=== PATIENT | male | born 1950 | race African-American/Black ===

== ENCOUNTER 2021-09-06 09:58 | Emergency (ER) | payer MEDICARE, SELFPAY ==
--- NOTE | ~2021-09-06 | XR_ITS ---
XR lumbar spine 2-3V 09/06/2021 10:36 Indication: Low back pain Procedure: 3 views lumbar spine Comparison: No prior studies for comparison. Findings: There is disc narrowing at L4-5 and L5-S1. There is mild lower lumbar facet hypertrophy. Th ere is a hemangioma of L4. No acute fracture, subluxation or dislocation. No evidence for spondylolis thesis. Impression: 1: Mild lumbar spondylosis. Reviewed, dictated and finalized at location A. KEN HANGER Impression: 1: Mild lumbar spondylosis.
[2021-09-06 10:03] VITALS: BP 160/64; PULSE 109; RESP 14; TEMP 36.8; O2SAT 97
--- NOTE | 2021-09-06 10:21 | ED.BACK ---
HPI - Back Pain/Injury General Chief Complaint: Back Pain/Injury Stated Complaint: back pain Time Seen by Provider: 09/06/21 10:11 History of Present Illness HPI Narrative: 70-year-old male history of chronic back pain presents to the emergency room with acute low back pain. Denies trauma or injury. States pain is worse when attempting to bend forward to pick out hand objects. Denies pain when rotating or bending back laterally. Patient denies saddle anesthesia. Patient denies difficulty urinating or with bowel habits. Denies radicular pain. Related Data Allergies Allergy/AdvReac Type Severity Reaction Status Date / Time No Known Allergies Allergy Uncoded 04/16/19 19:32 Review of Systems Review of Systems: CONSTITUTIONAL: Denies fever, chills, or sweats. EYES: Denies visual changes, redness, or discharge. ENT: Denies rhinorrhea, congestion, sore throat, or otalgia. CARDIOVASCULAR: Denies chest pain, palpitations, or edema. RESPIRATORY: Denies cough or dyspnea. GASTROINTESTINAL: Denies abdominal pain, nausea, vomiting, or diarrhea. GENITOURINARY: Denies dysuria or hematuria. SKIN: Denies rash or itching. MUSCULOSKELETAL: Reports low back pain NEUROLOGIC: Denies headache, numbness, dizziness, or weakness. PSYCHIATRIC: Denies anxiety or depression. [facility] Past Medical History Medical History (Updated 09/06/21 @ 11:45 by Sea Armas, TAP PULLER) Diabetes type 2, controlled Hyperlipidemia Hypertension Course Vital Signs Vital signs: Vital Signs Temperature 36.8 C 09/06/21 10:03 Pulse Rate 109 H 09/06/21 10:03 Respiratory Rate 14 09/06/21 10:03 Blood Pressure 160/64 H 09/06/21 10:03 Pulse Oximetry 97 09/06/21 10:03 Temperature 36.8 C 09/06/21 10:03 Pulse Rate 109 H 09/06/21 10:03 Respiratory Rate 14 09/06/21 10:03 Blood Pressure 160/64 H 09/06/21 10:03 Pulse Oximetry 97 09/06/21 10:03 MDM - Back Pain/Injury MDM Narrative Medical decision making narrative: Lumbar spine shows mild spondylosis, no acute abnormalities. UA was unremarkable. Send patient home with an anti-inflammatory and mild muscle relaxer for symptoms, have him follow-up with orthopedics or PCP as needed. Lab Data Labs: Lab Results 09/06/21 Range/Units 11:14 Urine Color Straw (Yellow) Urine Appearance Clear (Clear) Urine pH 7.0 (5.0-9.0) Ur Specific [place] 1.014 (1.001-1.035) Urine Protein Negative (Negative) mg/dL Urine Glucose (UA) Negative (Negative) mg/dL Urine Ketones Negative (Negative) mg/dL Ur Blood (Man) Negative (Negative) Urine Nitrate Negative (Negative) Urine Bilirubin Negative (Negative) Urine Urobilinogen Negative (<2.0) mg/dL Leukocyte Esterase Rfl Negative (Negative) ELVIS/UL Discharge Plan Discharge Clinical Impression: Strain of lumbar region Qualifiers: Encounter type: initial encounter Qualified Code(s): S39.012A - Strain of muscle, fascia and tendon of lower back, initial encounter Patient Disposition: Home, Self-Care Condition: Stable Instructions: Antibiotic Form, Acute Low Back Pain (ED) Prescriptions: New naproxen 500 mg tablet 500 mg PO BID Qty: 14 RF: 0 methocarbamol 750 mg tablet 750 mg PO TID Qty: 21 RF: 0 Follow-up/Referrals: DOROTEO,MD TRISTON [Primary Care Provider] - Time of Disposition: 11:44
[2021-09-06] MEDS: KETOROLAC (*BKC) 60 MG/2 ML VIAL IM (11:09)
[2021-09-06 11:25] LABS: Add Urine Microscopic? NO; Appearance Urine Clear (Clear); Bilirubin Urine Negative (Negative); Blood Urine Negative (Negative); Color Urine Straw (Yellow); Glucose Urine UA Negative (Negative); Ketones Urine Negative (Negative); Leukocyte Esterase Ur Negative LEU/UL (Negative); Nitrate Urine Negative (Negative); Protein Urine Negative (Negative); Specific Grav Ur 1.014 (1.001-1.035); Urobilinogen Urine Negative mg/dL (<2.0)
--- NOTE | 2021-09-06 11:41 | PC.NURSE ---
attempted to ambulate patient with walker and staff assist x2. patient only able to take steps. reports pain in right knee and muscle . Provider aware. patient back in bed and resting.
[2021-09-06 12:03] VITALS: BP 141/61; PULSE 94; RESP 20; O2SAT 92
== END 2021-09-06 12:09 | disposition home or self-care (01) ==
PROVIDERS: Emergency Provider Nurse Practitioner Family; PCP Family Medicine
DX: S39.012A Strain of muscle, fascia and tendon of lower back, initial encounter (principal); E11.9 Type 2 diabetes mellitus without complications; E78.5 Hyperlipidemia, unspecified; I10 Essential (primary) hypertension; X50.9XXA Other and unspecified overexertion or strenuous movements or postures, initial encounter
CPT/HCPCS: 72100; 81003; 96372; 99283; J1885

== ENCOUNTER 2022-02-07 14:01 | Emergency (ER) | payer MEDICARE, SELFPAY ==
--- NOTE | ~2022-02-07 | CT_ITS ---
EXAMINATION: CT abdomen pelvis wo con DATE: 02/07/2022 20:17 INDICATION: RUQ abdominal pain, eval for cholecystitis vs ston TECHNIQUE: Computed tomography (CT) of the abdomen and pelvis was performed without intravenous contr ast. Automated exposure control and iterative reconstruction technique were employed. The dose-length product was 1361.55 mGy-cm. COMPARISON: None. FINDINGS: Lower thorax: Bibasilar linear opacities with left dependent focal consolidation may reflect bilatera l atelectasis/scar. Liver: Normal. Biliary/Gallbladder: Gallbladder is normal. No bile duct dilation. Pancreas: No mass or duct dilation. Spleen: Normal. Adrenals:No mass. Kidneys: No stone or hydronephrosis. Multiple bilateral cysts. Right upper pole hemorrhagic cyst. Add itional possible hypodensities that are too small to characterize GI tract: No small or large bowel dilation. Normal appendix. Diverticulosis without diverticulitis. Mesentery/Peritoneum: No ascites, mass, or free air. Retroperitoneum: No mass. Mild atherosclerotic abdominal aortic and/or arterial calcifications. Pelvis: Mild bladder wall thickening, likely secondary to outlet obstruction from prostatomegaly. Soft Tissues: Soft tissues and body wall unremarkable. Bones: No acute osseous finding. Multiple Schmorl's nodes and vertebral body hemangiomas. Additional lytic lesions scattered in the visualized spine for example in S1, and left acetabular wall/superior pubic ramus. IMPRESSION: No CT evidence of cholecystitis or urolithiasis. No acute abdominopelvic process detected. Multiple l ytic bone lesions, correlate with history of malignancy and consider nonemergent, outpatient bone sca n for further evaluation Reviewed, dictated and finalized at location K. IMPRESSION: No CT evidence of cholecystitis or urolithiasis. No acute abdominopelvic proces s detected. Multiple lytic bone lesions, correlate with history of malignancy a nd consider nonemergent, outpatient bone scan for further evaluation
[2022-02-07 14:24] VITALS: BP 102/63; PULSE 89; RESP 20; TEMP 36.5; O2SAT 96
[2022-02-07 14:37] LABS: Basophils Absolute Auto 0.1 K/mm3 (0.0-0.1); Basophils Percent Auto 0.6 % (0.2-1.2); Eosinophils Absolute Auto 0.4 K/mm3 (0-0.3); Eosinophils Percent Auto 4.6 % (0-4.4); Hematocrit 27.1 % (42.0-52.0); Hemoglobin 8.4 g/dL (14.0-18.0); Immature Granulocyte Absolute 0.03 K/mm3 (0.00-0.031); Immature Granulocyte Percent A 0.4 % (0-0.5); Immature Platelet Fraction Pct 3.7 % (0.9-11.2); Lymphocytes Absolute Auto 3.01 K/mm3 (0.9-3.2); Lymphocytes Percent Auto 38.8 % (18.3-44.2); Mean Corpuscular Hemoglobin 23.1 pg (26-34); Mean Corpuscular Volume 74.5 fl (80-100); Mean Platelet Volume 10.1 fl (7.4-10.4); Monocytes Absolute Auto 0.8 K/mm3 (0.1-0.6); Monocytes Percent Auto 9.9 % (2.6-8.5); Neutrophils Absolute Auto 3.5 K/mm3 (1.3-6.7); Neutrophils Percent Auto 45.7 % (45.5-73.1); Platelet Count Result 233 k/mm3 (150-375); Red Blood Count 3.64 M/mm3 (4.6-6.20); Red Cell Distribution Width 23.2 % (11.5-14.5); White Blood Count 7.8 K/mm3 (4.5-10.0)
[2022-02-07 14:44] LABS: Alanine Aminotransferase 25 U/L (6-50); Albumin Level 4.7 g/dL (3.5-5.1); Alkaline Phosphatase 60 U/L (38-126); Anion Gap 14 mmol/L (8-16); Aspartate Amino Transferase 18 U/L (17-59); Blood Urea Nitrogen 38 mg/dL (9-20); Calcium 11.6 mg/dL (8.4-10.2); Carbon Dioxide 21 mmol/L (22-30); Chloride 103 mmol/L (98-107); Estimated CRCL calculation 30 ml/min; Estimated Glomerular Filt Rate 28; Glucose 203 mg/dL (65-110); Lipase 179 U/L (23-300); Potassium 5.6 mmol/L (3.4-5.0); Sodium 138 mmol/L (137-145)
[2022-02-07 14:51] LABS: Platelet Estimate Adequate (Adequate)
[2022-02-07 14:52] LABS: Anisocytosis 1+ (NORMAL); Ovalocytes 1+ (NORMAL); Tear Drop Cells 1+ (NORMAL)
[2022-02-07 17:18] VITALS: BP 113/58; PULSE 71; RESP 16; TEMP 36.5; O2SAT 100
[2022-02-07 18:20] LABS: Add Urine Microscopic? NO; Appearance Urine Clear (Clear); Bilirubin Urine Negative (Negative); Blood Urine Negative (Negative); Color Urine Yellow (Yellow); Glucose Urine UA Negative (Negative); Ketones Urine Negative (Negative); Leukocyte Esterase Ur Negative LEU/UL (Negative); Nitrate Urine Negative (Negative); Protein Urine Negative (Negative); Specific Grav Ur 1.015 (1.001-1.035); Urobilinogen Urine 0.2 mg/dL (<2.0)
[2022-02-07 19:37] VITALS: BP 115/51; PULSE 80; RESP 17; O2SAT 100
--- NOTE | 2022-02-07 19:54 | ED.ABDPAIN ---
HPI - Abdominal Pain General Chief Complaint: Abdominal Pain Stated Complaint: Right rib pain, x 2 weeks Time Seen by Provider: 02/07/22 19:35 History of Present Illness HPI narrative: This is a 71-year-old male with past medical history of chronic kidney disease, who presents to the emergency department with right upper quadrant pain over the past day. He describes the pain as sharp, severe when aggravated by deep breaths or direct pressure. He denies aggravation with food or fluids. He states this has been intermittently occurring for the past year but has been worse in the past day. Is not associated with fevers, chills, vomiting, diarrhea, or blood in stool. He denies dysuria or rash. He denies chest pain or shortness of breath. Related Data Allergies Allergy/AdvReac Type Severity Reaction Status Date / Time No Known Allergies Allergy Unknown Uncoded 02/07/22 19:51 Review of Systems Review of Systems: CONSTITUTIONAL: Denies fever, chills, or sweats. EYES: Denies visual changes, redness, or discharge. ENT: Denies rhinorrhea, congestion, sore throat, or otalgia. CARDIOVASCULAR: Denies chest pain, palpitations, or edema. RESPIRATORY: Denies cough or dyspnea. GASTROINTESTINAL: +Right upper quadrant abdominal pain, denies nausea, vomiting, or diarrhea. GENITOURINARY: Denies dysuria or hematuria. SKIN: Denies rash or itching. MUSCULOSKELETAL: Denies back pain, joint pain, or myalgia. NEUROLOGIC: Denies headache, numbness, dizziness, or weakness. PSYCHIATRIC: Denies anxiety or depression. [facility] Past Medical History Medical History (Updated 02/07/22 @ 23:54 by Sergio Galvin MD) Diabetes type 2, controlled Hyperlipidemia Hypertension Exam Narrative: GENERAL: Well-appearing, well-nourished, and in no acute distress. HEAD: Normocephalic, atraumatic. EYES: PERRLA and EOMI. ENT: Nares clear, no rhinorrhea or epistaxis. Mucous membranes moist. Oropharynx without tonsillar hypertrophy exudate or other lesions. NECK: Supple. No adenopathy or masses. No carotid bruits or JVD CHEST: Clear to auscultation. No respiratory distress. No wheezes rales or rhonchi HEART: Regular rate and rhythm. No murmur heard. Normal peripheral pulses. ABDOMEN: Soft, tender to deep palpation in the right upper quadrant and epigastrium nondistended, normal active bowel sounds. EXTREMITIES: Normal range of motion. No edema. SKIN: Warm, dry, no rash. NEURO: No focal deficits. Alert and oriented x3. PSYCH: Normal mood and affect. Course Course Emergency Course: 19:45 - Discussed risk of CT scan with contrast exposure and theoretical risk of injury to the kidneys. This has been disproven by both nephrology and radiology. The patient voices understanding and is comfortable with proceeding with a CT scan. 20:55 -CT nonspecific for right upper quadrant pain. Patient's initial troponin elevated at 0.052. I suspect this is related to his chronic kidney disease, however we will repeat the troponin at 3 hours and reassess. Patient just received Pepcid, will reassess. If patient's pain is improved and troponin is not significantly elevated, will discharge with primary care follow-up. Discussed current findings with the patient who voices understanding and is comfortable with the plan. 23:53 - Repeat troponin negative. Patient states his pain is somewhat improved. Will discharge with primary care follow-up. The patient voiced understanding and is comfortable with the plan. Vital Signs Vital signs: Vital Signs Temperature 97.7 F 02/07/22 14:24 Pulse Rate 89 02/07/22 14:24 Respiratory Rate 20 02/07/22 14:24 Blood Pressure 102/63 02/07/22 14:24 Pulse Oximetry 96 02/07/22 14:24 Oxygen Delivery Room Air 02/07/22 14:24 Temperature 97.7 F 02/07/22 17:18 Pulse Rate 72 02/07/22 22:32 Respiratory Rate 19 02/07/22 22:32 Blood Pressure 103/48 L 02/07/22 22:43 Pulse Oximetry 99 02/07/22 22:32 Oxygen Delivery Room Air
--- NOTE | 2022-02-07 19:58 | ECG_ITS ---
Measurements Intervals [place] Rate: 75 P: 32 NE: 189 QRS: 17 QRSD: 95 T: 2 QT: 367 QTc: 412 Interpretive Statements SINUS RHYTHM NO PREVIOUS ECG AVAILABLE FOR COMPARISON Electronically Signed On 02-08-2022 11:37:37 CDT by Elder Landeros M.D.
[2022-02-07 20:37] LABS: Troponin I 0.051 ng/mL (0.000-0.034)
[2022-02-07] MEDS: FAMOTIDINE 20 MG/2 ML VIAL IV PUSH (20:51)
[2022-02-07 21:16] VITALS: BP 136/41; PULSE 74; RESP 12; O2SAT 100
[2022-02-07 21:26] LABS: Glucose Point of Care 152 mg/dl (65-105)
[2022-02-07 22:32] VITALS: PULSE 72; RESP 19; O2SAT 99
[2022-02-07 22:43] VITALS: BP 103/48
[2022-02-07 23:44] LABS: Troponin I < 0.012 ng/mL (0.000-0.034)
[2022-02-08 00:11] VITALS: BP 143/58; PULSE 81; RESP 20; O2SAT 97
== END 2022-02-08 00:11 | disposition home or self-care (01) ==
PROVIDERS: Emergency Medicine; Emergency Provider Preventive Medicine Aerospace Medicine
DX: R10.11 Right upper quadrant pain (principal); I12.9 Hypertensive chronic kidney disease with stage 1 through stage 4 chronic kidney disease, or unspecified chronic kidney disease; E11.22 Type 2 diabetes mellitus with diabetic chronic kidney disease; N18.9 Chronic kidney disease, unspecified; E78.5 Hyperlipidemia, unspecified
CPT/HCPCS: 36415; 74176; 80053; 81003; 82948; 83690; 84484; 85025; 85055; 93005; 96374; 99284

== ENCOUNTER 2022-02-22 18:00 | Emergency (ER) | payer MEDICARE, SELFPAY ==
--- NOTE | ~2022-02-22 | CT_ITS ---
EXAMINATION: CT shoulder RT wo con DATE: 02/22/2022 20:26 INDICATION: Right shoulder injury. TECHNIQUE: Computed tomography (CT) of the right shoulder was performed without intravenous contrast. Automated exposure control and iterative reconstruction technique were employed. The dose-length pro duct was 808.76 mGy-cm. COMPARISON: Right shoulder radiographs 02/22/22 FINDINGS: Bone alignment is normal. There are widespread lytic lesions of bone. There is a pathologic fracture of right acromion with 3 mm posterolateral displacement of the distal fracture fragment. Th ere is mild osteoarthritis of glenohumeral joint and acromioclavicular joint. There are healing fract ures of multiple right-sided ribs. IMPRESSION: 1. Widespread lytic lesions of bone, consistent with multiple myeloma or less likely metastatic disea se. 2. Pathologic fracture of right acromion. Reviewed, dictated and finalized at location A. IMPRESSION: 1. Widespread lytic lesions of bone, consistent with multiple myeloma or less l ikely metastatic disease. 2. Pathologic fracture of right acromion.
--- NOTE | ~2022-02-22 | XR_ITS ---
EXAMINATION: XR shoulder RT min 2V DATE: 02/22/2022 18:33 INDICATION: Right shoulder pain. TECHNIQUE: 4 views of right shoulder were obtained. COMPARISON: None. FINDINGS: Bone alignment is normal. No fracture. There are widespread lytic lesions of bone including the scapula, clavicle, humerus, and ribs. Joint spaces are normal. IMPRESSION: 1. Widespread lytic lesions of bone, consistent with multiple myeloma versus metastatic disease. Reviewed, dictated and finalized at location A. IMPRESSION: 1. Widespread lytic lesions of bone, consistent with multiple myeloma versus me tastatic disease.
[2022-02-22 18:06] VITALS: BP 142/78; PULSE 94; RESP 20; TEMP 36.7; O2SAT 97
[2022-02-22] MEDS: HYDROcodone/acetaminophen (*CRX) 5-325 MG TABLET 1 TAB PO (20:11)
--- NOTE | 2022-02-22 20:49 | ED.GENADULT ---
HPI - General Adult General Chief complaint: Extremity Injury, Upper Stated complaint: r shoulder pain after glf Time Seen by Provider: 02/22/22 19:46 History of Present Illness HPI narrative: Patient is a 71-year-old male who presents ER with right shoulder pain. He was walking when he tripped and fell forwards. His hand struck trying to brace himself. He had sudden onset pain in his right shoulder. Has discomfort with trying to abduct and perform forward flexion. No numbness or tingling. Did not strike his head or lose consciousness. He was recently seen in the ER and told he had some lytic lesions in the bones of his low back and legs. He has no known active cancer. He has not been diagnosed with multiple myeloma. He followed up with his PCP but they had not seen any of the images and could not make any recommendations on where he should go next. Patient denies any fevers or chills or sweats. He is having no chest pain or chest pressure. No additional concerns at this time. Related Data Allergies Allergy/AdvReac Type Severity Reaction Status Date / Time No Known Allergies Allergy Unknown Uncoded 02/22/22 19:53 Review of Systems Review of Systems: All systems reviewed & are unremarkable except as noted in HPI and below Constitutional: Constitutional: Denies chills and Denies fever(s) Cardiovascular: Cardiovascular: Denies chest pain and Denies radiating jaw, neck or arm pain Musculoskeletal: Musculoskeletal: Denies myalgias, Reports arthralgias and Denies joint swelling PMFSH Past Medical History Medical History (Updated 02/22/22 @ 21:17 by Feng Black MD) Diabetes type 2, controlled Hyperlipidemia Hypertension Renal insufficiency Exam Narrative: GENERAL: Well-appearing, well-nourished, and in no acute distress. HEAD: Normocephalic, atraumatic. CHEST: Clear to auscultation. No respiratory distress. HEART: Regular rate and rhythm. Normal peripheral pulses. EXTREMITIES: Limited range of motion of the right shoulder with active movement due to pain. Patient is able to perform internal and external rotation with passive range of motion and his arm can be ranged above 90 degrees with abduction forward flexion passively. Patient is tender over the AC process. SKIN: Warm, dry, no rash. NEURO: Alert and oriented x3. PSYCH: Normal mood and affect. Course Course Emergency Course: Patient informed of diagnosis. Placed in sling for comfort. Discussed with Dr. Santos who is happy to see the patient in follow-up but this is not an operative treatment. Dr. Soni with hematology/oncology would like patient follow-up in the next week. She believes due to the constellation of low hemoglobin, elevated calcium, and renal insufficiency the patient most likely has multiple myeloma. Patient will need a bone marrow biopsy. Discussed the diagnosis and need for follow-up with the patient and his who verbalized understanding. Vital Signs Vital signs: Vital Signs Temperature 98.0 F 02/22/22 18:06 Pulse Rate 94 02/22/22 18:06 Respiratory Rate 20 02/22/22 18:06 Blood Pressure 142/78 H 02/22/22 18:06 Pulse Oximetry 97 02/22/22 18:06 Oxygen Delivery Room Air 02/22/22 18:06 Temperature 98.0 F 02/22/22 18:06 Pulse Rate 94 02/22/22 18:06 Respiratory Rate 20 02/22/22 18:06 Blood Pressure 142/78 H 02/22/22 18:06 Pulse Oximetry 97 02/22/22 18:06 Oxygen Delivery Room Air 02/22/22 18:06 Medical Decision Making Vital Signs Vital Signs: Vital Signs Temperature 98.0 F 02/22/22 18:06 Pulse Rate 94 02/22/22 18:06 Respiratory Rate 20 02/22/22 18:06 Blood Pressure 142/78 H 02/22/22 18:06 Pulse Oximetry 97 02/22/22 18:06 Oxygen Delivery Room Air 02/22/22 18:06 Temperature 98.0 F 02/22/22 18:06 Pulse Rate 94 02/22/22 18:06 Respiratory Rate 20 02/22/22 18:06 Blood Pressure 142/78 H 02/22/22 18:06 Pulse Oximetry 97 02/22/22 18:06 Oxygen Deli
[2022-02-22 21:47] VITALS: BP 125/44; PULSE 83; RESP 20; O2SAT 96
== END 2022-02-22 21:49 | disposition home or self-care (01) ==
PROVIDERS: Emergency Provider Emergency Medicine
DX: S42.121A Displaced fracture of acromial process, right shoulder, initial encounter for closed fracture (principal); E11.9 Type 2 diabetes mellitus without complications; E78.5 Hyperlipidemia, unspecified; I10 Essential (primary) hypertension; N28.9 Disorder of kidney and ureter, unspecified; M89.9 Disorder of bone, unspecified; Z79.4 Long term (current) use of insulin; W01.0XXA Fall on same level from slipping, tripping and stumbling without subsequent striking against object, initial encounter
CPT/HCPCS: 73030; 73200; 99284; A4565; A9270

== ENCOUNTER 2022-02-24 11:27 | Inpatient (IN) | payer MEDICARE, SELFPAY ==
[2022-02-24] VITALS (19 sets, daily range): BP systolic 124–173; BP diastolic 52–85; PULSE 73–121; RESP 10–22; TEMP 36.3–37.1; O2SAT 95–100; BMI 38.5
--- NOTE | ~2022-02-24 | US_ITS ---
US retroperitoneal limited 02/25/2022 08:44 Procedure: Realtime transabdominal ultrasound of the kidneys and bladder. Study limited by bowel gas. Indication: Renal failure Comparison: No prior studies for comparison. Findings: Renal echotexture is normal bilaterally without hydronephrosis, contour deforming mass or r enal calculus. There are bilateral renal cysts, largest on the right measuring 1.1 cm in largest on t he left measures 2.4 cm. The right kidney measures 11.1 cm cm and left kidney measures 11.6 cm cm. B ladder within normal limits. Impression: 1: Bilateral renal cysts. Reviewed, dictated and finalized at location B. Impression: 1: Bilateral renal cysts.
--- NOTE | ~2022-02-24 | BM_ITS ---
EXAMINATION: CCL bone marrow asp w bx diag ORDER COMPLETED DATE: 02/25/2022 10:54 INDICATION: Renal failure and lytic bone lesions. TECHNIQUE: A time-out was performed to verify the patient's name, date of , and procedure to b e performed. The procedure including the risks and benefits was discussed with the patient. Risks dis cussed included bleeding, infection, nerve injury and allergic reaction. The patient understood the r isks and agreed to proceed. The skin overlying the right posterior iliac spine was prepped and draped in usual sterile fashion. Anesthetic was administered with 1% lidocaine subcutaneously. Moderate co nscious sedation was achieved with 50 mcg fentanyl IV. An 11 gauge needle was inserted into the ilium with fluoroscopic guidance. Attempted bone marrow aspirations yielded a dry tap, therefore a core bi opsy was obtained for marrow smears. An 8 gauge needle was then inserted into the ilium with fluorosc opic guidance. A core bone marrow biopsy was obtained. The needle was removed and the entry site was cleaned and dressed. There were no immediate complications. A total of 16 fluoroscopic images were r ecorded. Fluoroscopy exposure time was 0.3 minutes. FINDINGS: Real-time fluoroscopy demonstrates the biopsy needle tip overlying the right posterior lizette c spine. IMPRESSION: 1. Successful fluoroscopic guided bone marrow aspiration. 2. Successful fluoroscopic guided bone marrow biopsy. Reviewed, dictated and finalized at location A.
--- NOTE | ~2022-02-24 | XR_ITS ---
XR chest 2V 02/25/2022 07:54 Indication: Renal failure Procedure: 2 view chest Comparison: No prior studies for comparison. Findings: Heart size normal. No focal pneumonia, edema, pleural effusion or pneumothorax. There is bi basilar atelectasis. Impression: 1: Bibasilar atelectasis. Reviewed, dictated and finalized at location B. Impression: 1: Bibasilar atelectasis.
[2022-02-24 12:33] LABS: Hematocrit 26.9 % (42.0-52.0); Hemoglobin 8.5 g/dL (14.0-18.0); Immature Platelet Fraction Pct 2.6 % (0.9-11.2); Mean Corpuscular HGB Conc 31.6 g/dl (32-36); Mean Corpuscular Hemoglobin 23.4 pg (26-34); Mean Corpuscular Volume 74.1 fl (80-100); Mean Platelet Volume 9.2 fl (7.4-10.4); Platelet Count Result 226 k/mm3 (150-375); Red Blood Count 3.63 M/mm3 (4.6-6.20); Red Cell Distribution Width 23.1 % (11.5-14.5); White Blood Count 8.1 K/mm3 (4.5-10.0)
[2022-02-24 12:42] LABS: Alanine Aminotransferase 21 U/L (6-50); Albumin Level 4.7 g/dL (3.5-5.1); Alkaline Phosphatase 80 U/L (38-126); Anion Gap 12 mmol/L (8-16); Aspartate Amino Transferase 21 U/L (17-59); Bilirubin,Total 0.7 mg/dL (0.2-1.3); Blood Urea Nitrogen 49 mg/dL (9-20); Calcium 11.8 mg/dL (8.4-10.2); Carbon Dioxide 21 mmol/L (22-30); Chloride 105 mmol/L (98-107); Estimated CRCL calculation 23 ml/min; Estimated Glomerular Filt Rate 20; Glucose 140 mg/dL (65-110); Potassium 5.7 mmol/L (3.4-5.0); Sodium 138 mmol/L (137-145)
[2022-02-24 13:16] LABS: Band Neutrophils Percent 1 % (0-6); Eosinophils Absolute Manual 0.32 K/mm3 (0.02-0.5); Eosinophils Percent Manual 4 % (0-4); Lymphocytes Absolute Manual 3.64 K/mm3 (1.1-4.5); Metamyelocytes Percent 2 %; Monocytes Absolute Manual 0.56 K/mm3 (0.1-0.90); Monocytes Percent Manual 7 % (3-9); Neutrophils Percent Manual 41 % (46-73); Platelet Estimate Adequate (Adequate); Total Cells Counted 100
[2022-02-24 13:34] LABS: Anisocytosis 3+ (NORMAL); Microcytosis 2+ (NORMAL); Ovalocytes 3+ (NORMAL); Poikilocytosis 2+ (NORMAL)
[2022-02-24 13:35] LABS: Tear Drop Cells 2+ (NORMAL)
[2022-02-24 13:37] LABS: Acanthocytes 1+ (NORMAL); Hypochromasia 2+ (NORMAL); Target Cells 1+ (NORMAL)
--- NOTE | 2022-02-24 13:47 | ECG_ITS ---
Measurements Intervals [place] Rate: 120 P: 13 CA: 165 QRS: 41 QRSD: 99 T: -3 QT: 314 QTc: 444 Interpretive Statements SINUS TACHYCARDIA POSSIBLE INFERIOR MYOCARDIAL INFARCTION , OF INDETERMINATE AGE WITH POSTERIOR EXTENSION [40+ ms Q WAVE AND/OR ST/T ABNORMALITY IN II/aV ABNORMAL ECG COMPARED TO ECG 02/07/2022 20:25:11 SINUS TACHYCARDIA NOW PRESENT MYOCARDIAL INFARCT FINDING NOW PRESENT Electronically Signed On 02-24-2022 14:46:31 CDT by Sea Giraldo M.D.
--- NOTE | 2022-02-24 13:59 | ED.RECABL ---
HPI - Recheck/Abnormal Lab/Rx General Chief Complaint: Recheck/Abnormal Lab/Rx <Shaina Li PA-C - Last Filed: 02/24/22 15:20> Stated Complaint: abnormal labs <Shaina Li PA-C - Last Filed: 02/24/22 15:20> Time Seen by Provider: 02/24/22 13:44 <DES Ghotra Last Filed: 02/24/22 15:20> Source: patient <Shaina Li PA-C - Last Filed: 02/24/22 15:20> Mode of arrival: ambulatory <DES Ghotra Last Filed: 02/24/22 15:20> Limitations: no limitations <Shaina Li PA-C - Last Filed: 02/24/22 15:20> History of Present Illness HPI narrative: This is a 71 year old male that present to the ER for abnormal labs. Reports he was called by his PCP and told his creatinine was elevated and he should go to the ER. He does have known history of chronic kidney disease. Patient does report he takes potassium supplementation daily. Recently was found to have some lytic lesions on imaging. He has follow-up with an oncologist tomorrow. Reports some feelings of palpitations. Otherwise does not currently have any complaints. Denies chest pain or shortness of breath. <Shaina Li PA-C - Last Filed: 02/24/22 15:20> Related Data Allergies/Adverse Reactions: Allergies Allergy/AdvReac Type Severity Reaction Status Date / Time No Known Allergies Allergy Unknown Uncoded 02/22/22 19:53 <DES Ghotra Last Filed: 02/24/22 15:20> Review of Systems Review of Systems: CONSTITUTIONAL: Denies fever CARDIOVASCULAR: Denies chest pain RESPIRATORY: Denies dyspnea. GASTROINTESTINAL: Denies abdominal pain, nausea, vomiting <DES Ghotra Last Filed: 02/24/22 15:20> All systems reviewed & are unremarkable except as noted in HPI and below <DES Ghotra Last Filed: 02/24/22 15:20> [facility] Past Medical History Medical History: Medical History Diabetes type 2, controlled Hyperlipidemia Hypertension Renal insufficiency <Shaina Li PA-C - Last Filed: 02/24/22 15:20> Family History Family History: Family History (Updated 02/24/22 @ 17:29 by Apurva Dooley RN) Mother Heart failure Sibling Myocardial infarction <Shaina Li PA-C - Last Filed: 02/24/22 15:20> Social History Social History: Social History Smoking status: Never smoker <Shaina Li PA-C - Last Filed: 02/24/22 15:20> Exam Narrative: GENERAL: Well-appearing, well-nourished, and in no acute distress. HEAD: Normocephalic, atraumatic. EYES: EOMI. CHEST: Clear to auscultation. No respiratory distress. No wheezes rales or rhonchi HEART: Regular rate and rhythm. No murmur heard. Normal peripheral pulses. ABDOMEN: Soft, nontender, nondistended, normal active bowel sounds. EXTREMITIES: Normal range of motion. No edema. SKIN: Warm, dry, no rash. NEURO: No focal deficits. Alert and oriented x3. PSYCH: Normal mood and affect <Shaina Li PA-C - Last Filed: 02/24/22 15:20> Course PHYSICIAN PRESIDENT/PA Physician Supervision For this patient encounter, I reviewed the PHYSICIAN PRESIDENT or PA documentation, treatment plan, and medical decision making <Alex Hunt MD - Last Filed: 02/24/22 17:29> Consultations Consultation #1: Also spoke with oncology about work-up. I added on several labs, and have ordered for a bone marrow biopsy <Shaina Li PA-C - Last Filed: 02/24/22 15:20> Date: 02/24/22 <Shaina Li PA-C - Last Filed: 02/24/22 15:20> Time: 15:16 <Shaina Li PA-C - Last Filed: 02/24/22 15:20> Consultation #2: Spoke with hazardous waste remover about patient and work-up who will consult <Shaina Li PA-C - Last Filed: 02/24/22 15:20> Date: 02/24/22 <Shaina Li PA-C - Last Filed: 02/24/22 15:20> Time: 15:16 <Shaina Li PA-C - Last Filed: 02/24/22 15:20> Consultation #3:
[2022-02-24] MEDS: SODIUM CHLORIDE 0.9% IV 500 ML 999 ML IV CONT (14:19)
[2022-02-24] MEDS: SODIUM BICARBONATE 8.4% 50 MEQ/50 ML SYRINGE IV PUSH (14:19)
[2022-02-24] MEDS: CALCIUM GLUCONATE 1,000 MG/10 ML VIAL 1000 MG IV PUSH (14:19)
[2022-02-24] MEDS: DEXTROSE 50% 25 GM/50 ML SYRINGE IV PUSH (14:19)
[2022-02-24] MEDS: INSULIN HUMAN REGULAR (*BKC) 100 UNITS/ML 10 UNITS IV PUSH (14:20)
[2022-02-24 15:23] LABS: INR 1.2; Lactate Dehydrogenase 145 U/L (120-246); Prothrombin Time 14.4 Seconds (11.1-14.7)
[2022-02-24 15:24] LABS: Partial Thromboplastin Time 28.6 SECONDS (22.3-36.8)
--- NOTE | 2022-02-24 15:36 | PC.NURSE ---
patient is scheduled for bone marrow biopsy in [facility] for 10am
--- NOTE | 2022-02-24 16:30 | PM.IMHP ---
H&P: HPI History of Present Illness Date/Time: 02/24/22 16:30 Chief Complaint: Abnormal lab work. Narrative: This is a very pleasant 71-year-old male with hypertension, dyslipidemia, type 2 diabetes mellitus, and chronic kidney disease who presented to the emergency department at the direction of his primary care provider for further evaluation after he was found to have abnormal labs. Over the last 6 months or so he has had generalized aches and pains and more recently he started having discomfort in the right flank region. He was seen emergency department on 02/07/2022 for evaluation of that in addition to right upper quadrant discomfort. CT of the abdomen and pelvis showed no acute abdominopelvic process but did note multiple lytic bone lesions for which he saw his doctor and follow-up this week. At that time it was noted that his creatinine was a bit more elevated than his baseline and he was instructed to only take a Tylenol and to avoid Aleve for aches and pains. It should also be noted that he was seen in the emergency department on 02/22/2022 for evaluation of right shoulder pain after a ground level fall at which time he was found to have a pathologic fracture of the right acromion, with imaging also showing once again widespread lytic lesions of the bone consistent with/suspicious for multiple myeloma. Labs drawn today as an outpatient demonstrated worsening creatinine when compared to those done just a couple of weeks ago in addition to hypercalcemia and microcytic anemia. At this time he is being admitted for further workup including bone marrow biopsy and consultation with Nephrology and Oncology. At the time my evaluation he is resting comfortably. He does endorse a decrease in appetite recently but no nausea or vomiting. He has not had any significant weight loss. No confusion, fever, chills, sweats, lymphadenopathy, chest pain, shortness of breath, abdominal pain. Review of Systems Review of Systems: Twelve systems were reviewed and are negative except for as per HPI. [facility] Past Medical History Medical History (Updated 02/24/22 @ 21:37 by Jes López PA-C) Chronic kidney disease Glaucoma Hyperlipidemia Hypertension Insulin dependent type 2 diabetes mellitus Family History Family History Mother Heart failure Sibling Myocardial infarction Social History Social History (Updated 02/24/22 @ 21:35 by Jes López PA-C) Social History: Surrogate medical decision maker: Dora Mendoza, spouse. Code status: Full code. Smoking packs per day: 1 Smoking cigarettes per day: 20.0 Years smoked: 10 Smoking pack-years: 10.00 Smoking status: Former smoker Tobacco type: cigarettes Alcohol intake: never Substance use: never Substance use type: does not use Additional living arrangements comments: The patient lives with his , daughter, and grandson in [place]. Additional occupation/education comments: Retired from [employer]. Spiritual care concerns: No Meds Home Medications and Allergies Home Medications Medication Instructions Recorded Confirmed Type acetaminophen 500 mg tablet 1,000 mg PO .Every 8 hours PRN 02/07/22 02/24/22 Rx (Tylenol Extra Strength) pain #60 tabs hydrocodone 5 mg-acetaminophen 325 1 tablet PO Q6H PRN pain #20 tabs 02/22/22 02/24/22 Rx mg tablet amlodipine 10 mg tablet 10 mg PO DAILY 02/24/22 02/24/22 History atorvastatin 80 mg tablet 80 mg PO HS 02/24/22 02/24/22 History insulin glargine U-300 conc 300 120 unit subcut HS 02/24/22 02/24/22 History unit/mL (3 mL) subcutaneous pen (Toujeo Max U-300 SoloStar) insulin lispro 200 unit/mL (3 mL) 45 unit subcut TID 02/24/22 02/24/22 History subcutaneous pen (Humalog KwikPen U-200 Insulin) latanoprost 0.005 % eye drops 1 drp EACH EYE 02/24/22 02/24/22 History lisinopril 40 mg tablet 40 mg PO DAILY 02/24/22 02/24/22 History metopro
--- NOTE | 2022-02-24 16:53 | PDONCCONNOTE ---
Impression multiple lytic bone lesion on the CT shoulder and CT abdomen and pelvis he has pathological fracture of the acromion after he had a fall last week. suspcious for multiple myeloma with anemia , renal failure and hypercalcemia and lytic bone lesion. pls order the Serum protein electrophoresis , urine protein electrophoresis , LDH , beta 2 microglobulin level, uric acid reccommend the one dose of rasbirucase for possible tumor lysis syndrome with high uric acid . however rasbirucase is not avaialbe here will start the allopurinol 100mg bid for high uric acid IV hydration. will have bone marrow biopsy and FISH study for plasma cell neoplasm. will keep Hb above 7 and transfuse PRBC if Hb is less than 7. patient will follow up with Dr Thomas as outpatient once the bone marrow biopsy result is out. [facility] - Date/Time Seen 02/24/22 16:53 - History of Present Illness This is a 71 year old male that present to the ER for abnormal labs. Reports he was called by his PCP and told his creatinine was elevated and he should go to the ER. He does have known history of chronic kidney disease. Recently was found to have some lytic lesions on imaging. oncology consult is for suspicious for multiple myeloma. Patient has had diabetes since 2002. The patient was in the emergency room on February 07 with low back pain. At that time his creatinine was 2.7. he is also found to have chronic anemia he had a fall and hurt his right shoulder. X-rays were done which showed lytic lesions. he is planned to be seen by oncologist at outpatient but he is sent back to ER due to worsening of renal function social histlry : He does not smoke or drink. PMH: diabetes, hypertension, elevated creatinine, arthritis, GERD. Family history : there is no significant family history of malignancy. 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 - Family History Family History (Last Reviewed 02/24/22 @ 21:34 by Jes López PA-C) Mother Heart failure Sibling Myocardial infarction - Social History Social History (Last Updated 02/24/22 @ 21:35 by Jes López PA-C) Alcohol Use: Alcohol intake: never Substance Use: Substance use: never Substance use type: does not use Others: Spiritual care concerns: No Smoking Status: Smoking status: Former smoker Tobacco type: cigarettes Approximate Smoking End Date: 1979 Smoking Pack-years: Smoking packs per day: 1 Smoking cigarettes per day: 20.0 Years smoked: 10 Smoking pack-years: 10.00 - Allergies Allergies Allergy/AdvReac Type Severity Reaction Status Date / Time No Known Allergies Allergy Unknown Uncoded 02/22/22 19:53 Review of Systems - Review of Systems All systems reviewed & are unremarkable except as noted in HPI and bel Exam - Vital Signs Vital Signs - 24 hr 02/24/22 12:01 02/24/22 14:19 02/24/22 14:30 Temperature 37.1 C Pulse Rate 115 H 118 H 118 H Respiratory Rate 18 14 17 Blood Pressure 140/58 L Pulse Oximetry 98 97 100 Oxygen Delivery Room Air 02/24/22 14:31 02/24/22 14:45 02/24/22 14:46 Temperature Pulse Rate 115 H 113 H 110 H Respiratory Rate 14 12 14 Blood Pressure 158/52 H 150/55 H Pulse Oximetry 100 100 99 Oxygen Delivery 02/24/22 14:47 02/24/22 15:00 02/24/22 15:01 Temperature Pulse Rate 107 H 121 H 117 H Respiratory Rate 18 15 10 L Blood Pressure 173/59 H Pulse Oximetry 99 99 97 Oxygen Delivery 02/24/22 15:15 02/24/22 15:17 02/24/22 15:30 Temperature Pulse Rate 106 H 106 H 105 H Respiratory Rate 22 H 21 H 17 Blood Pressure 140/57 L Pulse Oximetry 99 98 99 Oxygen Delivery 02/24/22 15:31 02/24/22 16:28 02/24
[2022-02-24 17:10] LABS: Glucose Point of Care 134 mg/dl (65-105)
--- NOTE | 2022-02-24 17:20 | PM.CNNEP ---
Assessment and Plan Assessment and plan (1) Acute on chronic kidney failure: Qualifiers: Acute renal failure type: unspecified Chronic kidney disease stage: stage 4 (severe) Qualified Code(s): N17.9 - Acute kidney failure, unspecified; N18.4 - Chronic kidney disease, stage 4 (severe) Code(s): N17.9 - Acute kidney failure, unspecified; N18.9 - Chronic kidney disease, unspecified Status: Acute (2) Lytic bone lesion of hip: Code(s): M89.8X5 - Other specified disorders of bone, thigh Status: Acute (3) Diabetes type 2, controlled: Code(s): E11.9 - Type 2 diabetes mellitus without complications Status: Acute (4) Hypertension: Code(s): I10 - Essential (primary) hypertension Status: Acute (5) Hyperlipidemia: Code(s): E78.5 - Hyperlipidemia, unspecified Status: Acute (6) Acute hyperkalemia: Code(s): E87.5 - Hyperkalemia Status: Acute Plan 1. The patient seems to have chronic kidney disease. We will check records from his primary care physician. The chronic kidney disease could be from hypertension or diabetes. This depends on his proteinuria. The patient also has lytic lesion and so could possibly have myeloma. This could certainly cause some chronicity but also could explain the recent rise in his creatinine over the last few months. The patient has hypercalcemia. This inhibits ROM K and so this can cause dehydration. So pre renal azotemia could be causing his rise in creatinine as well. Because of the way hypercalcemia works, urine sodium may not be accurate so will get a urine urea nitrogen as well. Obstruction can always cause high creatinine. Rhabdomyolysis can cause high creatinine as well along with high potassium will check a CPK. I think it is unlikely but other disorders are possible such as allergic interstitial nephritis, and glomerulonephritis. At this point will check urine electrolytes, urine urea nitrogen, CPK I talked with the oncologist is going to give him pamidronate and possibly rasburicase. She is considering tumor lysis syndrome. Will give IV fluids to the patient. He is most likely dehydrated. If this is tumor lysis syndrome also he would need hydration with Lasix chasers if he develops any swelling. Will watch his urine output. 2. The patient has hypertension. Blood pressure is a little on the high side. Will give amlodipine. 3. Patient has diabetes. He will be on Accu-Cheks and sliding scale insulin per hospitalist. 4. The patient has lytic lesions. Consider multiple myeloma or some other cancer. Hematology is on the case 5. Hyperkalemia the patient received measures already. Will repeat this level now and the nurse will call me with the result. History of Present Illness Reason for Consult Consult date: 02/24/22 Chief Complaint Chief complaint: Hyperkalemia,Acute on Chronic Kidney Dysfunction History of Present Illness Narrative: Willam is a very pleasant 71-year-old gentleman who has multiple medical problems including diabetes, hypertension, elevated creatinine, arthritis, GERD. Patient has had diabetes since 2002. Sugars have been fairly well controlled. No diabetic retinopathy. He follows with an in home tutor. The patient has hypertension. This is been going on since the . It is also bit pretty well controlled. He has never had a stroke or heart attack. The patient has been following with his in home tutor and that doctor has been telling him that his creatinine has been going up and down, always mildly elevated. However in the last few months his creatinine has gradually risen steadily. The patient was in the emergency room on February 07 with low back pain. At that time his creatinine was 2.7. He was on naproxen at the time. He was told to stop the naproxen and follow-up with his primary care physician. He did so and he checked more blood work and found that his creatinine was wors
[2022-02-24 18:13] LABS: Potassium 5.7 mmol/L (3.4-5.0)
[2022-02-24 18:18] LABS: Anion Gap 11 mmol/L (8-16); Blood Urea Nitrogen 44 mg/dL (9-20); Calcium 12.1 mg/dL (8.4-10.2); Carbon Dioxide 24 mmol/L (22-30); Chloride 105 mmol/L (98-107); Estimated CRCL calculation 26 ml/min; Estimated Glomerular Filt Rate 22; Glucose 148 mg/dL (65-110); Magnesium 2.1 mg/dL (1.6-2.3); Potassium 5.8 mmol/L (3.4-5.0); Sodium 140 mmol/L (137-145)
[2022-02-24 18:18] LABS: Alkaline Phosphatase 84 U/L (38-126)
[2022-02-24 18:29] LABS: Parathyroid Intact 9.8 pg/mL (7.5-53.5)
[2022-02-24] MEDS: SODIUM CHLORIDE 0.9% IV 1,000 ML 125 ML IV CONT (18:39)
[2022-02-24] MEDS: amLODIPine BESYLATE 2.5 MG TABLET PO (18:40)
[2022-02-24] MEDS: allopurinoL 100 MG TABLET PO (18:40)
[2022-02-24 19:22] LABS: Lactate Dehydrogenase 149 U/L (120-246)
[2022-02-24 19:23] LABS: Creatine Kinase 193 U/L (55-170)
[2022-02-24] MEDS: PAMIDRONATE DISODIUM 30 MG in DEXTROSE 5% IN WATER 500 ML 127.5 MG IVPB (20:20)
[2022-02-24] MEDS: SODIUM ZIRCONIUM CYCLOSILICATE 10 GM POWD.PACK 20 GM PO (20:23)
[2022-02-24 20:24] LABS: Appearance Urine Clear (Clear); Bilirubin Urine Negative (Negative); Blood Urine Negative (Negative); Color Urine Yellow (Yellow); Glucose Urine UA Negative (Negative); Ketones Urine Negative (Negative); Leukocyte Esterase Ur Negative LEU/UL (Negative); Nitrate Urine Negative (Negative); Protein Urine Negative (Negative); Urobilinogen Urine 0.2 mg/dL (<2.0)
[2022-02-24 20:25] LABS: Add Urine Microscopic? NO
[2022-02-24 20:33] LABS: Creatinine Urine 76.6 mg/dL; Total Protein Urine Random 21 mg/dL; Ur Ttl Prot Creatinine Ratio 0.27 mg/mg (0-0.20)
[2022-02-24 20:34] LABS: Sodium Urine Random 85 meq/L; Urea Random Urine 470 MG/DL
[2022-02-24 21:16] LABS: Glucose Point of Care 146 mg/dl (65-105)
[2022-02-24 22:28] LABS: Iron 58 ug/dL (49-181)
[2022-02-24] MEDS: METOPROLOL TARTRATE 50 MG TAB PO (22:32)
[2022-02-24] MEDS: LATANOPROST 0.005% OP SOLN 2.5 ML BTL 1 DROP EACH EYE (22:32)
[2022-02-24] MEDS: INSULIN GLARGINE (*BKC) 100 UNITS/ML 60 UNITS SUB-Q (22:37)
[2022-02-24 23:00] LABS: Percent Iron Saturation 21 % (20-50)
[2022-02-25] VITALS (11 sets, daily range): BP systolic 108–126; BP diastolic 55–90; PULSE 69–94; RESP 12–20; TEMP 36.4–37; O2SAT 95–100
[2022-02-25 05:48] LABS: Alanine Aminotransferase 18 U/L (6-50); Albumin Level 4.1 g/dL (3.5-5.1); Alkaline Phosphatase 64 U/L (38-126); Anion Gap 12 mmol/L (8-16); Aspartate Amino Transferase 14 U/L (17-59); Bilirubin,Total 0.8 mg/dL (0.2-1.3); Blood Urea Nitrogen 39 mg/dL (9-20); Calcium 11.7 mg/dL (8.4-10.2); Carbon Dioxide 23 mmol/L (22-30); Chloride 102 mmol/L (98-107); Estimated CRCL calculation 27 ml/min; Estimated Glomerular Filt Rate 24; Glucose 109 mg/dL (65-110); Potassium 4.7 mmol/L (3.4-5.0); Sodium 137 mmol/L (137-145)
[2022-02-25 05:57] LABS: Hematocrit 24.3 % (42.0-52.0); Hemoglobin 7.6 g/dL (14.0-18.0); Immature Platelet Fraction Pct 3.4 % (0.9-11.2); Mean Corpuscular HGB Conc 31.3 g/dl (32-36); Mean Corpuscular Volume 73.6 fl (80-100); Mean Platelet Volume 10.8 fl (7.4-10.4); Platelet Count Result 194 k/mm3 (150-375); Red Cell Distribution Width 22.4 % (11.5-14.5); White Blood Count 5.8 K/mm3 (4.5-10.0)
[2022-02-25 06:42] LABS: Thyroid Stimulating Hormone Reflex 0.951 uIU/mL (0.465-4.68)
[2022-02-25 06:45] LABS: Hemoglobin A1C 6.8 % (<5.7)
[2022-02-25] MEDS: SODIUM CHLORIDE 0.9% IV 1,000 ML 125 ML IV CONT ×2 (07:10→17:21)
--- NOTE | 2022-02-25 08:05 | PM.PNNEP ---
Progress Note: A&P Assessment and Plan (1) Acute on chronic kidney failure: Qualifiers: Acute renal failure type: unspecified Chronic kidney disease stage: stage 4 (severe) Qualified Code(s): N17.9 - Acute kidney failure, unspecified; N18.4 - Chronic kidney disease, stage 4 (severe) Code(s): N17.9 - Acute kidney failure, unspecified; N18.9 - Chronic kidney disease, unspecified Status: Acute Assessment and Plan: The patient seems to have chronic kidney disease. Renal ultrasound is ordered. UA is bland. His urine protein is around 270. Serology and immuno fix are pending We will check for records from his primary care physician. The chronic kidney disease could be from hypertension or diabetes. This depends on his proteinuria. The patient also has a component of acute kidney injury. Urine electrolytes are non pre renal. Fractional excretion of urea is above 35. Renal ultrasound is pending UA is bland CK is only 193 The patient could have a component of pre renal azotemia. The hypercalcemia acts like furosemide. The patient has lytic lesion and there is suspicion for multiple myeloma. Bone marrow biopsy is being done today. This can of course involved the kidneys as well. Will check a renal ultrasound to rule out obstruction. Glomerulonephritis is unlikely with the bland urine sediment. I talked with the oncologist is going to give him pamidronate and possibly rasburicase. She is considering tumor lysis syndrome. The patient is getting IV fluids. Intake/output has not been recorded overnight but his 24hour urine shows 1700cc of urine since 9:00 p.m. last night. So he is making plenty of urine. He is getting IV fluids at 125 His creatinine has come down to 3.1. (2) Lytic bone lesion of hip: Code(s): M89.8X5 - Other specified disorders of bone, thigh Status: Acute Assessment and Plan: Oncology is on the case. Suspicion for multiple myeloma. (3) Diabetes type 2, controlled: Code(s): E11.9 - Type 2 diabetes mellitus without complications Status: Acute Assessment and Plan: On Accu-Cheks and sliding-scale insulin (4) Hypertension: Code(s): I10 - Essential (primary) hypertension Status: Acute Assessment and Plan: Blood pressure is up and down with systolics ranging from 120-173. (5) Acute hyperkalemia: Code(s): E87.5 - Hyperkalemia Status: Acute Assessment and Plan: Potassium is down to normal today. (6) Tumor lysis syndrome: Code(s): E88.3 - Tumor lysis syndrome Status: Acute Assessment and Plan: The patient is making lots of urine so hopefully will watch some of this out. The patient has high phosphorus levels. He is NPO right now. Will keep an eye on the phosphorus levels. He has a high uric acid level. He was placed on allopurinol by Dr. Alcantara. She suggests rasburicase. I agree with this to prevent uric acid crystallization in the kidneys. I talked with Anton the pharmacist. They do not have this in stock and will try to get it but it is a Monday. He will look in to see how long it takes to get this if he can get it at all. In the meantime continue the allopurinol. He had a high potassium yesterday. This was treated and his potassium is normal today. He has a high calcium. PTH is low. This is probably due to the alleged multiple myeloma. He received pamidronate yesterday but calcium level is still high. Will give calcitonin to bring the calcium down a little more quickly. Will continue IV fluids. Awaiting phosphorus level. (7) Anemia: Code(s): D64.9 - Anemia, unspecified Status: Acute Assessment and Plan: Hemoglobin is low. The patient has renal insufficiency but also alleged multiple myeloma which are both contributing to the anemia. Will start Epogen. TSAT is 21 and ferritin is 392. No need for iron at this point. Plan .. Subjective
[2022-02-25 08:48] LABS: Glucose Point of Care 107 mg/dl (65-105)
[2022-02-25 08:55] LABS: Phosphorus 4.8 mg/dL (2.5-4.5); Uric Acid 9.1 mg/dL (3.5-8.5)
[2022-02-25] MEDS: METOPROLOL TARTRATE 50 MG TAB PO ×2 (09:08→21:14)
[2022-02-25] MEDS: EPOETIN ALFA-EPBX 10,000 UNITS/ML VIAL 10000 UNITS SUB-Q (09:11)
[2022-02-25] MEDS: amLODIPine BESYLATE 2.5 MG TABLET PO (09:14)
[2022-02-25] MEDS: CALCITONIN SALMON INJ 400 UNITS/2 ML VIAL 520 UNITS SUB-Q ×2 (09:14→21:17)
[2022-02-25] MEDS: allopurinoL 100 MG TABLET PO ×2 (09:14→17:21)
--- NOTE | 2022-02-25 09:45 | PC.NURSE ---
To manager labor relations via bed for bone marrow biopsy.
--- NOTE | 2022-02-25 10:04 | WPDMODSED ---
Moderate Sedation Note-Pt Data Patient Data Diagnosis: pathologic fracture with lytic bone disease of unknown etiology Present Complaint: right shoulder pain, decreasing renal function Procedure to be performed/Plan: bone marrow biopsy Allergies Allergy/AdvReac Type Severity Reaction Status Date / Time No Known Allergies Allergy Unknown Uncoded 02/22/22 19:53 Home Medications Medication Instructions Recorded Confirmed Type acetaminophen 500 mg tablet 1,000 mg PO .Every 8 hours PRN 02/07/22 02/24/22 Rx (Tylenol Extra Strength) pain #60 tabs hydrocodone 5 mg-acetaminophen 325 1 tablet PO Q6H PRN pain #20 tabs 02/22/22 02/24/22 Rx mg tablet amlodipine 10 mg tablet 10 mg PO DAILY 02/24/22 02/24/22 History atorvastatin 80 mg tablet 80 mg PO HS 02/24/22 02/24/22 History insulin glargine U-300 conc 300 120 unit subcut HS 02/24/22 02/24/22 History unit/mL (3 mL) subcutaneous pen (Toujeo Max U-300 SoloStar) insulin lispro 200 unit/mL (3 mL) 45 unit subcut TID 02/24/22 02/24/22 History subcutaneous pen (Humalog KwikPen U-200 Insulin) latanoprost 0.005 % eye drops 1 drp EACH EYE HS 02/24/22 02/24/22 History lisinopril 40 mg tablet 40 mg PO DAILY 02/24/22 02/24/22 History metoprolol tartrate 50 mg tablet 50 mg PO BID 02/24/22 02/24/22 History potassium chloride 20 mEq 40 meq PO BID 02/24/22 02/24/22 History tablet,extended release(part/cryst) triamterene 75 75 tablet PO DAILY 02/24/22 02/24/22 History mg-hydrochlorothiazide 50 mg tablet Current Medications: Active Medications Hydrocodone Bitart/Acetaminophen (Hydrocodone/Acetaminophen (*Crx) 5-325 Mg Tablet) 1 tab PO Q6H PRN PRN Reason: Pain Rated 4-6 Allopurinol (Allopurinol 100 Mg Tablet) 100 mg PO BID [facility] Last Admin: 02/25/22 09:14 Dose: 100 mg Amlodipine Besylate (Amlodipine Besylate 2.5 Mg Tablet) 2.5 mg PO QAM [facility] Last Admin: 02/25/22 09:14 Dose: 2.5 mg Amlodipine Besylate (Amlodipine Besylate 5 Mg Tablet) 10 mg PO DAILY [facility] Calcitonin [place] (Calcitonin [place] Inj 400 Units/2 Ml Vial) 520 units SUB-Q Q12HR DINO Stop: 02/26/22 21:01 Last Admin: 02/25/22 09:14 Dose: 520 units Dextrose (Dextrose 50% 25 Gm/50 Ml Syringe) 12.5 gm IV PUSH PRN PRN; Protocol PRN Reason: Hypoglycemia Epoetin Jaime-epbx (Epoetin Jaime-Epbx 10,000 Units/Ml Vial) 10,000 units SUB-Q [id number] [facility] Last Admin: 02/25/22 09:11 Dose: 10,000 units Glucagon (Glucagon For Inj 1 Mg Vial) 1 mg IM PRN PRN; Protocol PRN Reason: Hypoglycemia Glucose (Glucose Oral Gel 15 Gm Of Glucse In 37.5 Gm Tube) 15 gm PO PRN PRN; Protocol PRN Reason: Hypoglycemia Sodium Chloride (Normal Saline Iv) 1,000 mls @ 125 mls/hr IV CONT .Q8H [facility] Last Infusion: 02/25/22 09:45 Dose: 0 mls/hr Dextrose (Dextrose 5% 1,000 Ml) 1,000 mls @ 100 mls/hr IVPB PRN PRN; Protocol PRN Reason: Hypoglycemia Insulin Aspart (Insulin Aspart (*Bkc) 100 Units/Ml) 3 - 6 units SUB-Q TIDWM DINO; Protocol Last Admin: 02/25/22 09:07 Dose: Not Given Insulin Glargine (Insulin Glargine (*Bkc) 100 Units/Ml) 120 units SUB-Q HS [facility] Stop: 03/27/22 20:59 Latanoprost (Latanoprost 0.005% Op Soln 2.5 Ml Btl) 1 drop EACH EYE [facility] Last Admin: 02/24/22 22:32 Dose: 1 drop Metoprolol Tartrate (Metoprolol Tartrate 50 Mg Tab) 50 mg PO Q12HR [facility] Last Admin: 02/25/22 09:08 Dose: 50 mg Sedation/Anesthesia: No previous sedation/anesthesia problems (including family history). 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
--- NOTE | 2022-02-25 10:50 | PC.NURSE ---
Returned from track laborer via bed. Family at bedside.
--- NOTE | 2022-02-25 13:04 | PM.IMPN ---
Progress Note: A&P Assessment and Plan (1) Acute on chronic kidney failure: Qualifiers: Acute renal failure type: unspecified Chronic kidney disease stage: stage 4 (severe) Qualified Code(s): N17.9 - Acute kidney failure, unspecified; N18.4 - Chronic kidney disease, stage 4 (severe) Code(s): N17.9 - Acute kidney failure, unspecified; N18.9 - Chronic kidney disease, unspecified Status: Acute Assessment and Plan: Appetite has not been great lately thus poor oral intake may be causing dehydration. Patient also has anemia, hypercalcemia, and lytic bone lesions concerning for multiple myeloma. Serum and urine protein electrophoresis ordered. Continue judicious IV fluid rehydration overnight. Nephrology and Oncology have been consulted and appreciated recommendations. (2) Hypercalcemia: Code(s): E83.52 - Hypercalcemia Status: Acute Assessment and Plan: May be some component of dehydration though concerns for myeloma as above. Continue re-hydrated He received pamidronate per oncology. Monitor chemistry daily. (3) Normocytic anemia: Code(s): D64.9 - Anemia, unspecified Status: Acute Assessment and Plan: Hematology/oncology following. Likely multifactorial from CKD and presumed cancer. Hgb 7.6. Repeat in am. Transfuse if <7 mg/dL. (4) Lytic bone lesions on xray: Code(s): M89.9 - Disorder of bone, unspecified Status: Acute Assessment and Plan: Plan is as detailed above. Bone marrow biopsy done today. Oncology following. Uric acid 9.1 and patient started on allopurinol by oncology. 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 Initiate sliding scale insulin, Accu-Cheks, and hypoglycemic protocol. A1c 6.8%. (6) Hypertension: Code(s): I10 - Essential (primary) hypertension Status: Acute Assessment and Plan: Continue amlodipine and metoprolol. Lisinopril and diuretic on hold due to worsening renal function. Plan CODE STATUS: FULL CODE Disposition: home Time Spent With Patient Time with patient: 15 - 25 minutes Subjective Date/time seen: 02/25/22 13:04 Interval history: patient is a 71-year-old male with hypertension, dyslipidemia, type 2 diabetes mellitus, and chronic kidney disease who presented to the emergency department at the direction of his primary care provider for further evaluation after he was found to have abnormal labs. His renal function was acutely worsened with hyperkalemia. Patient is sitting up in the chair eating lunch. He denies new complaints. He states it was uncomfortable lying on his stomach for his bone marrow biopsy. 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 He feels like he is emptying his bladder. Review of Systems Review of Systems: All systems reviewed & are unremarkable except as noted in HPI and below Exam Narrative: General: Well-developed male sitting up in the chair in no distress. HEENT: Normocephalic. Wearing glasses. PERRL, EOMI. Conjunctivae anicteric. Hearing grossly normal Oral mucosa moist. Neck: Supple. No JVD. Respiratory: Lungs are clear to auscultation bilaterally. RR regular and unlabored. Cardiovascular: normal S1-S2 regular rate and rhythm. No murmurs, gallops or rubs. Gastrointestinal: Abdomen is soft, nontender, and nondistended with positive bowel sounds. Skin: Warm and dry. Normal color for ethnicity. Poor turgor. No open wounds. Extremities: No cyanosis, clubbing, or edema. No palpable knots or cords. Radial and pedal pulses intact. Neurological: Alert. Oriented x4. Cranial nerves 2-12 are grossly intact. No gross focal deficits to casual conversation. Psychiatric: Pleasant and cooperative. Flat affect. Judgment and insight intact.
[2022-02-25 17:20] LABS: Glucose Point of Care 156 mg/dl (65-105)
[2022-02-25 19:20] LABS: Albumin Level 4.2 g/dL (3.5-5.1); Anion Gap 12 mmol/L (8-16); Blood Urea Nitrogen 40 mg/dL (9-20); Calcium 10.5 mg/dL (8.4-10.2); Carbon Dioxide 21 mmol/L (22-30); Chloride 103 mmol/L (98-107); Estimated CRCL calculation 32 ml/min; Estimated Glomerular Filt Rate 29; Glucose 180 mg/dL (65-110); Phosphorus 3.9 mg/dL (2.5-4.5); Potassium 4.7 mmol/L (3.4-5.0); Sodium 136 mmol/L (137-145)
[2022-02-25] MEDS: HYDROcodone/acetaminophen (*CRX) 5-325 MG TABLET 1 TAB PO (19:20)
[2022-02-25 19:31] LABS: Immunoglobulin G 793 mg/dL (700-1600)
[2022-02-25 19:44] LABS: Immunoglobulin A < 40 mg/dL (70-400); Immunoglobulin M < 25 mg/dL (40-230)
[2022-02-25] MEDS: INSULIN GLARGINE (*BKC) 100 UNITS/ML 120 UNITS SUB-Q (21:11)
[2022-02-25] MEDS: LATANOPROST 0.005% OP SOLN 2.5 ML BTL 1 DROP EACH EYE (21:11)
[2022-02-25 21:31] LABS: Glucose Point of Care 176 mg/dl (65-105)
[2022-02-26] VITALS (11 sets, daily range): BP systolic 114–132; BP diastolic 50–87; PULSE 77–100; RESP 12–20; TEMP 36.6–37; O2SAT 97–99
[2022-02-26] MEDS: HYDROcodone/acetaminophen (*CRX) 5-325 MG TABLET 1 TAB PO ×4 (05:09→22:26)
[2022-02-26 05:31] LABS: Hematocrit 26.5 % (42.0-52.0); Hemoglobin 8.4 g/dL (14.0-18.0); Immature Platelet Fraction Pct 2.6 % (0.9-11.2); Mean Corpuscular HGB Conc 31.7 g/dl (32-36); Mean Corpuscular Hemoglobin 23.5 pg (26-34); Mean Corpuscular Volume 74.2 fl (80-100); Mean Platelet Volume 10.4 fl (7.4-10.4); Platelet Count Result 212 k/mm3 (150-375); Red Blood Count 3.57 M/mm3 (4.6-6.20); Red Cell Distribution Width 22.6 % (11.5-14.5); White Blood Count 5.8 K/mm3 (4.5-10.0)
[2022-02-26 05:37] LABS: Albumin Level 4.6 g/dL (3.5-5.1); Anion Gap 10 mmol/L (8-16); Blood Urea Nitrogen 33 mg/dL (9-20); Calcium 9.9 mg/dL (8.4-10.2); Carbon Dioxide 26 mmol/L (22-30); Chloride 104 mmol/L (98-107); Estimated CRCL calculation 35 ml/min; Estimated Glomerular Filt Rate 32; Glucose 95 mg/dL (65-110); Magnesium 1.8 mg/dL (1.6-2.3); Phosphorus 3.4 mg/dL (2.5-4.5); Potassium 4.5 mmol/L (3.4-5.0); Sodium 140 mmol/L (137-145); Uric Acid 8.3 mg/dL (3.5-8.5)
--- NOTE | 2022-02-26 08:29 | PM.PNNEP ---
Progress Note: A&P Assessment and Plan (1) Acute on chronic kidney failure: Qualifiers: Acute renal failure type: unspecified Chronic kidney disease stage: stage 4 (severe) Qualified Code(s): N17.9 - Acute kidney failure, unspecified; N18.4 - Chronic kidney disease, stage 4 (severe) Code(s): N17.9 - Acute kidney failure, unspecified; N18.9 - Chronic kidney disease, unspecified Status: Acute Assessment and Plan: The patient may or may not have chronic kidney disease. Renal ultrasound shows normal size kidneys with fairly well preserved corticomedullary differentiation. UA is bland. His urine protein is around 270. Serology and immuno fix are pending We will check for records from his primary care physician. The chronic kidney disease, if present, could be from hypertension or diabetes. He does not have an overwhelming amount of proteinuria so it is more likely from the hypertension and the diabetes. The patient also has a component of acute kidney injury. Urine electrolytes are non pre renal. Fractional excretion of urea is above 35. Renal ultrasound is as above UA is bland CK is only 193 The patient could have a component of pre renal azotemia. The hypercalcemia acts like furosemide. Bone marrow biopsy is pending The patient is getting IV fluids. Intake/output shows 3400 in and 3800 out. Will increase IV fluids to get I's and O's positive. He is getting IV fluids at 125. Increased to 175 His creatinine has come down to 2.4 (2) Lytic bone lesion of hip: Code(s): M89.8X5 - Other specified disorders of bone, thigh Status: Acute Assessment and Plan: Oncology is on the case. Suspicion for multiple myeloma. Bone marrow biopsy done yesterday (3) Diabetes type 2, controlled: Code(s): E11.9 - Type 2 diabetes mellitus without complications Status: Acute Assessment and Plan: On Accu-Cheks and sliding-scale insulin (4) Hypertension: Code(s): I10 - Essential (primary) hypertension Status: Acute Assessment and Plan: Blood pressure is up and down with systolics ranging from 120-173. (5) Acute hyperkalemia: Code(s): E87.5 - Hyperkalemia Status: Acute Assessment and Plan: Potassium is down to normal (6) Tumor lysis syndrome: Code(s): E88.3 - Tumor lysis syndrome Status: Acute Assessment and Plan: The patient is making lots of urine so hopefully will wash some of this out. Phosphorus levels have come down to normal. He has a high uric acid level. He was placed on allopurinol by Dr. Alcantara. His uric acid level has come down to 8.3. Pharmacy is unable to get hold of rasburicase Potassium is normal Calcium is normal Will continue IV fluids. Awaiting phosphorus level. (7) Anemia: Code(s): D64.9 - Anemia, unspecified Status: Acute Assessment and Plan: Hemoglobin is low. The patient has renal insufficiency but also alleged multiple myeloma which are both contributing to the anemia. On Epogen. Plan .. Subjective Date/time seen: 02/26/22 08:29 Interval history: Willam is feeling a little bit better. He ate some dinner last night and is hungry for breakfast this morning. He had his bone marrow biopsy yesterday Exam Narrative: WDWN in NAD skin no rash or subcu nodule head ncat lungs clear cor reg no rub or gallop abd BS+ nontender and soft ext no edema. Objective Data Vital Signs Vital Signs: Vital Signs - 24 hr 02/25/22 09:08 02/25/22 09:00 02/25/22 12:03 Temperature Pulse Rate 91 86 Respiratory Rate Blood Pressure Pulse Oximetry Oxygen Delivery Room Air 02/25/22 14:22 02/25/22 16:00 02/25/22 20:03 Temperature 36.4 C L 36.5 C Pulse Rate 91 91 93 Respiratory Rate 16 20 Blood Pressure 108/55 L 119/90 Pulse Oximetry 95 98 Oxygen Delivery 02/25/22 21:14 02/25/22 20:00 02/26/22 00:00 [place]
[2022-02-26 08:41] LABS: Glucose Point of Care 81 mg/dl (65-105)
[2022-02-26] MEDS: SODIUM CHLORIDE 0.9% IV 1,000 ML 125 ML IV CONT ×3 (09:07→13:59)
[2022-02-26] MEDS: allopurinoL 100 MG TABLET PO ×2 (09:09→16:38)
[2022-02-26] MEDS: METOPROLOL TARTRATE 50 MG TAB PO ×2 (09:09→20:02)
[2022-02-26] MEDS: CALCITONIN SALMON INJ 400 UNITS/2 ML VIAL 520 UNITS SUB-Q ×2 (09:09→20:01)
[2022-02-26] MEDS: amLODIPine BESYLATE 2.5 MG TABLET PO (09:09)
[2022-02-26 12:12] LABS: Glucose Point of Care 102 mg/dl (65-105)
--- NOTE | 2022-02-26 12:12 | PM.IMPN ---
Progress Note: A&P Assessment and Plan (1) Acute on chronic kidney failure: Qualifiers: Acute renal failure type: unspecified Chronic kidney disease stage: stage 4 (severe) Qualified Code(s): N17.9 - Acute kidney failure, unspecified; N18.4 - Chronic kidney disease, stage 4 (severe) Code(s): N17.9 - Acute kidney failure, unspecified; N18.9 - Chronic kidney disease, unspecified Status: Acute Assessment and Plan: Appetite has not been great lately thus poor oral intake may be causing dehydration. Patient also has anemia, hypercalcemia, and lytic bone lesions concerning for multiple myeloma. Serum and urine protein electrophoresis ordered. Continue judicious IV fluid rehydration overnight. Nephrology and Oncology have been consulted and appreciated recommendations. 02/26/2022 interval history: Patient is 71 y/o AA male with presented with hyperkalemia, hypercalcemia, with lytic bone lesion and pathological fracture of acromion and Alfonso with hx of CKD concerning for multiple myeloma, seen by outsole rounder and work up is in progress and pending, seen by vice squad police officer had b/l renal US showed b/l cysts, suspect CKD due to htn and/ or diabetes, will review primray care record, patient c/o pain in right shoulder which is control with pain medication, his hyperkalemia, hypercalcimia and Scr have improved with hydration and clinically he is stable, will continue to monitor and CPM, his is present in the room and answered all questions, (2) Hypercalcemia: Code(s): E83.52 - Hypercalcemia Status: Acute Assessment and Plan: May be some component of dehydration though concerns for myeloma as above. Continue re-hydrated He received pamidronate per oncology. Monitor chemistry daily. (3) Normocytic anemia: Code(s): D64.9 - Anemia, unspecified Status: Acute Assessment and Plan: Hematology/oncology following. Likely multifactorial from CKD and presumed cancer. Hgb 7.6. Repeat in am. Transfuse if <7 mg/dL. (4) Lytic bone lesions on xray: Code(s): M89.9 - Disorder of bone, unspecified Status: Acute Assessment and Plan: Plan is as detailed above. Bone marrow biopsy done today. Oncology following. Uric acid 9.1 and patient started on allopurinol by oncology. (5) Insulin dependent type 2 diabetes mellitus: Code(s): E11.9 - Type 2 diabetes mellitus without complications; Z79.4 - shelter (current) use of insulin Status: Acute Assessment and Plan: Continue basal insulin. Initiate sliding scale insulin, Accu-Cheks, and hypoglycemic protocol. A1c 6.8%. (6) Hypertension: Code(s): I10 - Essential (primary) hypertension Status: Acute Assessment and Plan: Continue amlodipine and metoprolol. Lisinopril and diuretic on hold due to worsening renal function. Plan CODE STATUS: FULL CODE Disposition: home Subjective Date/time seen: 02/26/22 12:12 02/26/2022 interval history: Patient is 71 y/o AA male with presented with hyperkalemia, hypercalcemia, with lytic bone lesion and pathological fracture of acromion and Alfonso with hx of CKD concerning for multiple myeloma, seen by outsole rounder and work up is in progress and pending, seen by vice squad police officer had b/l renal US showed b/l cysts, suspect CKD due to htn and/ or diabetes, will review primray care record, patient c/o pain in right shoulder which is control with pain medication, his hyperkalemia, hypercalcimia and Scr have improved with hydration and clinically he is stable, will continue to monitor and CPM, his is present in the room and answered all questions, Review of Systems Review of Systems: All systems reviewed & are unremarkable except as noted in HPI and below Exam Narrative: morbidly obese Patient is comfortable, NAD HEENT: eyes are clear and none icteric LUNGS: normal respiratory effort ABD: distended Lower extremities: no edema
[2022-02-26 17:11] LABS: Glucose Point of Care 81 mg/dl (65-105)
[2022-02-26] MEDS: SODIUM CHLORIDE 0.9% IV 1,000 ML 175 ML IV CONT (20:00)
[2022-02-26] MEDS: LATANOPROST 0.005% OP SOLN 2.5 ML BTL 1 DROP EACH EYE (20:01)
[2022-02-26] MEDS: INSULIN GLARGINE (*BKC) 100 UNITS/ML 120 UNITS SUB-Q (20:15)
[2022-02-26 21:06] LABS: Glucose Point of Care 98 mg/dl (65-105)
[2022-02-27] VITALS (10 sets, daily range): BP systolic 121–139; BP diastolic 44–60; PULSE 70–88; RESP 12–18; TEMP 36.4–36.9; O2SAT 97–99
--- NOTE | 2022-02-27 00:19 | PCRCNOTE ---
Pt refusing hospital unit use on 02/26 PM. Pt stated they are too uncomfortable in his room to sleep therefore does not want to wear CPAP. RT advised pt to call if he changed his mind. Unit on standby at bedside.
[2022-02-27] MEDS: SODIUM CHLORIDE 0.9% IV 1,000 ML 175 ML IV CONT ×2 (01:19→05:46)
[2022-02-27] MEDS: HYDROcodone/acetaminophen (*CRX) 5-325 MG TABLET 1 TAB PO ×2 (04:40→17:47)
[2022-02-27 05:13] LABS: Hematocrit 23.9 % (42.0-52.0); Hemoglobin 7.5 g/dL (14.0-18.0); Immature Platelet Fraction Pct 2.7 % (0.9-11.2); Mean Corpuscular HGB Conc 31.4 g/dl (32-36); Mean Corpuscular Hemoglobin 23.1 pg (26-34); Mean Corpuscular Volume 73.8 fl (80-100); Mean Platelet Volume 9.7 fl (7.4-10.4); Platelet Count Result 198 k/mm3 (150-375); Red Blood Count 3.24 M/mm3 (4.6-6.20); Red Cell Distribution Width 22.5 % (11.5-14.5); White Blood Count 6.7 K/mm3 (4.5-10.0)
[2022-02-27 05:53] LABS: Anion Gap 10 mmol/L (8-16); Blood Urea Nitrogen 22 mg/dL (9-20); Calcium 8.7 mg/dL (8.4-10.2); Carbon Dioxide 24 mmol/L (22-30); Chloride 106 mmol/L (98-107); Estimated CRCL calculation 42 ml/min; Estimated Glomerular Filt Rate 40; Glucose 59 mg/dL (65-110); Phosphorus 2.9 mg/dL (2.5-4.5); Potassium 3.8 mmol/L (3.4-5.0); Sodium 140 mmol/L (137-145); Uric Acid 7.2 mg/dL (3.5-8.5)
[2022-02-27 06:20] LABS: Glucose Point of Care 84 mg/dl (65-105)
[2022-02-27 08:41] LABS: Glucose Point of Care 154 mg/dl (65-105)
[2022-02-27] MEDS: SODIUM CHLORIDE 0.9% IV 1,000 ML 150 ML IV CONT ×3 (08:45→20:12)
[2022-02-27] MEDS: allopurinoL 100 MG TABLET PO ×2 (08:45→17:45)
[2022-02-27] MEDS: amLODIPine BESYLATE 2.5 MG TABLET PO (08:45)
[2022-02-27] MEDS: METOPROLOL TARTRATE 50 MG TAB PO ×2 (08:45→20:36)
--- NOTE | 2022-02-27 09:43 | P.PNIM_ITS ---
Progress Note: A&P Assessment and Plan (1) Acute on chronic kidney failure: Qualifiers: Acute renal failure type: unspecified Chronic kidney disease stage: stage 4 (severe) Qualified Code(s): N17.9 - Acute kidney failure, unspecified; N18.4 - Chronic kidney disease, stage 4 (severe) Code(s): N17.9 - Acute kidney failure, unspecified; N18.9 - Chronic kidney disease, unspecified Status: Acute Assessment and Plan: Appetite poor prior to admission and may have contributed to dehydration. Patient also has anemia, hypercalcemia, and lytic bone lesions concerning for multiple myeloma. Diabetes and hypertension may be contributing factors for CKD. * Serum and urine protein electrophoresis ordered. * Continue IV fluid rehydration- NS@150 mL/hour. * Nephrology and Oncology have been consulted and appreciated recommendations. * Monitor strict I/O and renal function panel daily * hyperkalemia, hypercalcimia and Scr have improved with hydration * Uric acid >9 on admission, allopurinol started by Oncology. Rasbirucase not available and not administered. (2) Hypercalcemia: Code(s): E83.52 - Hypercalcemia Status: Acute Assessment and Plan: May be some component of dehydration though concerns for myeloma as above. * Continue re-hydrated * He received pamidronate per oncology. * 4 doses calcitonin salmon SQ 02/25-02/26 * Calcium improving and within normal limits. (3) Normocytic anemia: Code(s): D64.9 - Anemia, unspecified Status: Acute Assessment and Plan: Hematology/oncology following. Likely multifactorial from CKD and presumed cancer. * Hgb 8.5 to 7.6 to 8.4 to 7.5. * No s/s bleeding. * Patient started on epogen * Transfuse if <7 mg/dL. (4) Lytic bone lesions on xray: Code(s): M89.9 - Disorder of bone, unspecified Status: Acute Assessment and Plan: * Plan is as detailed above. Bone marrow biopsy done 02/25 and pathology pending. * Oncology consulted and patient to follow up outpatient. * right acromion pathologic fracture 02/22/22. Continue RUE sling. (5) Insulin dependent type 2 diabetes mellitus: Code(s): E11.9 - Type 2 diabetes mellitus without complications; Z79.4 - long term care administrator (current) use of insulin Status: Acute Assessment and Plan: Insulin dependent diabetes mellitus. A1c 6.8%. * Continue sliding scale insulin, Accu-Cheks, and hypoglycemic protocol. * Glucose 40 overnight. Patient did not eat dinner or snack. * Decrease basal insulin to 110 units at HS. * Encouraged HS snack. (6) Hypertension: Code(s): I10 - Essential (primary) hypertension Status: Acute Assessment and Plan: Continue amlodipine and metoprolol. Lisinopril and diuretic on hold due acute worsening renal function. Plan CODE STATUS: FULL CODE Disposition: home DVT prophylaxis: High risk. 2-day post bone marrow biopsy, initiate pharmacologic prophylaxis. Time Spent With Patient Time with patient: 15 - 25 minutes Subjective Date/time seen: 02/27/22 09:43 Interval history: He denies new complaints or overnight events. He slept well last night. He does have some pain in his right shoulder that is mild and aching. No paresthesia, weakness or paralysis. Review of Systems Review of Systems: All systems reviewed & are unremarkable except as noted in HPI and below Exam Narrative: General:?No acute distress HEENT:?PERRL, EOMI. C
--- NOTE | 2022-02-27 09:43 | PM.IMPN ---
Progress Note: A&P Assessment and Plan (1) Acute on chronic kidney failure: Qualifiers: Acute renal failure type: unspecified Chronic kidney disease stage: stage 4 (severe) Qualified Code(s): N17.9 - Acute kidney failure, unspecified; N18.4 - Chronic kidney disease, stage 4 (severe) Code(s): N17.9 - Acute kidney failure, unspecified; N18.9 - Chronic kidney disease, unspecified Status: Acute Assessment and Plan: Appetite poor prior to admission and may have contributed to dehydration. Patient also has anemia, hypercalcemia, and lytic bone lesions concerning for multiple myeloma. Diabetes and hypertension may be contributing factors for CKD. Serum and urine protein electrophoresis ordered. Continue IV fluid rehydration- NS@150 mL/hour. Nephrology and Oncology have been consulted and appreciated recommendations. Monitor strict I/O and renal function panel daily hyperkalemia, hypercalcimia and Scr have improved with hydration Uric acid >9 on admission, allopurinol started by Oncology. Rasbirucase not available and not administered. (2) Hypercalcemia: Code(s): E83.52 - Hypercalcemia Status: Acute Assessment and Plan: May be some component of dehydration though concerns for myeloma as above. Continue re-hydrated He received pamidronate per oncology. 4 doses calcitonin salmon SQ 02/25-02/26 Calcium improving and within normal limits. (3) Normocytic anemia: Code(s): D64.9 - Anemia, unspecified Status: Acute Assessment and Plan: Hematology/oncology following. Likely multifactorial from CKD and presumed cancer. Hgb 8.5 to 7.6 to 8.4 to 7.5. No s/s bleeding. Patient started on epogen Transfuse if <7 mg/dL. (4) Lytic bone lesions on xray: Code(s): M89.9 - Disorder of bone, unspecified Status: Acute Assessment and Plan: Plan is as detailed above. Bone marrow biopsy done 02/25 and pathology pending. Oncology consulted and patient to follow up outpatient. right acromion pathologic fracture 02/22/22. Continue RUE sling. (5) Insulin dependent type 2 diabetes mellitus: Code(s): E11.9 - Type 2 diabetes mellitus without complications; Z79.4 - [facility] (current) use of insulin Status: Acute Assessment and Plan: Insulin dependent diabetes mellitus. A1c 6.8%. Continue sliding scale insulin, Accu-Cheks, and hypoglycemic protocol. Glucose 40 overnight. Patient did not eat dinner or snack. Decrease basal insulin to 110 units at HS. Encouraged HS snack. (6) Hypertension: Code(s): I10 - Essential (primary) hypertension Status: Acute Assessment and Plan: Continue amlodipine and metoprolol. Lisinopril and diuretic on hold due acute worsening renal function. Plan CODE STATUS: FULL CODE Disposition: home DVT prophylaxis: High risk. 2-day post bone marrow biopsy, initiate pharmacologic prophylaxis. Time Spent With Patient Time with patient: 15 - 25 minutes Subjective Date/time seen: 02/27/22 09:43 Interval history: He denies new complaints or overnight events. He slept well last night. He does have some pain in his right shoulder that is mild and aching. No paresthesia, weakness or paralysis. Review of Systems Review of Systems: All systems reviewed & are unremarkable except as noted in HPI and below Exam Narrative: General:?No acute distress HEENT:?PERRL, EOMI. Conjunctivae anicteric. Hearing grossly normal. mucous membranes moist. Neck:??No JVD. Respiratory:?Lungs are clear to auscultation bilaterally. RR regular and unlabored. Cardiovascular:?normal S1-S2 regular rate and rhythm. No murmurs, gallops or rubs. Gastrointestinal:??Abdomen is soft,obese, nontender with positive bowel sounds. Skin:??Warm and dry.? Normal color for ethnicity. Fair turgor. No open wounds. Extremities:??No cyanosis, clubbing, or edema. Moves all 4 extremities equally. Radi
--- NOTE | 2022-02-27 10:20 | PC.NURSE ---
spoke with Germaine Horne in [facility], she stated I can take this patient off of telemetry at this time .
--- NOTE | 2022-02-27 10:37 | PM.PNNEP ---
Progress Note: A&P Assessment and Plan (1) Acute on chronic kidney failure: Qualifiers: Acute renal failure type: unspecified Chronic kidney disease stage: stage 4 (severe) Qualified Code(s): N17.9 - Acute kidney failure, unspecified; N18.4 - Chronic kidney disease, stage 4 (severe) Code(s): N17.9 - Acute kidney failure, unspecified; N18.9 - Chronic kidney disease, unspecified Status: Acute Assessment and Plan: The patient may or may not have chronic kidney disease. Renal ultrasound shows normal size kidneys with fairly well preserved corticomedullary differentiation. UA is bland. His urine protein is around 270. Serology and immuno fix are pending We will check for records from his primary care physician. The chronic kidney disease, if present, could be from hypertension or diabetes. He does not have an overwhelming amount of proteinuria so it is more likely from the hypertension and the diabetes. The patient also has a component of acute kidney injury. Urine electrolytes are non pre renal. Fractional excretion of urea is above 35. Renal ultrasound is as above UA is bland CK is only 193 Acute kidney injury could be from dehydration, hypercalcemia, uric acid deposits, or myeloma. The patient is getting IV fluids. Intake/output shows net positive intake. He is getting IV fluids at 175. Will reduce to 150. His creatinine has come down to 2.0 continue IV fluids. (2) Lytic bone lesion of hip: Code(s): M89.8X5 - Other specified disorders of bone, thigh Status: Acute Assessment and Plan: Oncology is on the case. Suspicion for multiple myeloma. Bone marrow biopsy done yesterday (3) Diabetes type 2, controlled: Code(s): E11.9 - Type 2 diabetes mellitus without complications Status: Acute Assessment and Plan: On Accu-Cheks and sliding-scale insulin (4) Hypertension: Code(s): I10 - Essential (primary) hypertension Status: Acute Assessment and Plan: Blood pressure is up and down with systolics ranging from 120-173. (5) Acute hyperkalemia: Code(s): E87.5 - Hyperkalemia Status: Acute Assessment and Plan: Potassium is down to normal (6) Tumor lysis syndrome: Code(s): E88.3 - Tumor lysis syndrome Status: Acute Assessment and Plan: The patient is making lots of urine so hopefully will wash some of this out. Phosphorus levels have come down to normal. Uric acid is improving every day. Now down to 7.2. I will leave the question of rasburicase to the oncologist. His uric acid is improving with renal function so I think it less urgent. The hospitals having trouble getting the rasburicase anyway. Potassium is normal Calcium is normal Will continue IV fluids. (7) Anemia: Code(s): D64.9 - Anemia, unspecified Status: Acute Assessment and Plan: Hemoglobin is low. It is bouncing around between 7 and 9. Iron studies are okay Patient has renal insufficiency but also alleged multiple myeloma which are both contributing to the anemia. On Epogen. Plan .. Subjective Date/time seen: 02/27/22 10:37 Interval history: Willam is lying in bed watching TV. No chest pain or shortness of breath Exam Narrative: WDWN in NAD skin no rash or subcu nodule head ncat lungs clear bilaterally cor reg no rub or gallop abd BS+ nontender and soft ext no edema or subcu not Objective Data Vital Signs Vital Signs: Vital Signs - 24 hr 02/26/22 14:00 02/26/22 12:00 02/26/22 16:00 Temperature 37.0 C Pulse Rate 77 98 83 Respiratory Rate 15 Blood Pressure 114/50 L Pulse Oximetry 97 Oxygen Delivery 02/26/22 19:34 02/26/22 20:02 02/26/22 20:00 Temperature 37.0 C Pulse Rate 77 79 86 Respiratory Rate 20 Blood Pressure 132/51 L Pulse Oximetry 99 Oxygen Delivery 02/27/22 00:00 02/27/22 04:00 02/27/22 05:05 Temper
[2022-02-27 12:14] LABS: Glucose Point of Care 162 mg/dl (65-105)
[2022-02-27 17:26] LABS: Glucose Point of Care 126 mg/dl (65-105)
[2022-02-27 20:51] LABS: Glucose Point of Care 169 mg/dl (65-105)
[2022-02-27] MEDS: LATANOPROST 0.005% OP SOLN 2.5 ML BTL 1 DROP EACH EYE (20:56)
[2022-02-27] MEDS: HEPARIN SODIUM 5,000 UNITS/ML VIAL 5000 UNITS SUB-Q (20:56)
[2022-02-27] MEDS: INSULIN GLARGINE (*BKC) 100 UNITS/ML 60 UNITS SUB-Q (21:29)
[2022-02-28] MEDS: SODIUM CHLORIDE 0.9% IV 1,000 ML 150 ML IV CONT ×2 (03:10→10:53)
[2022-02-28 05:09] VITALS: BP 135/52; PULSE 80; RESP 16; TEMP 36.6; O2SAT 98
[2022-02-28] MEDS: HYDROcodone/acetaminophen (*CRX) 5-325 MG TABLET 1 TAB PO ×3 (05:25→21:36)
[2022-02-28] MEDS: HEPARIN SODIUM 5,000 UNITS/ML VIAL 5000 UNITS SUB-Q ×3 (05:26→21:36)
[2022-02-28 05:57] LABS: Hematocrit 25.8 % (42.0-52.0); Hemoglobin 8.2 g/dL (14.0-18.0); Immature Platelet Fraction Pct 3.2 % (0.9-11.2); Mean Corpuscular HGB Conc 31.8 g/dl (32-36); Mean Corpuscular Hemoglobin 23.3 pg (26-34); Mean Corpuscular Volume 73.3 fl (80-100); Platelet Count Result 215 k/mm3 (150-375); Red Blood Count 3.52 M/mm3 (4.6-6.20); Red Cell Distribution Width 22.4 % (11.5-14.5); White Blood Count 7.2 K/mm3 (4.5-10.0)
[2022-02-28 06:08] LABS: Albumin Level 4.2 g/dL (3.5-5.1); Anion Gap 11 mmol/L (8-16); Blood Urea Nitrogen 17 mg/dL (9-20); Calcium 8.8 mg/dL (8.4-10.2); Carbon Dioxide 24 mmol/L (22-30); Chloride 105 mmol/L (98-107); Estimated CRCL calculation 44 ml/min; Estimated Glomerular Filt Rate 42; Glucose 124 mg/dL (65-110); Phosphorus 2.3 mg/dL (2.5-4.5); Potassium 3.8 mmol/L (3.4-5.0); Sodium 140 mmol/L (137-145)
[2022-02-28 08:26] LABS: Glucose Point of Care 87 mg/dl (65-105)
[2022-02-28 08:27] VITALS: PULSE 88
[2022-02-28] MEDS: METOPROLOL TARTRATE 50 MG TAB PO ×2 (08:27→20:34)
[2022-02-28] MEDS: amLODIPine BESYLATE 2.5 MG TABLET PO ×2 (08:27→13:53)
[2022-02-28] MEDS: allopurinoL 100 MG TABLET PO ×2 (08:27→17:12)
[2022-02-28] MEDS: EPOETIN ALFA-EPBX 10,000 UNITS/ML VIAL 10000 UNITS SUB-Q (08:28)
--- NOTE | 2022-02-28 09:20 | P.PNIM_ITS ---
Progress Note: A&P Assessment and Plan (1) Acute on chronic kidney failure: Qualifiers: Acute renal failure type: unspecified Chronic kidney disease stage: stage 4 (severe) Qualified Code(s): N17.9 - Acute kidney failure, unspecified; N18.4 - Chronic kidney disease, stage 4 (severe) Code(s): N17.9 - Acute kidney failure, unspecified; N18.9 - Chronic kidney disease, unspecified Status: Acute Assessment and Plan: Appetite poor prior to admission and may have contributed to dehydration. Patient also has anemia, hypercalcemia, and lytic bone lesions concerning for multiple myeloma. Diabetes and hypertension may be contributing factors for CKD. * Serum and urine protein electrophoresis pending * Continue IV fluid rehydration- NS@150 mL/hour. Nephrology adjusting. * Nephrology and Oncology have been consulted and appreciated recommendations. * Monitor strict I/O and renal function panel daily * hyperkalemia, hypercalcimia and Scr have improved with hydration * Uric acid >9 on admission, allopurinol started by Oncology. Rasbirucase not available and not administered. Uric acid 6.3 today. (2) Hypercalcemia: Code(s): E83.52 - Hypercalcemia Status: Acute Assessment and Plan: May be some component of dehydration though concerns for myeloma as above. * Continue re-hydration * He received pamidronate per oncology. * 4 doses calcitonin salmon SQ 02/25-02/26 * Calcium within normal limits. Improved (3) Normocytic anemia: Code(s): D64.9 - Anemia, unspecified Status: Acute Assessment and Plan: Hematology/oncology following. Likely multifactorial from CKD and presumed cancer. * Hgb 8.5 to 7.6 to 8.4 to 7.5 to 8.2. * No s/s bleeding. * Patient started on epogen * Transfuse if <7 mg/dL. * Stable. (4) Lytic bone lesions on xray: Code(s): M89.9 - Disorder of bone, unspecified Status: Acute Assessment and Plan: * Plan is as detailed above. Bone marrow biopsy done 02/25 and pathology pending. * Oncology consulted and patient to follow up outpatient. * right acromion pathologic fracture 02/22/22. Continue RUE sling. * Stable (5) Insulin dependent type 2 diabetes mellitus: Code(s): E11.9 - Type 2 diabetes mellitus without complications; Z79.4 - paralegal (current) use of insulin Status: Acute Assessment and Plan: Insulin dependent diabetes mellitus. A1c 6.8%. * Continue sliding scale insulin, Accu-Cheks, and hypoglycemic protocol. * Glucose 89 to 162 mg/dL. He reports eating most of his meals. Will continue to decrease lantus - 30 units am and 60 units hs. * Encouraged HS snack. * Continue to monitor and adjusting basal-bolus insulin. (6) Hypertension: Code(s): I10 - Essential (primary) hypertension Status: Acute Assessment and Plan: BP 123/55 to 139/60. * Increase amlodipine 5 mg daily. * Continue metoprolol at home dose. * Holding Lisinopril and diuretics due to ROEL. * Continue to monitor. Plan CODE STATUS: FULL CODE Disposition: home Time Spent With Patient Time with patient: 15 - 25 minutes Subjective Date/time seen: 02/28/22 09:20 He has some pain in his chest that is intermittent, has been present for months and non-radiating. He reports the pain is worse with palpation and laying on his chest. He was told it was costochondritis by his PCP. He denies abd pain, SOB, N/V, diaphoresis, palpitations. His last BM was 2 days ago and he report concern for hemorrhoi
--- NOTE | 2022-02-28 09:20 | PM.IMPN ---
Progress Note: A&P Assessment and Plan (1) Acute on chronic kidney failure: Qualifiers: Acute renal failure type: unspecified Chronic kidney disease stage: stage 4 (severe) Qualified Code(s): N17.9 - Acute kidney failure, unspecified; N18.4 - Chronic kidney disease, stage 4 (severe) Code(s): N17.9 - Acute kidney failure, unspecified; N18.9 - Chronic kidney disease, unspecified Status: Acute Assessment and Plan: Appetite poor prior to admission and may have contributed to dehydration. Patient also has anemia, hypercalcemia, and lytic bone lesions concerning for multiple myeloma. Diabetes and hypertension may be contributing factors for CKD. Serum and urine protein electrophoresis pending Continue IV fluid rehydration- NS@150 mL/hour. Nephrology adjusting. Nephrology and Oncology have been consulted and appreciated recommendations. Monitor strict I/O and renal function panel daily hyperkalemia, hypercalcimia and Scr have improved with hydration Uric acid >9 on admission, allopurinol started by Oncology. Rasbirucase not available and not administered. Uric acid 6.3 today. (2) Hypercalcemia: Code(s): E83.52 - Hypercalcemia Status: Acute Assessment and Plan: May be some component of dehydration though concerns for myeloma as above. Continue re-hydration He received pamidronate per oncology. 4 doses calcitonin salmon SQ 02/25-02/26 Calcium within normal limits. Improved (3) Normocytic anemia: Code(s): D64.9 - Anemia, unspecified Status: Acute Assessment and Plan: Hematology/oncology following. Likely multifactorial from CKD and presumed cancer. Hgb 8.5 to 7.6 to 8.4 to 7.5 to 8.2. No s/s bleeding. Patient started on epogen Transfuse if <7 mg/dL. Stable. (4) Lytic bone lesions on xray: Code(s): M89.9 - Disorder of bone, unspecified Status: Acute Assessment and Plan: Plan is as detailed above. Bone marrow biopsy done 02/25 and pathology pending. Oncology consulted and patient to follow up outpatient. right acromion pathologic fracture 02/22/22. Continue RUE sling. Stable (5) Insulin dependent type 2 diabetes mellitus: Code(s): E11.9 - Type 2 diabetes mellitus without complications; Z79.4 - snf (current) use of insulin Status: Acute Assessment and Plan: Insulin dependent diabetes mellitus. A1c 6.8%. Continue sliding scale insulin, Accu-Cheks, and hypoglycemic protocol. Glucose 89 to 162 mg/dL. He reports eating most of his meals. Will continue to decrease lantus - 30 units am and 60 units hs. Encouraged HS snack. Continue to monitor and adjusting basal-bolus insulin. (6) Hypertension: Code(s): I10 - Essential (primary) hypertension Status: Acute Assessment and Plan: BP 123/55 to 139/60. Increase amlodipine 5 mg daily. Continue metoprolol at home dose. Holding Lisinopril and diuretics due to ROEL. Continue to monitor. Plan CODE STATUS: FULL CODE Disposition: home Time Spent With Patient Time with patient: 15 - 25 minutes Subjective Date/time seen: 02/28/22 09:20 He has some pain in his chest that is intermittent, has been present for months and non-radiating. He reports the pain is worse with palpation and laying on his chest. He was told it was costochondritis by his PCP. He denies abd pain, SOB, N/V, diaphoresis, palpitations. His last BM was 2 days ago and he report concern for hemorrhoid flare if he is constipated. Review of Systems Review of Systems: All systems reviewed & are unremarkable except as noted in HPI and below Exam Narrative: General:?No acute distress. Sitting up in the bed. HEENT:?PERRL, EOMI. Conjunctivae anicteric. Hearing grossly normal. mucous membranes moist. Neck:??No JVD. Respiratory:?Lungs are clear to auscultation bilaterally. RR regular and unlabored. Cardiovascular:?Mild chest wall te
[2022-02-28] MEDS: INSULIN GLARGINE (*BKC) 100 UNITS/ML 30 UNITS SUB-Q (09:23)
[2022-02-28] MEDS: BISACODYL 5 MG TABLET EC PO (09:23)
[2022-02-28 09:25] LABS: Uric Acid 6.3 mg/dL (3.5-8.5)
[2022-02-28 11:50] LABS: Glucose Point of Care 100 mg/dl (65-105)
[2022-02-28 12:40] VITALS: BP 123/55; PULSE 79; RESP 18; TEMP 36.3; O2SAT 99
--- NOTE | 2022-02-28 15:08 | P.PNNP_ITS ---
Progress Note: A&P Assessment and Plan (1) ROEL (acute kidney injury): Code(s): N17.9 - Acute kidney failure, unspecified Status: Acute Assessment and Plan: * acute versus acute on chronic?? 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 Status: Acute Assessment and Plan: * clinically improving with IVFs * calcium/phosphorus have normalized * uric acid trending down as well * potassium now normal * follow trend (3) Anemia: Code(s): D64.9 - Anemia, unspecified Status: Acute Assessment and Plan: * H/H low * iron studies okay * started empirically on Epogen * likely due to ROEL but concern is if mutiple myeloma playing a role as well (4) Lytic bone lesion of hip: Code(s): M89.8X5 - Other specified disorders of bone, thigh Status: Acute Assessment and Plan: * Oncology following * suspicion is for multiple myeloma * s/p bone marrow biopsy -- pathology pending (5) Hypertension: Code(s): I10 - Essential (primary) hypertension Status: Acute Assessment and Plan: * reasonable control at this time * follow trend of hemodynamics (6) Diabetes type 2, controlled: Code(s): E11.9 - Type 2 diabetes mellitus without complications Status: Acute Assessment and Plan: * follow accuchecks * on SSI Will continue to follow. Subjective Date/time seen: 02/28/22 15:08 Chart reviewed - assuming care from Dr. Lozoya; no apparent distress voiced at the time of my visit; eating and drinking reasonably well; renal function continues to improve with IVF hydration; no reported issues/events overnight or earlier this morning. Exam Narrative: General: WD/WN AA male in NAD Heart: normal S1 and S2; no rub Lungs: clear to auscultation Abdomen: soft, nontender, nondistended, positive bowel sounds Extremities: no cyanosis or clubbing; no edema Skin: warm and dry Objective Data Vital Signs Vital Signs: Vital Signs Temp Pulse Resp BP Pulse Ox O2 Del Method 02/28/22 12:40 36.3 C L 79 18 123/55 L 99 02/28/22 08:35 Room Air 02/28/22 08:27 88 02/28/22 05:09 36.6 C 80 16 135/52 L 98 02/27/22 23:45 82 12 97 Autopap 02/27/22 20:36 78 02/27/22 20:01 36.6 C 78 14 125/51 L 99 Intake/Output Intake/Output: Intake & Output 02/25/22 02/26/22 02/27/22 02/28/22 23:59 23:59 23:59 23:59 Intake Total 2830 5420 6680 3620 Output Total 3800 3550 3825 1000 Balance -970 1870 2855 2620 Meds/Results Medications: Active Medications Generic Name Dose Route Start Last Admin Trade Name Freq PRN Reason Stop Dose Admin Hyd
--- NOTE | 2022-02-28 15:08 | PM.PNNEP ---
Progress Note: A&P Assessment and Plan (1) ROEL (acute kidney injury): Code(s): N17.9 - Acute kidney failure, unspecified Status: Acute Assessment and Plan: acute versus acute on chronic?? unclear what his baseline creatinine/kidney function is prior to admission evaluation to date: urine electrolytes are non-prerenal FE-urea is > 35% renal ultrasound as above urinalysis bland CPK okay etiology due to dehydration vs hypercalcemia vs uric acid deposits vs myeloma or a combination of all(?) creatinine improving with IVF hydration attempting to obtain records from PCP regarding previous renal function will slowly wean off IVFs (2) Tumor lysis syndrome: Code(s): E88.3 - Tumor lysis syndrome Status: Acute Assessment and Plan: clinically improving with IVFs calcium/phosphorus have normalized uric acid trending down as well potassium now normal follow trend (3) Anemia: Code(s): D64.9 - Anemia, unspecified Status: Acute Assessment and Plan: H/H low iron studies okay started empirically on Epogen likely due to ROEL but concern is if mutiple myeloma playing a role as well (4) Lytic bone lesion of hip: Code(s): M89.8X5 - Other specified disorders of bone, thigh Status: Acute Assessment and Plan: Oncology following suspicion is for multiple myeloma s/p bone marrow biopsy -- pathology pending (5) Hypertension: Code(s): I10 - Essential (primary) hypertension Status: Acute Assessment and Plan: reasonable control at this time follow trend of hemodynamics (6) Diabetes type 2, controlled: Code(s): E11.9 - Type 2 diabetes mellitus without complications Status: Acute Assessment and Plan: follow accuchecks on SSI Will continue to follow. Subjective Date/time seen: 02/28/22 15:08 Chart reviewed - assuming care from Dr. Lozoya; no apparent distress voiced at the time of my visit; eating and drinking reasonably well; renal function continues to improve with IVF hydration; no reported issues/events overnight or earlier this morning. Exam Narrative: General: WD/WN AA male in NAD Heart: normal S1 and S2; no rub Lungs: clear to auscultation Abdomen: soft, nontender, nondistended, positive bowel sounds Extremities: no cyanosis or clubbing; no edema Skin: warm and dry Objective Data Vital Signs Vital Signs: Vital Signs Temp Pulse Resp BP Pulse Ox O2 Del Method 02/28/22 12:40 36.3 C L 79 18 123/55 L 99 02/28/22 08:35 Room Air 02/28/22 08:27 88 02/28/22 05:09 36.6 C 80 16 135/52 L 98 02/27/22 23:45 82 12 97 Autopap 02/27/22 20:36 78 02/27/22 20:01 36.6 C 78 14 125/51 L 99 Intake/Output Intake/Output: Intake & Output 02/25/22 02/26/22 02/27/22 02/28/22 23:59 23:59 23:59 23:59 Intake Total 2830 5420 6680 3620 Output Total 3800 3550 3825 1000 Balance -970 1870 2855 2620 Meds/Results Medications: Active Medications Generic Name Dose Route Start Last Admin Trade Name Freq PRN Reason Stop Dose Admin Hydrocodone Bitart/Acetaminophen 1 tab 02/24/22 21:46 02/28/22 16:02 Hydrocodone/Acetaminophen (*Crx) 5-325 Mg Tablet PO 1 tab Q6H PRN Administration Pain Rated 4-6 Allopurinol 100 mg 02/24/22 18:00 02/28/22 08:27 Allopurinol 100 Mg Tablet PO 100 mg BID DINO Administration Amlodipine Besylate 5 mg 03/01/22 09:00 Amlodipine Besylate 5 Mg Tablet PO QAM DINO Bisacodyl 5 mg 02/28/22 09:16 02/28/22 09:23 Bisacodyl 5 Mg Tablet Ec PO 5 mg QAM PRN Administration Constipation Dextrose 12.5 gm 02/24/22 21:44 Dextrose 50% 25 Gm/50 Ml Syringe IV PUSH PRN PRN Hypoglycemia Protocol Epoetin Jaime-epbx 10,000 units 02/25/22 09:00 02/28/22 08:28 Epoetin Jaime-Epbx 10,000 Units/Ml Vial SUB-Q 10,000 units MoWeFr@0900 [facility] Administra
[2022-02-28 16:11] LABS: Kappa\\Lambda Light Chains 1.35 (0.26-1.65); Lambda Light Chain 10.6 mg/L (5.7-26.3)
[2022-02-28 16:11] LABS: Kappa\\Lambda Light Chains 1.24 (0.26-1.65); Lambda Light Chain 11.2 mg/L (5.7-26.3)
[2022-02-28 16:58] LABS: Glucose Point of Care 145 mg/dl (65-105)
[2022-02-28] MEDS: SODIUM CHLORIDE 0.9% IV 1,000 ML 100 ML IV CONT (17:14)
[2022-02-28 19:48] VITALS: BP 128/53; PULSE 79; RESP 20; TEMP 36.3; O2SAT 99
[2022-02-28] MEDS: INSULIN GLARGINE (*BKC) 100 UNITS/ML 60 UNITS SUB-Q (20:33)
[2022-02-28 20:34] VITALS: PULSE 79
[2022-02-28] MEDS: LATANOPROST 0.005% OP SOLN 2.5 ML BTL 1 DROP EACH EYE (20:34)
[2022-02-28 21:19] LABS: Glucose Point of Care 188 mg/dl (65-105)
[2022-03-01 03:30] VITALS: BP 145/55; PULSE 81; RESP 20; TEMP 36.1; O2SAT 97
[2022-03-01] MEDS: SODIUM CHLORIDE 0.9% IV 1,000 ML 100 ML IV CONT ×2 (03:42→13:44)
[2022-03-01] MEDS: HEPARIN SODIUM 5,000 UNITS/ML VIAL 5000 UNITS SUB-Q ×3 (05:53→22:28)
[2022-03-01 06:08] LABS: Basophils Percent Auto 0.8 % (0.2-1.2); Eosinophils Absolute Auto 0.4 K/mm3 (0-0.3); Eosinophils Percent Auto 7.7 % (0-4.4); Hematocrit 23.6 % (42.0-52.0); Hemoglobin 7.4 g/dL (14.0-18.0); Immature Granulocyte Absolute 0.02 K/mm3 (0.00-0.031); Immature Granulocyte Percent A 0.4 % (0-0.5); Lymphocytes Absolute Auto 1.87 K/mm3 (0.9-3.2); Lymphocytes Percent Auto 36.1 % (18.3-44.2); Mean Corpuscular HGB Conc 31.4 g/dl (32-36); Mean Corpuscular Hemoglobin 23.3 pg (26-34); Mean Corpuscular Volume 74.2 fl (80-100); Mean Platelet Volume 10.5 fl (7.4-10.4); Monocytes Absolute Auto 0.5 K/mm3 (0.1-0.6); Monocytes Percent Auto 8.7 % (2.6-8.5); Neutrophils Absolute Auto 2.4 K/mm3 (1.3-6.7); Neutrophils Percent Auto 46.3 % (45.5-73.1); Platelet Count Result 228 k/mm3 (150-375); Red Blood Count 3.18 M/mm3 (4.6-6.20); Red Cell Distribution Width 22.5 % (11.5-14.5); White Blood Count 5.2 K/mm3 (4.5-10.0)
[2022-03-01 06:18] LABS: Alanine Aminotransferase 13 U/L (6-50); Albumin Level 3.6 g/dL (3.5-5.1); Alkaline Phosphatase 64 U/L (38-126); Anion Gap 7 mmol/L (8-16); Aspartate Amino Transferase 21 U/L (17-59); Bilirubin,Total 0.7 mg/dL (0.2-1.3); Blood Urea Nitrogen 18 mg/dL (9-20); Calcium 8.6 mg/dL (8.4-10.2); Carbon Dioxide 25 mmol/L (22-30); Chloride 105 mmol/L (98-107); Estimated CRCL calculation 45 ml/min; Estimated Glomerular Filt Rate 45; Glucose 75 mg/dL (65-110); Potassium 3.6 mmol/L (3.4-5.0); Sodium 137 mmol/L (137-145)
[2022-03-01 06:50] LABS: Platelet Estimate Adequate (Adequate)
[2022-03-01 06:51] LABS: Anisocytosis 1+ (NORMAL); Microcytosis 1+ (NORMAL); Poikilocytosis 1+ (NORMAL); Tear Drop Cells 1+ (NORMAL)
[2022-03-01 08:41] LABS: Glucose Point of Care 76 mg/dl (65-105)
[2022-03-01] MEDS: INSULIN GLARGINE (*BKC) 100 UNITS/ML 30 UNITS SUB-Q ×2 (09:31→20:36)
[2022-03-01 09:35] VITALS: PULSE 91
[2022-03-01] MEDS: METOPROLOL TARTRATE 50 MG TAB PO ×2 (09:35→20:36)
[2022-03-01] MEDS: polyethylene glycoL 3350 17 GM POWD.PACK PO (09:36)
[2022-03-01] MEDS: allopurinoL 100 MG TABLET PO ×2 (09:36→17:56)
[2022-03-01] MEDS: amLODIPine BESYLATE 5 MG TABLET PO (10:16)
[2022-03-01 11:09] VITALS: PULSE 84; O2SAT 98
--- NOTE | 2022-03-01 11:22 | P.PNNP_ITS ---
Progress Note: A&P Assessment and Plan (1) ROEL (acute kidney injury): Code(s): N17.9 - Acute kidney failure, unspecified Status: Acute Assessment and Plan: * acute versus acute on chronic?? 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 Status: Acute Assessment and Plan: * clinically improving with IVFs * calcium/phosphorus have normalized * uric acid trending down as well * potassium now normal * follow trend (3) Anemia: Code(s): D64.9 - Anemia, unspecified Status: Acute Assessment and Plan: * H/H low * iron studies okay * started empirically on Epogen * likely due to ROEL but concern is if mutiple myeloma playing a role as well (4) Lytic bone lesion of hip: Code(s): M89.8X5 - Other specified disorders of bone, thigh Status: Acute Assessment and Plan: * Oncology following * suspicion is for multiple myeloma * s/p bone marrow biopsy -- pathology pending (5) Hypertension: Code(s): I10 - Essential (primary) hypertension Status: Acute Assessment and Plan: * reasonable control at this time * follow trend of hemodynamics (6) Diabetes type 2, controlled: Code(s): E11.9 - Type 2 diabetes mellitus without complications Status: Acute Assessment and Plan: * follow accuchecks * on SSI Will continue to follow. Subjective Date/time seen: 03/01/22 11:22 No new issues or problems to report; renal function/creatinine continue to improve with ongoing IVF hydration; no issues/events overnight or earlier this morning; no apparent distress voiced at the time of my visit. Exam Narrative: General: WD/WN AA male in NAD Heart: normal S1 and S2; no rub Lungs: clear to auscultation Abdomen: soft, nontender, nondistended, positive bowel sounds Extremities: no cyanosis or clubbing; no edema Skin: warm and intact Objective Data Vital Signs Vital Signs: Vital Signs Temp Pulse Resp BP Pulse Ox O2 Del Method 03/01/22 11:09 84 98 Room Air 03/01/22 09:35 91 03/01/22 03:30 36.1 C L 81 20 145/55 H 97 02/28/22 20:00 Room Air 02/28/22 20:34 79 02/28/22 19:48 36.3 C L 79 20 128/53 L 99 02/28/22 12:40 36.3 C L 79 18 123/55 L 99 Intake/Output Intake/Output: Intake & Output 02/26/22 02/27/22 02/28/22 03/01/22 23:59 23:59 23:59 23:59 Intake Total 5420 6680 4970 1650 Output Total 3550 3825 2550 1400 Balance 1870 2855 2420 250 Meds/Results Medications: Active Medications Generic Name Dose Route Start Last Admin Trade Name Freq PRN Reason Stop Dose Admin Hydrocodone Bitart/Acetaminophen 1 tab 08
--- NOTE | 2022-03-01 11:22 | PM.PNNEP ---
Progress Note: A&P Assessment and Plan (1) ROEL (acute kidney injury): Code(s): N17.9 - Acute kidney failure, unspecified Status: Acute Assessment and Plan: acute versus acute on chronic?? unclear what his baseline creatinine/kidney function is prior to admission evaluation to date: urine electrolytes are non-prerenal FE-urea is > 35% renal ultrasound as above urinalysis bland CPK okay etiology due to dehydration vs hypercalcemia vs uric acid deposits vs myeloma or a combination of all(?) creatinine improving with IVF hydration attempting to obtain records from PCP regarding previous renal function will slowly wean off IVFs (2) Tumor lysis syndrome: Code(s): E88.3 - Tumor lysis syndrome Status: Acute Assessment and Plan: clinically improving with IVFs calcium/phosphorus have normalized uric acid trending down as well potassium now normal follow trend (3) Anemia: Code(s): D64.9 - Anemia, unspecified Status: Acute Assessment and Plan: H/H low iron studies okay started empirically on Epogen likely due to ROEL but concern is if mutiple myeloma playing a role as well (4) Lytic bone lesion of hip: Code(s): M89.8X5 - Other specified disorders of bone, thigh Status: Acute Assessment and Plan: Oncology following suspicion is for multiple myeloma s/p bone marrow biopsy -- pathology pending (5) Hypertension: Code(s): I10 - Essential (primary) hypertension Status: Acute Assessment and Plan: reasonable control at this time follow trend of hemodynamics (6) Diabetes type 2, controlled: Code(s): E11.9 - Type 2 diabetes mellitus without complications Status: Acute Assessment and Plan: follow accuchecks on SSI Will continue to follow. Subjective Date/time seen: 03/01/22 11:22 No new issues or problems to report; renal function/creatinine continue to improve with ongoing IVF hydration; no issues/events overnight or earlier this morning; no apparent distress voiced at the time of my visit. Exam Narrative: General: WD/WN AA male in NAD Heart: normal S1 and S2; no rub Lungs: clear to auscultation Abdomen: soft, nontender, nondistended, positive bowel sounds Extremities: no cyanosis or clubbing; no edema Skin: warm and intact Objective Data Vital Signs Vital Signs: Vital Signs Temp Pulse Resp BP Pulse Ox O2 Del Method 03/01/22 11:09 84 98 Room Air 03/01/22 09:35 91 03/01/22 03:30 36.1 C L 81 20 145/55 H 97 02/28/22 20:00 Room Air 02/28/22 20:34 79 02/28/22 19:48 36.3 C L 79 20 128/53 L 99 02/28/22 12:40 36.3 C L 79 18 123/55 L 99 Intake/Output Intake/Output: Intake & Output 02/26/22 02/27/22 02/28/22 03/01/22 23:59 23:59 23:59 23:59 Intake Total 5420 6680 4970 1650 Output Total 3550 3825 2550 1400 Balance 1870 2855 2420 250 Meds/Results Medications: Active Medications Generic Name Dose Route Start Last Admin Trade Name Freq PRN Reason Stop Dose Admin Hydrocodone Bitart/Acetaminophen 1 tab 02/24/22 21:46 02/28/22 21:36 Hydrocodone/Acetaminophen (*Crx) 5-325 Mg Tablet PO 1 tab Q6H PRN Administration Pain Rated 4-6 Allopurinol 100 mg 02/24/22 18:00 03/01/22 09:36 Allopurinol 100 Mg Tablet PO 100 mg BID DINO Administration Amlodipine Besylate 5 mg 03/01/22 09:00 03/01/22 10:16 Amlodipine Besylate 5 Mg Tablet PO 5 mg QAM DINO Administration Bisacodyl 5 mg 02/28/22 09:16 02/28/22 09:23 Bisacodyl 5 Mg Tablet Ec PO 5 mg QAM PRN Administration Constipation Dextrose 12.5 gm 02/24/22 21:44 Dextrose 50% 25 Gm/50 Ml Syringe IV PUSH PRN PRN Hypoglycemia Protocol Epoetin Jaime-epbx 10,000 units 02/25/22 09:00 02/28/22 08:28 Epoetin Jaime-Epbx 10,000 Units/Ml Vial SUB-Q 10,000 units MoWeFr@0900 [facility] Administratio
[2022-03-01 12:08] LABS: Glucose Point of Care 117 mg/dl (65-105)
--- NOTE | 2022-03-01 13:07 | P.PNIM_ITS ---
Progress Note: A&P Assessment and Plan (1) Acute on chronic kidney failure: Qualifiers: Acute renal failure type: unspecified Chronic kidney disease stage: stage 4 (severe) Qualified Code(s): N17.9 - Acute kidney failure, unspecified; N18.4 - Chronic kidney disease, stage 4 (severe) Code(s): N17.9 - Acute kidney failure, unspecified; N18.9 - Chronic kidney disease, unspecified Status: Acute Assessment and Plan: Appetite poor prior to admission and may have contributed to dehydration. Patient also has anemia, hypercalcemia, and lytic bone lesions concerning for multiple myeloma. Diabetes and hypertension may be contributing factors for CKD. * Serum and urine protein electrophoresis pending * Continue IV fluid rehydration- per Nephrology. * Nephrology and Oncology have been consulted and appreciated recommendations. * Monitor strict I/O and renal function panel daily * hyperkalemia, hypercalcimia and Scr have improved with hydration * Uric acid >9 on admission, allopurinol started by Oncology. Rasbirucase not available and not administered. Last uric acid level 6.3. (2) Hypercalcemia: Code(s): E83.52 - Hypercalcemia Status: Acute Assessment and Plan: May be some component of dehydration though concerns for myeloma as above. * Continue re-hydration * He received pamidronate per oncology. * 4 doses calcitonin salmon SQ 02/25-02/26 * Calcium within normal limits. * Stable. (3) Normocytic anemia: Code(s): D64.9 - Anemia, unspecified Status: Acute Assessment and Plan: Hematology/oncology following. Likely multifactorial from CKD and presumed canc er. * Hgb 8.5 to 7.6 to 8.4 to 7.5 to 8.2 to 7.4 * No s/s bleeding. * Patient started on epogen * Transfuse if <7 mg/dL. (4) Lytic bone lesions on xray: Code(s): M89.9 - Disorder of bone, unspecified Status: Acute Assessment and Plan: * Plan is as detailed above. Bone marrow biopsy done 02/25 and pathology pending. * Oncology consulted and patient to follow up outpatient. * right acromion pathologic fracture 02/22/22. Continue RUE sling. * Stable (5) Insulin dependent type 2 diabetes mellitus: Code(s): E11.9 - Type 2 diabetes mellitus without complications; Z79.4 - USP (current) use of insulin Status: Acute Assessment and Plan: Insulin dependent diabetes mellitus. A1c 6.8%. * Continue sliding scale insulin, Accu-Cheks, and hypoglycemic protocol. * Glucose 76 to 117 mg/dL. He reports eating most of his meals. * Decrease lantus - 30 units am and hs. Patient was taking 120 units of lantus at HS and has had his dose decreased significantly due to hypoglycemia. * Encouraged HS snack. * Continue to monitor and adjusting basal-bolus insulin. (6) Hypertension: Code(s): I10 - Essential (primary) hypertension Status: Acute Assessment and Plan: BP 123/55 to 145/55. * Continue amlodipine 5 mg daily. * Continue metoprolol at home dose. * Holding Lisinopril and diuretics due to ROEL. * Continue to monitor. (7) Constipation: Code(s): K59.00 - Constipation, unspecified Status: Acute Assessment and Plan: Miralax PO daily. Bisacodyl suppository PRN daily Plan CODE STATUS: FULL CODE Disposition: home Time Spent With Patient Time with patient: 15 - 25 minutes Subjective Date/time seen: 03/01/22 13:07 He has not had a bowel movement in 3 days. He denies naus
--- NOTE | 2022-03-01 13:07 | PM.IMPN ---
Progress Note: A&P Assessment and Plan (1) Acute on chronic kidney failure: Qualifiers: Acute renal failure type: unspecified Chronic kidney disease stage: stage 4 (severe) Qualified Code(s): N17.9 - Acute kidney failure, unspecified; N18.4 - Chronic kidney disease, stage 4 (severe) Code(s): N17.9 - Acute kidney failure, unspecified; N18.9 - Chronic kidney disease, unspecified Status: Acute Assessment and Plan: Appetite poor prior to admission and may have contributed to dehydration. Patient also has anemia, hypercalcemia, and lytic bone lesions concerning for multiple myeloma. Diabetes and hypertension may be contributing factors for CKD. Serum and urine protein electrophoresis pending Continue IV fluid rehydration- per Nephrology. Nephrology and Oncology have been consulted and appreciated recommendations. Monitor strict I/O and renal function panel daily hyperkalemia, hypercalcimia and Scr have improved with hydration Uric acid >9 on admission, allopurinol started by Oncology. Rasbirucase not available and not administered. Last uric acid level 6.3. (2) Hypercalcemia: Code(s): E83.52 - Hypercalcemia Status: Acute Assessment and Plan: May be some component of dehydration though concerns for myeloma as above. Continue re-hydration He received pamidronate per oncology. 4 doses calcitonin salmon SQ 02/25-02/26 Calcium within normal limits. Stable. (3) Normocytic anemia: Code(s): D64.9 - Anemia, unspecified Status: Acute Assessment and Plan: Hematology/oncology following. Likely multifactorial from CKD and presumed cancer. Hgb 8.5 to 7.6 to 8.4 to 7.5 to 8.2 to 7.4 No s/s bleeding. Patient started on epogen Transfuse if <7 mg/dL. (4) Lytic bone lesions on xray: Code(s): M89.9 - Disorder of bone, unspecified Status: Acute Assessment and Plan: Plan is as detailed above. Bone marrow biopsy done 02/25 and pathology pending. Oncology consulted and patient to follow up outpatient. right acromion pathologic fracture 02/22/22. Continue RUE sling. Stable (5) Insulin dependent type 2 diabetes mellitus: Code(s): E11.9 - Type 2 diabetes mellitus without complications; Z79.4 - intermediate (current) use of insulin Status: Acute Assessment and Plan: Insulin dependent diabetes mellitus. A1c 6.8%. Continue sliding scale insulin, Accu-Cheks, and hypoglycemic protocol. Glucose 76 to 117 mg/dL. He reports eating most of his meals. Decrease lantus - 30 units am and hs. Patient was taking 120 units of lantus at HS and has had his dose decreased significantly due to hypoglycemia. Encouraged HS snack. Continue to monitor and adjusting basal-bolus insulin. (6) Hypertension: Code(s): I10 - Essential (primary) hypertension Status: Acute Assessment and Plan: BP 123/55 to 145/55. Continue amlodipine 5 mg daily. Continue metoprolol at home dose. Holding Lisinopril and diuretics due to ROEL. Continue to monitor. (7) Constipation: Code(s): K59.00 - Constipation, unspecified Status: Acute Assessment and Plan: Miralax PO daily. Bisacodyl suppository PRN daily Plan CODE STATUS: FULL CODE Disposition: home Time Spent With Patient Time with patient: 15 - 25 minutes Subjective Date/time seen: 03/01/22 13:07 He has not had a bowel movement in 3 days. He denies nausea, vomiting or abdominal pain. He has been urinating without difficulty. No shortness of breath, chest pain, palpitations, headache or dizziness. His serum glucose was 75 this morning. He has been eating 50% of meals. Review of Systems Review of Systems: All systems reviewed & are unremarkable except as noted in HPI and below Exam Narrative: General:?No acute distress. Sitting up in the bed. HEENT:?PERRL, EOMI. Conjunctivae anicteric. mucous membranes moist.
[2022-03-01] MEDS: BISACODYL 10 MG SUPPOSITORY RECTAL (13:42)
[2022-03-01 14:08] VITALS: BP 115/59; PULSE 78; RESP 18; TEMP 36.5; O2SAT 98
[2022-03-01 17:13] LABS: Glucose Point of Care 127 mg/dl (65-105)
[2022-03-01 19:57] VITALS: BP 118/45; PULSE 79; RESP 18; TEMP 36.5; O2SAT 98
[2022-03-01 20:36] VITALS: PULSE 79
[2022-03-01] MEDS: LATANOPROST 0.005% OP SOLN 2.5 ML BTL 1 DROP EACH EYE (20:37)
[2022-03-01 22:25] LABS: Glucose Point of Care 169 mg/dl (65-105)
[2022-03-02] MEDS: SODIUM CHLORIDE 0.9% IV 1,000 ML 100 ML IV CONT ×2 (00:18→10:49)
[2022-03-02 04:24] VITALS: BP 131/53; PULSE 81; RESP 20; TEMP 36.4; O2SAT 98
[2022-03-02] MEDS: HEPARIN SODIUM 5,000 UNITS/ML VIAL 5000 UNITS SUB-Q ×3 (05:36→21:18)
[2022-03-02 05:59] LABS: Basophils Absolute Auto 0.1 K/mm3 (0.0-0.1); Eosinophils Absolute Auto 0.4 K/mm3 (0-0.3); Eosinophils Percent Auto 8.2 % (0-4.4); Hematocrit 23.1 % (42.0-52.0); Hemoglobin 7.3 g/dL (14.0-18.0); Immature Granulocyte Absolute 0.03 K/mm3 (0.00-0.031); Immature Granulocyte Percent A 0.6 % (0-0.5); Immature Platelet Fraction Pct 2.6 % (0.9-11.2); Lymphocytes Absolute Auto 1.85 K/mm3 (0.9-3.2); Lymphocytes Percent Auto 36.1 % (18.3-44.2); Mean Corpuscular HGB Conc 31.6 g/dl (32-36); Mean Corpuscular Hemoglobin 23.2 pg (26-34); Mean Corpuscular Volume 73.3 fl (80-100); Mean Platelet Volume 9.8 fl (7.4-10.4); Monocytes Absolute Auto 0.5 K/mm3 (0.1-0.6); Monocytes Percent Auto 9.7 % (2.6-8.5); Neutrophils Absolute Auto 2.3 K/mm3 (1.3-6.7); Neutrophils Percent Auto 44.4 % (45.5-73.1); Nucleated Red Blood Cells Perc 0.6 % (0.0-0.2); Platelet Count Result 232 k/mm3 (150-375); Red Blood Count 3.15 M/mm3 (4.6-6.20); Red Cell Distribution Width 22.5 % (11.5-14.5); White Blood Count 5.1 K/mm3 (4.5-10.0)
[2022-03-02 06:11] LABS: Alanine Aminotransferase 14 U/L (6-50); Albumin Level 3.6 g/dL (3.5-5.1); Alkaline Phosphatase 68 U/L (38-126); Anion Gap 6 mmol/L (8-16); Aspartate Amino Transferase 16 U/L (17-59); Bilirubin,Total 0.8 mg/dL (0.2-1.3); Blood Urea Nitrogen 15 mg/dL (9-20); Calcium 7.9 mg/dL (8.4-10.2); Carbon Dioxide 25 mmol/L (22-30); Chloride 108 mmol/L (98-107); Estimated CRCL calculation 45 ml/min; Estimated Glomerular Filt Rate 45; Glucose 109 mg/dL (65-110); Potassium 3.8 mmol/L (3.4-5.0); Sodium 139 mmol/L (137-145)
[2022-03-02 07:01] LABS: Anisocytosis 1+ (NORMAL); Macrocytosis 1+ (NORMAL); Ovalocytes 1+ (NORMAL); Platelet Estimate Adequate (Adequate)
[2022-03-02 07:02] LABS: Acanthocytes 1+ (NORMAL)
[2022-03-02 07:03] LABS: Microcytosis 1+ (NORMAL)
--- NOTE | 2022-03-02 07:39 | P.PNIM_ITS ---
Progress Note: A&P Assessment and Plan (1) Acute on chronic kidney failure: Qualifiers: Acute renal failure type: unspecified Chronic kidney disease stage: stage 4 (severe) Qualified Code(s): N17.9 - Acute kidney failure, unspecified; N18.4 - Chronic kidney disease, stage 4 (severe) Code(s): N17.9 - Acute kidney failure, unspecified; N18.9 - Chronic kidney disease, unspecified Status: Acute Assessment and Plan: Appetite poor prior to admission and may have contributed to dehydration. Patient also has anemia, hypercalcemia, and lytic bone lesions concerning for multiple myeloma. Diabetes and hypertension may be contributing factors for CKD. * Serum and urine protein electrophoresis pending * Continue IV fluid rehydration- per Nephrology. * Nephrology and Oncology have been consulted and appreciated recommendations. * Monitor strict I/O and renal function panel daily * hyperkalemia, hypercalcimia and Scr have improved with hydration * Uric acid >9 on admission, allopurinol started by Oncology. Rasbirucase not available and not administered. Last uric acid level 6.3. * 03/02/2022-significant improvement renal function improved creatinine 1.8, calcium 7.9 (2) Hypercalcemia: Code(s): E83.52 - Hypercalcemia Status: Acute Assessment and Plan: May be some component of dehydration though concerns for myeloma as above. * Continue re-hydration * He received pamidronate per oncology. * 4 doses calcitonin salmon SQ 02/25-02/26 * Calcium within normal limits. * Stable. (3) Normocytic anemia: Code(s): D64.9 - Anemia, unspecified Status: Acute Assessment and Plan: Hematology/oncology following. Likely multifactorial from CKD and presumed cancer. * Hgb 8.5 to 7.6 to 8.4 to 7.5 to 8.2 to 7.4 * No s/s bleeding. * Patient started on epogen * Transfuse if <7 mg/dL. * Patient will follow-up with oncology in the outpatient basis within bone marrow biopsy results return. Last oncology note 02/24/2022 (4) Lytic bone lesions on xray: Code(s): M89.9 - Disorder of bone, unspecified Status: Acute Assessment and Plan: * Plan is as detailed above. Bone marrow biopsy done 02/25 and pathology pending. * Oncology consulted and patient to follow up outpatient. * right acromion pathologic fracture 02/22/22. Continue RUE sling. * Stable (5) Insulin dependent type 2 diabetes mellitus: Code(s): E11.9 - Type 2 diabetes mellitus without complications; Z79.4 - group home (current) use of insulin Status: Acute Assessment and Plan: Insulin dependent diabetes mellitus. A1c 6.8%. * Continue sliding scale insulin, Accu-Cheks, and hypoglycemic protocol. * Glucose 76 to 117 mg/dL. He reports eating most of his meals. * Decrease lantus - 30 units am and hs. Patient was taking 120 units of lantus at HS and has had his dose decreased significantly due to hypoglycemia. * Encouraged HS snack. * Continue to monitor and adjusting basal-bolus insulin. (6) Hypertension: Code(s): I10 - Essential (primary) hypertension Status: Acute Assessment and Plan: BP 123/55 to 145/55. * Continue amlodipine 5 mg daily. * Continue metoprolol at home dose. * Holding Lisinopril and diuretics due to ROEL. * Continue to monitor. (7) Constipation: Code(s): K59.00 - Constipation, unspecified Status: Acute Assessment and Plan: Miralax PO daily. Bisacodyl suppository PRN daily Plan CODE STATUS: Juliette
--- NOTE | 2022-03-02 07:39 | PM.IMPN ---
Progress Note: A&P Assessment and Plan (1) Acute on chronic kidney failure: Qualifiers: Acute renal failure type: unspecified Chronic kidney disease stage: stage 4 (severe) Qualified Code(s): N17.9 - Acute kidney failure, unspecified; N18.4 - Chronic kidney disease, stage 4 (severe) Code(s): N17.9 - Acute kidney failure, unspecified; N18.9 - Chronic kidney disease, unspecified Status: Acute Assessment and Plan: Appetite poor prior to admission and may have contributed to dehydration. Patient also has anemia, hypercalcemia, and lytic bone lesions concerning for multiple myeloma. Diabetes and hypertension may be contributing factors for CKD. Serum and urine protein electrophoresis pending Continue IV fluid rehydration- per Nephrology. Nephrology and Oncology have been consulted and appreciated recommendations. Monitor strict I/O and renal function panel daily hyperkalemia, hypercalcimia and Scr have improved with hydration Uric acid >9 on admission, allopurinol started by Oncology. Rasbirucase not available and not administered. Last uric acid level 6.3. 03/02/2022-significant improvement renal function improved creatinine 1.8, calcium 7.9 (2) Hypercalcemia: Code(s): E83.52 - Hypercalcemia Status: Acute Assessment and Plan: May be some component of dehydration though concerns for myeloma as above. Continue re-hydration He received pamidronate per oncology. 4 doses calcitonin salmon SQ 02/25-02/26 Calcium within normal limits. Stable. (3) Normocytic anemia: Code(s): D64.9 - Anemia, unspecified Status: Acute Assessment and Plan: Hematology/oncology following. Likely multifactorial from CKD and presumed cancer. Hgb 8.5 to 7.6 to 8.4 to 7.5 to 8.2 to 7.4 No s/s bleeding. Patient started on epogen Transfuse if <7 mg/dL. Patient will follow-up with oncology in the outpatient basis within bone marrow biopsy results return. Last oncology note 02/24/2022 (4) Lytic bone lesions on xray: Code(s): M89.9 - Disorder of bone, unspecified Status: Acute Assessment and Plan: Plan is as detailed above. Bone marrow biopsy done 02/25 and pathology pending. Oncology consulted and patient to follow up outpatient. right acromion pathologic fracture 02/22/22. Continue RUE sling. Stable (5) Insulin dependent type 2 diabetes mellitus: Code(s): E11.9 - Type 2 diabetes mellitus without complications; Z79.4 - [facility] [employer] [facility] (current) use of insulin Status: Acute Assessment and Plan: Insulin dependent diabetes mellitus. A1c 6.8%. Continue sliding scale insulin, Accu-Cheks, and hypoglycemic protocol. Glucose 76 to 117 mg/dL. He reports eating most of his meals. Decrease lantus - 30 units am and hs. Patient was taking 120 units of lantus at HS and has had his dose decreased significantly due to hypoglycemia. Encouraged HS snack. Continue to monitor and adjusting basal-bolus insulin. (6) Hypertension: Code(s): I10 - Essential (primary) hypertension Status: Acute Assessment and Plan: BP 123/55 to 145/55. Continue amlodipine 5 mg daily. Continue metoprolol at home dose. Holding Lisinopril and diuretics due to ROEL. Continue to monitor. (7) Constipation: Code(s): K59.00 - Constipation, unspecified Status: Acute Assessment and Plan: Miralax PO daily. Bisacodyl suppository PRN daily Plan CODE STATUS: FULL CODE Disposition: home Subjective Date/time seen: 03/02/22 07:39 Patient is alert and oriented this morning. His renal function is slightly improved. Nephrology on for management. Oncology evaluated the patient on 02/24/2022 and suggested follow-up on outpatient basis with Dr. Thomas. pending possible discharge later in the week. Review of Systems Review of Systems: All systems reviewed & are unremarkable except as noted in HPI
[2022-03-02 08:29] LABS: Glucose Point of Care 93 mg/dl (65-105)
[2022-03-02 08:34] VITALS: PULSE 90
[2022-03-02] MEDS: METOPROLOL TARTRATE 50 MG TAB PO ×2 (08:34→21:18)
[2022-03-02] MEDS: polyethylene glycoL 3350 17 GM POWD.PACK PO (08:34)
[2022-03-02] MEDS: allopurinoL 100 MG TABLET PO ×2 (08:35→17:26)
[2022-03-02] MEDS: amLODIPine BESYLATE 5 MG TABLET PO (08:35)
[2022-03-02] MEDS: INSULIN GLARGINE (*BKC) 100 UNITS/ML 30 UNITS SUB-Q ×2 (08:36→21:17)
[2022-03-02] MEDS: EPOETIN ALFA-EPBX 10,000 UNITS/ML VIAL 10000 UNITS SUB-Q (08:36)
[2022-03-02 12:45] LABS: Glucose Point of Care 148 mg/dl (65-105)
--- NOTE | 2022-03-02 13:24 | P.PNNP_ITS ---
Progress Note: A&P Assessment and Plan (1) ROEL (acute kidney injury): Code(s): N17.9 - Acute kidney failure, unspecified Status: Acute Assessment and Plan: * acute versus acute on chronic?? 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 Status: Acute Assessment and Plan: * clinically improving with IVFs * calcium/phosphorus have normalized * uric acid trending down as well * potassium now normal * follow trend (3) Anemia: Code(s): D64.9 - Anemia, unspecified Status: Acute Assessment and Plan: * H/H low * iron studies okay * started empirically on Epogen * likely due to ROEL but concern is if mutiple myeloma playing a role as well (4) Lytic bone lesion of hip: Code(s): M89.8X5 - Other specified disorders of bone, thigh Status: Acute Assessment and Plan: * Oncology following * suspicion is for multiple myeloma * s/p bone marrow biopsy -- pathology pending (5) Hypertension: Code(s): I10 - Essential (primary) hypertension Status: Acute Assessment and Plan: * reasonable control at this time * follow trend of hemodynamics (6) Diabetes type 2, controlled: Code(s): E11.9 - Type 2 diabetes mellitus without complications Status: Acute Assessment and Plan: * follow accuchecks * on SSI Would not be opposed to discharge tomorrow if creatinine remains stable if not better by AM labs tomorrow. He can follow-up with Dr. Lozoya in clinic if his renal function does not normalize for further management. Will continue to follow. Subjective Date/time seen: 03/02/22 13:24 No apparent distress voiced at this time; getting anxious for discharge; eating and drinking better; overall, feels better in comparison to admission; no issues/events overnight or earlier this AM; no distress voiced, renal function/creatinine the same as yesterday. Exam Narrative: General: WD/WN AA male in NAD Heart: normal S1 and S2; no rub Lungs: clear to auscultation Abdomen: soft, nontender, nondistended, positive bowel sounds Extremities: no cyanosis or clubbing; no edema Skin: no rash or nodules Objective Data Vital Signs Vital Signs: Vital Signs Temp Pulse Resp BP Pulse Ox O2 Del Method 03/02/22 08:35 Room Air 03/02/22 08:34 90 03/02/22 04:24 36.4 C 81 20 131/53 L 98 03/01/22 20:00 Room Air 03/01/22 20:36 79 03/01/22 19:57 36.5 C 79 18 118/45 L 98 Intake/Output Intake/Output: Intake & Output 02/27/22 02/28/22 03/01/22 03/02/22 23:59 23:59 23:59 23:59 Intake Total 6680 4970 5610 2870 Output Total 3825 2550 3275 1300
--- NOTE | 2022-03-02 13:24 | PM.PNNEP ---
Progress Note: A&P Assessment and Plan (1) ROEL (acute kidney injury): Code(s): N17.9 - Acute kidney failure, unspecified Status: Acute Assessment and Plan: acute versus acute on chronic?? unclear what his baseline creatinine/kidney function is prior to admission evaluation to date: urine electrolytes are non-prerenal FE-urea is > 35% renal ultrasound as above urinalysis bland CPK okay etiology due to dehydration vs hypercalcemia vs uric acid deposits vs myeloma or a combination of all(?) creatinine better with IVFs is creatinine of 1.8mg/dl his new baseline would assume so depending on repeat labs tomorrow attempting to obtain records from PCP regarding previous renal function will slowly wean off IVFs (2) Tumor lysis syndrome: Code(s): E88.3 - Tumor lysis syndrome Status: Acute Assessment and Plan: clinically improving with IVFs calcium/phosphorus have normalized uric acid trending down as well potassium now normal follow trend (3) Anemia: Code(s): D64.9 - Anemia, unspecified Status: Acute Assessment and Plan: H/H low iron studies okay started empirically on Epogen likely due to ROEL but concern is if mutiple myeloma playing a role as well (4) Lytic bone lesion of hip: Code(s): M89.8X5 - Other specified disorders of bone, thigh Status: Acute Assessment and Plan: Oncology following suspicion is for multiple myeloma s/p bone marrow biopsy -- pathology pending (5) Hypertension: Code(s): I10 - Essential (primary) hypertension Status: Acute Assessment and Plan: reasonable control at this time follow trend of hemodynamics (6) Diabetes type 2, controlled: Code(s): E11.9 - Type 2 diabetes mellitus without complications Status: Acute Assessment and Plan: follow accuchecks on SSI Would not be opposed to discharge tomorrow if creatinine remains stable if not better by AM labs tomorrow. He can follow-up with Dr. Lozoya in clinic if his renal function does not normalize for further management. Will continue to follow. Subjective Date/time seen: 03/02/22 13:24 No apparent distress voiced at this time; getting anxious for discharge; eating and drinking better; overall, feels better in comparison to admission; no issues/events overnight or earlier this AM; no distress voiced, renal function/creatinine the same as yesterday. Exam Narrative: General: WD/WN AA male in NAD Heart: normal S1 and S2; no rub Lungs: clear to auscultation Abdomen: soft, nontender, nondistended, positive bowel sounds Extremities: no cyanosis or clubbing; no edema Skin: no rash or nodules Objective Data Vital Signs Vital Signs: Vital Signs Temp Pulse Resp BP Pulse Ox O2 Del Method 03/02/22 08:35 Room Air 03/02/22 08:34 90 03/02/22 04:24 36.4 C 81 20 131/53 L 98 03/01/22 20:00 Room Air 03/01/22 20:36 79 03/01/22 19:57 36.5 C 79 18 118/45 L 98 Intake/Output Intake/Output: Intake & Output 02/27/22 02/28/22 03/01/22 03/02/22 23:59 23:59 23:59 23:59 Intake Total 6680 4970 5610 2870 Output Total 3825 2550 3275 1300 Balance 2855 2420 2335 1570 Meds/Results Medications: Active Medications Generic Name Dose Route Start Last Admin Trade Name Freq PRN Reason Stop Dose Admin Hydrocodone Bitart/Acetaminophen 1 tab 02/24/22 21:46 02/28/22 21:36 Hydrocodone/Acetaminophen (*Crx) 5-325 Mg Tablet PO 1 tab Q6H PRN Administration Pain Rated 4-6 Allopurinol 100 mg 02/24/22 18:00 03/02/22 17:26 Allopurinol 100 Mg Tablet PO 100 mg BID DINO Administration Amlodipine Besylate 5 mg 03/01/22 09:00 03/02/22 08:35 Amlodipine Besylate 5 Mg Tablet PO 5 mg QAM DINO Administration Bisacodyl 10 mg 03/01/22 13:06 03/01/22 13:42 Bisacodyl 10 Mg Suppository RECTAL 10 mg QAM PRN Administrat
[2022-03-02 14:00] VITALS: BP 131/52; PULSE 83; RESP 20; TEMP 36.4; O2SAT 95
[2022-03-02 14:45] LABS: Beta-2-Microglobulin 18.65 mg/L (<=2.51)
[2022-03-02 17:09] LABS: Albumin 4.3 g/dL (3.8-4.8); Alpha 1 Globulin 0.4 g/dL (0.2-0.3); Beta 1 Globulin 0.3 g/dL (0.4-0.6); Gamma Globulin 0.9 g/dL (0.8-1.7); Protein, Total 7.2 g/dL (6.1-8.1)
[2022-03-02 17:20] LABS: Glucose Point of Care 167 mg/dl (65-105)
[2022-03-02 19:54] LABS: Albumin 31 %; Measured Kappa Chains <1.00 mg/dL (<2.00); Measured Lambda Chains <1.00 mg/dL (<2.00); Pro/Creat Ratio 178 mg/g creat (<=114)
[2022-03-02 20:45] VITALS: BP 128/52; PULSE 76; RESP 14; TEMP 36.5; O2SAT 100
[2022-03-02 21:10] LABS: Glucose Point of Care 193 mg/dl (65-105)
[2022-03-02 21:18] VITALS: PULSE 76
[2022-03-02] MEDS: LATANOPROST 0.005% OP SOLN 2.5 ML BTL 1 DROP EACH EYE (21:19)
[2022-03-02 22:33] VITALS: O2SAT 99
[2022-03-02 23:33] LABS: Total Protein/Creatinine Ratio 224 mg/g creat (22-128)
[2022-03-03 05:33] VITALS: BP 131/55; PULSE 81; RESP 16; TEMP 36.4; O2SAT 98
[2022-03-03 05:50] LABS: Basophils Absolute Auto 0.1 K/mm3 (0.0-0.1); Basophils Percent Auto 0.9 % (0.2-1.2); Eosinophils Absolute Auto 0.4 K/mm3 (0-0.3); Eosinophils Percent Auto 6.7 % (0-4.4); Hematocrit 23.9 % (42.0-52.0); Hemoglobin 7.5 g/dL (14.0-18.0); Immature Granulocyte Absolute 0.04 K/mm3 (0.00-0.031); Immature Granulocyte Percent A 0.7 % (0-0.5); Lymphocytes Percent Auto 38.1 % (18.3-44.2); Mean Corpuscular HGB Conc 31.4 g/dl (32-36); Mean Corpuscular Hemoglobin 22.9 pg (26-34); Mean Corpuscular Volume 73.1 fl (80-100); Mean Platelet Volume 9.1 fl (7.4-10.4); Monocytes Absolute Auto 0.5 K/mm3 (0.1-0.6); Monocytes Percent Auto 9.1 % (2.6-8.5); Neutrophils Absolute Auto 2.5 K/mm3 (1.3-6.7); Neutrophils Percent Auto 44.5 % (45.5-73.1); Nucleated Red Blood Cells Perc 0.7 % (0.0-0.2); Platelet Count Result 236 k/mm3 (150-375); Red Blood Count 3.27 M/mm3 (4.6-6.20); Red Cell Distribution Width 22.6 % (11.5-14.5); White Blood Count 5.5 K/mm3 (4.5-10.0)
[2022-03-03 06:07] LABS: Alanine Aminotransferase 27 U/L (6-50); Albumin Level 3.7 g/dL (3.5-5.1); Alkaline Phosphatase 70 U/L (38-126); Anion Gap 8 mmol/L (8-16); Aspartate Amino Transferase 28 U/L (17-59); Bilirubin,Total 0.8 mg/dL (0.2-1.3); Blood Urea Nitrogen 17 mg/dL (9-20); Calcium 8.4 mg/dL (8.4-10.2); Carbon Dioxide 25 mmol/L (22-30); Chloride 105 mmol/L (98-107); Estimated CRCL calculation 45 ml/min; Estimated Glomerular Filt Rate 45; Glucose 105 mg/dL (65-110); Potassium 3.9 mmol/L (3.4-5.0); Sodium 138 mmol/L (137-145)
[2022-03-03 06:36] LABS: Platelet Estimate Adequate (Adequate)
[2022-03-03 06:37] LABS: Anisocytosis 1+ (NORMAL); Microcytosis 1+ (NORMAL); Ovalocytes 1+ (NORMAL)
--- NOTE | 2022-03-03 07:45 | P.DS_ITS ---
DS: Admitting Diagnosis Discharge Date 03/03/2022 Admitting Diagnosis ROEL Tumor lysis syndrome Anemia Lytic bone lesion of the hip Hypertension Diabetes mellitus type 2 DS: Discharge Diagnosis Discharge Diagnosis (1) Acute on chronic kidney failure: Qualifiers: Acute renal failure type: unspecified Chronic kidney disease stage: stage 4 (severe) Qualified Code(s): N17.9 - Acute kidney failure, unspecified; N18.4 - Chronic kidney disease, stage 4 (severe) Code(s): N17.9 - Acute kidney failure, unspecified; N18.9 - Chronic kidney disease, unspecified Status: Acute Assessment and Plan: Appetite poor prior to admission and may have contributed to dehydration. Patient also has anemia, hypercalcemia, and lytic bone lesions concerning for multiple myeloma. Diabetes and hypertension may be contributing factors for CKD. * Serum and urine protein electrophoresis pending * Continue IV fluid rehydration- per Nephrology. * Nephrology and Oncology have been consulted and appreciated recommendations. * Monitor strict I/O and renal function panel daily * hyperkalemia, hypercalcimia and Scr have improved with hydration * Uric acid >9 on admission, allopurinol started by Oncology. Rasbirucase not available and not administered. Last uric acid level 6.3. * 03/02/2022-significant improvement renal function improved creatinine 1.8, calcium 7.9 (2) Hypercalcemia: Code(s): E83.52 - Hypercalcemia Status: Acute Assessment and Plan: May be some component of dehydration though concerns for myeloma as above. * Continue re-hydration * He received pamidronate per oncology. * 4 doses calcitonin salmon SQ 02/25-02/26 * Calcium within normal limits. * Stable. (3) Normocytic anemia: Code(s): D64.9 - Anemia, unspecified Status: Acute Assessment and Plan: Hematology/oncology following. Likely multifactorial from CKD and presumed cancer. * Hgb 8.5 to 7.6 to 8.4 to 7.5 to 8.2 to 7.4 * No s/s bleeding. * Patient started on epogen * Transfuse if <7 mg/dL. * Patient will follow-up with oncology in the outpatient basis within bone marrow biopsy results return. Last oncology note 02/24/2022 (4) Lytic bone lesions on xray: Code(s): M89.9 - Disorder of bone, unspecified Status: Acute Assessment and Plan: * Plan is as detailed above. Bone marrow biopsy done 02/25 and pathology pending. * Oncology consulted and patient to follow up outpatient. * right acromion pathologic fracture 02/22/22. Continue RUE sling. * Stable (5) Insulin dependent type 2 diabetes mellitus: Code(s): E11.9 - Type 2 diabetes mellitus without complications; Z79.4 - [facility] (current) use of insulin Status: Acute Assessment and Plan: Insulin dependent diabetes mellitus. A1c 6.8%. * Continue sliding scale insulin, Accu-Cheks, and hypoglycemic protocol. * Glucose 76 to 117 mg/dL. He reports eating most of his meals. * Decrease lantus - 30 units am and hs. Patient was taking 120 units of lantus at HS and has had his dose decreased significantly due to hypoglycemia. * Encouraged HS snack. * Continue to monitor and adjusting basal-bolus insulin. (6) Hypertension: Code(s): I10 - Essential (primary) hypertension Status: Acute Assessment and Plan: BP 123/55 to 145/55. * Continue amlodipine 5 mg daily. * Continue metoprolol at home dose. * Holding Lisinopril and diuretics due to ROEL. * Continue to monitor. (7) Albert
--- NOTE | 2022-03-03 07:45 | PM.DS ---
DS: Admitting Diagnosis Discharge Date 03/03/2022 Admitting Diagnosis ROEL Tumor lysis syndrome Anemia Lytic bone lesion of the hip Hypertension Diabetes mellitus type 2 DS: Discharge Diagnosis Discharge Diagnosis (1) Acute on chronic kidney failure: Qualifiers: Acute renal failure type: unspecified Chronic kidney disease stage: stage 4 (severe) Qualified Code(s): N17.9 - Acute kidney failure, unspecified; N18.4 - Chronic kidney disease, stage 4 (severe) Code(s): N17.9 - Acute kidney failure, unspecified; N18.9 - Chronic kidney disease, unspecified Status: Acute Assessment and Plan: Appetite poor prior to admission and may have contributed to dehydration. Patient also has anemia, hypercalcemia, and lytic bone lesions concerning for multiple myeloma. Diabetes and hypertension may be contributing factors for CKD. Serum and urine protein electrophoresis pending Continue IV fluid rehydration- per Nephrology. Nephrology and Oncology have been consulted and appreciated recommendations. Monitor strict I/O and renal function panel daily hyperkalemia, hypercalcimia and Scr have improved with hydration Uric acid >9 on admission, allopurinol started by Oncology. Rasbirucase not available and not administered. Last uric acid level 6.3. 03/02/2022-significant improvement renal function improved creatinine 1.8, calcium 7.9 (2) Hypercalcemia: Code(s): E83.52 - Hypercalcemia Status: Acute Assessment and Plan: May be some component of dehydration though concerns for myeloma as above. Continue re-hydration He received pamidronate per oncology. 4 doses calcitonin salmon SQ 02/25-02/26 Calcium within normal limits. Stable. (3) Normocytic anemia: Code(s): D64.9 - Anemia, unspecified Status: Acute Assessment and Plan: Hematology/oncology following. Likely multifactorial from CKD and presumed cancer. Hgb 8.5 to 7.6 to 8.4 to 7.5 to 8.2 to 7.4 No s/s bleeding. Patient started on epogen Transfuse if <7 mg/dL. Patient will follow-up with oncology in the outpatient basis within bone marrow biopsy results return. Last oncology note 02/24/2022 (4) Lytic bone lesions on xray: Code(s): M89.9 - Disorder of bone, unspecified Status: Acute Assessment and Plan: Plan is as detailed above. Bone marrow biopsy done 02/25 and pathology pending. Oncology consulted and patient to follow up outpatient. right acromion pathologic fracture 02/22/22. Continue RUE sling. Stable (5) Insulin dependent type 2 diabetes mellitus: Code(s): E11.9 - Type 2 diabetes mellitus without complications; Z79.4 - shelter (current) use of insulin Status: Acute Assessment and Plan: Insulin dependent diabetes mellitus. A1c 6.8%. Continue sliding scale insulin, Accu-Cheks, and hypoglycemic protocol. Glucose 76 to 117 mg/dL. He reports eating most of his meals. Decrease lantus - 30 units am and hs. Patient was taking 120 units of lantus at HS and has had his dose decreased significantly due to hypoglycemia. Encouraged HS snack. Continue to monitor and adjusting basal-bolus insulin. (6) Hypertension: Code(s): I10 - Essential (primary) hypertension Status: Acute Assessment and Plan: BP 123/55 to 145/55. Continue amlodipine 5 mg daily. Continue metoprolol at home dose. Holding Lisinopril and diuretics due to ROEL. Continue to monitor. (7) Constipation: Code(s): K59.00 - Constipation, unspecified Status: Acute Assessment and Plan: Miralax PO daily. Bisacodyl suppository PRN daily Plan CODE STATUS: FULL CODE Disposition: home DS: Summary Hospital Course Reason for hospitalization: Abnormal lab work Hospital Course: 71-year-old male with hypertension, dyslipidemia, type 2 diabetes mellitus, and chronic kidney disease who presented to the emergency
[2022-03-03 08:41] LABS: Glucose Point of Care 97 mg/dl (65-105)
[2022-03-03] MEDS: allopurinoL 100 MG TABLET PO (09:12)
[2022-03-03] MEDS: METOPROLOL TARTRATE 50 MG TAB PO (09:12)
[2022-03-03] MEDS: amLODIPine BESYLATE 5 MG TABLET PO (09:12)
[2022-03-03] MEDS: INSULIN GLARGINE (*BKC) 100 UNITS/ML 30 UNITS SUB-Q (09:13)
[2022-03-03] MEDS: polyethylene glycoL 3350 17 GM POWD.PACK PO (09:13)
[2022-03-03] MEDS: HEPARIN SODIUM 5,000 UNITS/ML VIAL 5000 UNITS SUB-Q (09:13)
[2022-03-03 13:29] LABS: Glucose Point of Care 110 mg/dl (65-105)
[2022-03-21 13:38] LABS: Protein,total, 24 Hr Ur 510 mg/24h
== END 2022-03-03 11:07 | disposition home or self-care (01) | DRG 840 ==
LOC: ANHED 15:25 → ANH2MED 16:12
PROVIDERS: Family Medicine; Internal Medicine Nephrology; Nurse Practitioner Family; Physician Assistant; Radiology Diagnostic Radiology; Student in an Organized Health Care Education/Training Program; Admitting Provider Student in an Organized Health Care Education/Training Program; Emergency Provider Emergency Medicine; Visit Provider Nurse Practitioner Family
PROC: 079T3ZX Drainage of Bone Marrow, Percutaneous Approach, Diagnostic (ICD-10-PCS; principal; 2022-02-25 10:00)
DX: C90.00 Multiple myeloma not having achieved remission (principal); E88.3 Tumor lysis syndrome; N17.9 Acute kidney failure, unspecified; M84.48XA Pathological fracture, other site, initial encounter for fracture; N18.4 Chronic kidney disease, stage 4 (severe); E87.5 Hyperkalemia; E83.52 Hypercalcemia; I10 Essential (primary) hypertension; E11.22 Type 2 diabetes mellitus with diabetic chronic kidney disease; I12.9 Hypertensive chronic kidney disease with stage 1 through stage 4 chronic kidney disease, or unspecified chronic kidney disease; D63.1 Anemia in chronic kidney disease; D63.0 Anemia in neoplastic disease; K59.00 Constipation, unspecified; M19.90 Unspecified osteoarthritis, unspecified site; K21.9 Gastro-esophageal reflux disease without esophagitis; E86.0 Dehydration; E78.5 Hyperlipidemia, unspecified; H40.9 Unspecified glaucoma; Z79.4 Long term (current) use of insulin; Z87.891 Personal history of nicotine dependence; E66.01 Morbid (severe) obesity due to excess calories; Z68.37 Body mass index [BMI] 37.0-37.9, adult
CPT/HCPCS: 36415; 38222; 71046; 76775; 80048; 80053; 80069; 81003; 82232; 82550; 82570; 82728; 82784; 82948; 83036; 83540; 83550; 83615; 83735; 83883; 83970; 84075; 84100; 84132; 84155; 84156; 84165; 84166; 84300; 84443; 84540; 84550; 85025; 85027; 85055; 85610; 85730; 86334; 86335; 88305; 88311; 88313; 88341; 88342; 88360; 88364; 88365; 93005; 96361; 96372; 96374; 96375; 99285; A9270; G0378; J0610; J0630; J1642; J1644; J1815; J2430; J3010; J7030; J7040; J7050; J7060; Q5105

== ENCOUNTER 2022-03-22 10:35 | Outpatient (CLI) | payer MEDICARE, SELFPAY ==
[2022-03-22 11:03] LABS: Glucose Point of Care 223 mg/dl (65-105)
== END 2022-03-22 10:36 | disposition home or self-care (01) ==
PROVIDERS: Visit Provider Internal Medicine Hematology & Oncology
DX: C90.00 Multiple myeloma not having achieved remission (principal)
CPT/HCPCS: 99199

== ENCOUNTER 2022-08-22 00:45 | Day surgery (SDC) | payer MEDICARE, SELFPAY ==
[2022-08-19 12:52] VITALS: BMI 39.4
--- NOTE | ~2022-08-22 | BM_ITS ---
EXAMINATION: CCL bone marrow asp w bx diag DATE: 08/22/2022 11:15 INDICATION: Multiple myeloma. TECHNIQUE: A time-out was performed to verify the patient's name, date of , and procedure to b e performed. The procedure including the risks, benefits, and alternatives was discussed with the pat ient. Risks discussed included bleeding and infection. The patient understood the risks and agreed to proceed. The skin overlying the left ilium was prepped and draped in usual sterile fashion. Anesth etic was administered with 1% lidocaine subcutaneously. Moderate sedation was achieved with 1 mg Vers ed IV and 50 mcg fentanyl IV. An 11 gauge needle was inserted into the ilium with fluoroscopic renae nce. Bone marrow was aspirated. An 8 gauge needle was then inserted into the ilium with fluoroscopic guidance. A core bone marrow biopsy was obtained. There were no immediate complications. Fluoroscopy exposure time was 0.0 minutes. The total number of images was 26. FINDINGS: Real-time fluoroscopy demonstrates a marker overlying the left posterior superior iliac spi ne. IMPRESSION: 1. Fluoro-guided bone marrow aspiration. 2. Fluoro-guided bone marrow core biopsy. Reviewed, dictated and finalized at location A. UNICATIONS FIELD TECHNICIAN
[2022-08-22 08:00] VITALS: BP 124/61; PULSE 84; RESP 15; TEMP 36.4; O2SAT 100; BMI 38.7
[2022-08-22 08:48] LABS: INR 1.1; Prothrombin Time 13.5 Seconds (11.1-14.7)
[2022-08-22 08:52] LABS: Basophils Absolute Auto 0.1 K/mm3 (0.0-0.1); Basophils Percent Auto 1.3 % (0.2-1.2); Eosinophils Absolute Auto 0.2 K/mm3 (0-0.3); Eosinophils Percent Auto 4.3 % (0-4.4); Hematocrit 33.2 % (42.0-52.0); Hemoglobin 10.4 g/dL (14.0-18.0); Immature Granulocyte Absolute 0.01 K/mm3 (0.00-0.031); Immature Granulocyte Percent A 0.2 % (0-0.5); Immature Platelet Fraction Pct 4.1 % (0.9-11.2); Lymphocytes Absolute Auto 2.34 K/mm3 (0.9-3.2); Lymphocytes Percent Auto 41.9 % (18.3-44.2); Mean Corpuscular HGB Conc 31.3 g/dl (32-36); Mean Corpuscular Volume 73.3 fl (80-100); Mean Platelet Volume 9.8 fl (7.4-10.4); Monocytes Absolute Auto 0.8 K/mm3 (0.1-0.6); Monocytes Percent Auto 14.3 % (2.6-8.5); Neutrophils Absolute Auto 2.1 K/mm3 (1.3-6.7); Platelet Count Result 239 k/mm3 (150-375); Red Blood Count 4.53 M/mm3 (4.6-6.20); Red Cell Distribution Width 23.1 % (11.5-14.5); White Blood Count 5.6 K/mm3 (4.5-10.0)
[2022-08-22 09:16] LABS: Anisocytosis 3+ (NORMAL); Microcytosis 1+ (NORMAL); Ovalocytes 1+ (NORMAL); Platelet Estimate Adequate (Adequate); Schistocytes Rare (NORMAL)
--- NOTE | 2022-08-22 09:20 | WPDMODSED ---
Moderate Sedation Note-Pt Data Patient Data Diagnosis: Multiple myeloma. Present Complaint: Multiple myeloma. Procedure to be performed/Plan: Fluoro-guided bone marrow biopsy of ilium. Allergies Allergy/AdvReac Type Severity Reaction Status Date / Time No Known Allergies Allergy Unknown Uncoded 08/22/22 09:02 Home Medications Medication Instructions Recorded Confirmed Type hydrocodone 5 mg-acetaminophen 325 1 tablet PO Q6H PRN pain #20 tabs 02/22/22 08/19/22 Rx mg tablet amlodipine 10 mg tablet 10 mg PO DAILY 02/24/22 08/22/22 History atorvastatin 80 mg tablet 80 mg PO HS 02/24/22 08/22/22 History insulin glargine U-300 conc 300 120 unit subcut HS 02/24/22 08/22/22 History unit/mL (3 mL) subcutaneous pen (Toujeo Max U-300 SoloStar) insulin lispro 200 unit/mL (3 mL) 45 unit subcut TID 02/24/22 08/22/22 History subcutaneous pen (Humalog KwikPen U-200 Insulin) latanoprost 0.005 % eye drops 1 drp EACH EYE HS 02/24/22 08/19/22 History lisinopril 40 mg tablet 40 mg PO DAILY 02/24/22 08/22/22 History metoprolol tartrate 50 mg tablet 50 mg PO BID 02/24/22 08/22/22 History triamterene 75 75 tablet PO DAILY 02/24/22 08/22/22 History mg-hydrochlorothiazide 50 mg tablet calcium carbonate 600 mg calcium 600 mg PO QID 06/30/22 08/22/22 History (1,500 mg) tablet (Calcium) cholecalciferol (vitamin D3) 25 25 mcg PO DAILY 06/30/22 08/22/22 History mcg (1,000 unit) capsule (Vitamin D3) ferrous sulfate 325 mg (65 mg 325 mg PO DAILY 06/30/22 08/22/22 History iron) tablet (iron) multivitamin (Daily Multi-Vitamin 1 tablet PO DAILY 07/12/22 08/22/22 History tablet) omega 3-dha 60 mg-epa 90 mg-fish 1 cap PO DAILY 07/12/22 08/22/22 History oil 500 mg capsule, delayed release (Fish Oil) allopurinol 100 mg tablet 100 mg PO DAILY 08/19/22 08/22/22 History Sedation/Anesthesia: No previous sedation/anesthesia problems (including family history). 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 Code status: Full code. Smoking packs per day: 1 Smoking cigarettes per day: 20.0 Years smoked: 10 Smoking pack-years: 10.00 Smoking status: Former smoker Tobacco type: cigarettes Second hand tobacco smoke exposure: No Alcohol intake: never Substance use: former Substance use type: does not use Last use: 1982 Lack of Transportation: No Lack of Food: Never True Current Housing: I Have Housing Concerned About Future Housing: No Difficulty Paying Gas/Electric Bills: No Difficulty Paying for Meds: No Currently Unemployed: No Education: Associate Degree Difficulty w/ Childcare or Family Care: No Living arrangements: with family Additional living arrangements comments: The patient lives with his , daughter, and grandson in [place]. Occupation/Education: retired Additional occupation/education comments: Retired from [employer]. Gender identity (if verbalized by the patient): Male Spiritual care concerns: No Mod Sed Physical Exam Physical Exam Pre Procedural Exam: Normal: Airway, Lungs, Heart Rate, Heart Rhythm and Abdomen Hours since solid foods: 10 Hours since liquid intake: 10 Mallampati Classification: class 1 Internal Medicine - PN: Obj Da Vital Signs Vital Signs: Vital Signs - 24 hr 08/22/22 08:00 Temperature 36.4 C L Pulse Rate 84 Respiratory Rate 15 Blood Pressure 124/61 Pulse Oximetry 100 Oxygen D
[2022-08-22 10:15] VITALS: BP 109/63; PULSE 78; RESP 17; O2SAT 99
[2022-08-22 10:30] VITALS: BP 103/55; PULSE 75; RESP 12; O2SAT 97
[2022-08-22 10:45] VITALS: BP 102/54; PULSE 77; RESP 18; O2SAT 99
[2022-08-22 11:00] VITALS: BP 125/67; PULSE 81; RESP 17; O2SAT 100
[2022-08-22 11:15] VITALS: BP 120/82; PULSE 77; RESP 17; O2SAT 97
== END 2022-08-22 11:20 | disposition home or self-care (01) ==
PROVIDERS: Referring Provider Internal Medicine Hematology & Oncology; Visit Provider Radiology Diagnostic Radiology
DX: C90.00 Multiple myeloma not having achieved remission (principal); I12.9 Hypertensive chronic kidney disease with stage 1 through stage 4 chronic kidney disease, or unspecified chronic kidney disease; E11.22 Type 2 diabetes mellitus with diabetic chronic kidney disease; N18.9 Chronic kidney disease, unspecified; E78.5 Hyperlipidemia, unspecified; D64.9 Anemia, unspecified; H40.9 Unspecified glaucoma; Z87.891 Personal history of nicotine dependence; Z79.4 Long term (current) use of insulin; Z79.891 Long term (current) use of opiate analgesic
CPT/HCPCS: 36415; 38222; 85025; 85055; 85610; 88184; 88185; 88305; 88311; 88342; 88364; 88365; J1642; J2250; J3010; J7040

== ENCOUNTER 2023-06-13 12:04 | Outpatient (CLI) | payer MEDICARE, SELFPAY ==
--- NOTE | ~2023-06-13 | PE_ITS ---
EXAMINATION: PET skull to mid thigh DATE: 06/13/2023 14:14 INDICATION: Multiple myeloma not having achieved remission TECHNIQUE: Blood glucose level was 153 mg/dL. 10.553 mCi of 18-fluorodeoxyglucose (18-FDG) was admini stered i.v. Low dose computed tomography (CT) images were acquired from the base of the brain to the proximal thighs for attenuation correction and anatomic localization. Positron emission tomography (P ET) images were acquired in the same distribution beginning 64 minutes after injection. Images includ ing fused PET/CT images were reconstructed in axial, coronal, and sagittal planes. Automated exposure control technique was employed. The dose-length product was 1345.75mGy-cm. COMPARISON: CT abdomen pelvis dated 02/07/[address] right shoulder dated 02/22/2022 FINDINGS: Head/neck: There is symmetric increased activity in the oral cavity, lingual tonsils, laryngeal muscles and ocul ar muscles without CT correlate, likely physiologic. No pathologically enlarged cervical lymphadenopa thy or suspicious foci of increased FDG uptake in the visualized head or neck. Chest: Mild atelectasis in the dependent lungs likely related to expiratory phase of imaging. No suspicious pulmonary nodules, pneumonia, pulmonary edema or other pulmonary infiltrates. No pleural effusion. He art size is normal. No pericardial effusion. Thoracic aorta is normal in caliber. No pathologically e nlarged or FDG avid thoracic lymphadenopathy. Abdomen/pelvis/proximal thighs: Physiologic renal accumulation and excretion of FDG activity in the kidneys, bladder and along portio ns of ureters. There are photopenic defects in both kidneys correspond to several low attenuation sim ple and higher attenuation complex proteinaceous/hemorrhagic bilateral renal cysts, the largest simpl e cyst in the left kidney measuring up to 2.5 cm. Normal degree and heterogenous pattern of increased uptake throughout the liver without radiologic correlate or dominant FDG avid lesion. The gallbladde r, pancreas, spleen and bilateral adrenal glands are normal. Mild uptake scattered throughout the bow els without radiologic correlate, also likely physiologic. Prostatomegaly measuring 5.9 x 5.8 cm. No other abnormal foci of increased soft tissue FDG uptake or pathologically enlarged lymphadenopathy in the abdomen, pelvis or proximal thighs. Musculoskeletal: There are numerous scattered lytic bone lesions throughout the axial and appendicular skeleton,, the majority without discernible FDG uptake. There is focal mild uptake associated with a few of the lesi ons in the lower lumbar spine and pelvis. The most intense included L4 vertebral body with maximal MTZ V of 3.7, at the base of the left transverse process of L5 with maximal SUV of 3.5. At the left poste rior iliac spine near the site of the prior biopsies with maximal SUV of 3.4, and the S1 vertebral bobby dy with maximal SUV of 3.1, the left ischial with maximal SUV of 2.9 and in the subtrochanteric proxi mal right femur with maximal SUV of 2.7. There is mild uptake with maximal SUV of 2.5 associated with a healing prior pathologic fracture at the base of the right acromial process with resolution of the prior osteolysis. IMPRESSION: 1. Numerous scattered lytic bone lesions throughout the axial and appendicular skeleton, the majority without evident FDG uptake just with response to treatment. There are however a few of the lytic les ions in the pelvis and lower lumbar spine which demonstrate mild FDG uptake with maximal SUV levels f rom 2.9-3.7 consistent with small amount of likely residual ongoing disease. 2. Prostatomegaly. Reviewed, dictated and finalized at location A. [facility] OUTREACH WORKER
[2023-06-13 12:23] LABS: Glucose Point of Care 153 mg/dl (65-105)
== END 2023-06-13 12:05 | disposition home or self-care (01) ==
PROVIDERS: Visit Provider Internal Medicine Hematology & Oncology
DX: C90.00 Multiple myeloma not having achieved remission (principal); N40.0 Benign prostatic hyperplasia without lower urinary tract symptoms; M89.9 Disorder of bone, unspecified
CPT/HCPCS: 78815; A9552

== ENCOUNTER 2023-07-06 01:21 | Day surgery (SDC) | payer MEDICARE, SELFPAY ==
[2023-06-27 14:58] VITALS: BMI 37.6
--- NOTE | 2023-07-04 12:26 | SUR.PREOP ---
Patient called regarding upcoming procedure. Reviewed preop instructions, appointment times, and procedure prep.
[2023-07-06 12:39] VITALS: BP 146/67; PULSE 81; RESP 18; TEMP 36.5; O2SAT 97; BMI 37.5
[2023-07-06] MEDS: LACTATED RINGERS 1,000 ML 150 ML IV CONT (12:55)
--- NOTE | 2023-07-06 12:59 | WPDANESEPPF ---
Anes - Initial Pre Proc Eval Procedure: Operation Date: 07/06/23 13:30 Proposed Procedures p Colonoscopy - Oneal Buckley MD Date/Time: 07/06/23 12:59 Surgeon: Oneal Buckley MD Pre Op Diagnosis: chronic blood loss, anemia Patient Data Age: 72 Gender: M Height: 1.8 m Weight: 122.2 kg Last Vital Signs Temp 97.7 F 07/06/23 12:39 Pulse 81 07/06/23 12:39 Resp 18 07/06/23 12:39 BP 146/67 H 07/06/23 12:39 Pulse Ox 97 07/06/23 12:39 O2 Del Method Room Air 07/06/23 12:39 Allergies Allergy/AdvReac Type Severity Reaction Status Date / Time No Known Allergies Allergy Unknown Uncoded 07/06/23 12:33 Home Medications Medication Instructions Recorded Confirmed Type amlodipine 10 mg tablet 10 mg PO DAILY 02/24/22 07/06/23 History atorvastatin 80 mg tablet 80 mg PO HS 02/24/22 07/06/23 History insulin lispro 200 unit/mL (3 mL) 18 unit subcut TID 02/24/22 07/06/23 History subcutaneous pen (Humalog KwikPen U-200 Insulin) latanoprost 0.005 % eye drops 1 drp EACH EYE HS 02/24/22 07/06/23 History metoprolol tartrate 50 mg tablet 50 mg PO BID 02/24/22 07/06/23 History triamterene 75 75 tablet PO DAILY 02/24/22 07/06/23 History mg-hydrochlorothiazide 50 mg tablet cholecalciferol (vitamin D3) 25 25 mcg PO DAILY 06/30/22 07/06/23 History mcg (1,000 unit) capsule (Vitamin D3) ferrous sulfate 325 mg (65 mg 325 mg PO DAILY 06/30/22 07/06/23 History iron) tablet (iron) omega 3-dha 60 mg-epa 90 mg-fish 1 cap PO DAILY 07/12/22 07/06/23 History oil 500 mg capsule, delayed release (Fish Oil) allopurinol 100 mg tablet 100 mg PO DAILY 08/19/22 07/06/23 History insulin glargine 100 unit/mL 50 unit subcut DAILY 04/05/23 07/06/23 History subcutaneous cartridge potassium chloride 10 mEq 10 meq PO DAILY #30 tabs 04/07/23 07/06/23 Rx tablet,extended release (Klor-Con) sodium,potassium,mag sulfates 17.5 See Rx Instructions PO .COMPLEX 06/27/23 07/06/23 Rx gram-3.13 gram-1.6 gram oral soln #354 mL (Suprep Bowel Prep Kit) Patient hx anesthesia problems: none Family hx anesthesia problems: none Results Review: All pre-operative results and documents have been reviewed as part of the pre-operative evaluation. 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 Code status: Full code. Smoking packs per day: 1 Smoking cigarettes per day: 20.0 Years smoked: 10 Smoking pack-years: 10.00 Smoking status: Former smoker Tobacco type: cigarettes Second hand tobacco smoke exposure: No Alcohol intake: never Substance use: former Substance use type: does not use Last use: 1982 Lack of Transportation: No Lack of Food: Never True Current Housing: I Have Housing Concerned About Future Housing: No Difficulty Paying Gas/Electric Bills: No Difficulty Paying for Meds: No Currently Unemployed: No Education: Associate Degree Difficulty w/ Childcare or Family Care: No Living arrangements: other Additional living arrangements comments: with sp Occupation/Education: retired Additional occupation/education comments: Retired from [employer]. Gender identity (if verbalized by the patient): Male Spiritual care concerns: No Anes - Eval Final PreProcedure Day of Procedure 07/06/23 12:59 Patient weight: obese Heart: regular rate and rhythm Lungs: clear to auscultation Airway: Mallampati scale class II Neurol
[2023-07-06 13:01] LABS: Glucose Point of Care 144 mg/dl (65-105)
--- NOTE | 2023-07-06 13:17 | PM.HPGS ---
History of Present Illness History of Present Illness Consent: Risks, benefits, and alternatives have been discussed and questions answered. Patient agrees to proceed with procedure. Chief complaint: anemia Narrative: Willam Mendoza is a 72 year old male Referred for colonoscopy. Patient has a history of multiple myeloma. Underwent a bone marrow transplant. Patient reports irregular bowel habits. He denies any obvious blood in his stools. He has no obvious bleeding elsewhere. He denies abdominal pain. Patient has been found to have anemia and for this reason referred for colonoscopy. Patient's family history is noncontributory. Review of Systems Review of Systems: Review of systems noncontributory. 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 Code status: Full code. Smoking packs per day: 1 Smoking cigarettes per day: 20.0 Years smoked: 10 Smoking pack-years: 10.00 Smoking status: Former smoker Tobacco type: cigarettes Second hand tobacco smoke exposure: No Alcohol intake: never Substance use: former Substance use type: does not use Last use: 1982 Lack of Transportation: No Lack of Food: Never True Current Housing: I Have Housing Concerned About Future Housing: No Difficulty Paying Gas/Electric Bills: No Difficulty Paying for Meds: No Currently Unemployed: No Education: Associate Degree Difficulty w/ Childcare or Family Care: No Living arrangements: other Additional living arrangements comments: with sp Occupation/Education: retired Additional occupation/education comments: Retired from [employer]. Gender identity (if verbalized by the patient): Male Spiritual care concerns: No Meds Home Medications and Allergies Home Medications Medication Instructions Recorded Confirmed Type amlodipine 10 mg tablet 10 mg PO DAILY 02/24/22 07/06/23 History atorvastatin 80 mg tablet 80 mg PO HS 02/24/22 07/06/23 History insulin lispro 200 unit/mL (3 mL) 18 unit subcut TID 02/24/22 07/06/23 History subcutaneous pen (Humalog KwikPen U-200 Insulin) latanoprost 0.005 % eye drops 1 drp EACH EYE HS 02/24/22 07/06/23 History metoprolol tartrate 50 mg tablet 50 mg PO BID 02/24/22 07/06/23 History triamterene 75 75 tablet PO DAILY 02/24/22 07/06/23 History mg-hydrochlorothiazide 50 mg tablet cholecalciferol (vitamin D3) 25 25 mcg PO DAILY 06/30/22 07/06/23 History mcg (1,000 unit) capsule (Vitamin D3) ferrous sulfate 325 mg (65 mg 325 mg PO DAILY 06/30/22 07/06/23 History iron) tablet (iron) omega 3-dha 60 mg-epa 90 mg-fish 1 cap PO DAILY 07/12/22 07/06/23 History oil 500 mg capsule, delayed release (Fish Oil) allopurinol 100 mg tablet 100 mg PO DAILY 08/19/22 07/06/23 History insulin glargine 100 unit/mL 50 unit subcut DAILY 04/05/23 07/06/23 History subcutaneous cartridge potassium chloride 10 mEq 10 meq PO DAILY #30 tabs 04/07/23 07/06/23 Rx tablet,extended release (Klor-Con) sodium,potassium,mag sulfates 17.5 See Rx Instructions PO .COMPLEX 06/27/23 07/06/23 Rx gram-3.13 gram-1.6 gram oral soln #354 mL (Suprep Bowel Prep Kit) Allergies Allergy/AdvReac Type Severity Reaction Status Date / Time No Known Allergies Allergy Unknown Uncoded 07/06/23 12:33 Vital Signs Vital Signs - 24 hr 07/06/23 12:39 Temperature 97.7 F Pulse Rate 81 Respiratory Rate 18 Blood Pressure 146/67 H P
[2023-07-06 13:42] VITALS: BP 107/51; PULSE 76; RESP 18; O2SAT 97
[2023-07-06 13:52] VITALS: BP 115/72; PULSE 72; RESP 20; O2SAT 100
[2023-07-06 14:02] VITALS: BP 130/79; PULSE 76; RESP 20; O2SAT 100
== END 2023-07-06 14:17 | disposition home or self-care (01) ==
PROVIDERS: Referring Provider Internal Medicine Hematology & Oncology; Visit Provider Internal Medicine Gastroenterology
PROC: 0DJD8ZZ Inspection of Lower Intestinal Tract, Via Natural or Artificial Opening Endoscopic (ICD-10-PCS; CPT 45378; principal; 2023-07-06 13:30)
DX: D64.9 Anemia, unspecified (principal); C90.00 Multiple myeloma not having achieved remission; C79.51 Secondary malignant neoplasm of bone; K64.8 Other hemorrhoids; N18.9 Chronic kidney disease, unspecified; E78.5 Hyperlipidemia, unspecified; I12.9 Hypertensive chronic kidney disease with stage 1 through stage 4 chronic kidney disease, or unspecified chronic kidney disease; E11.22 Type 2 diabetes mellitus with diabetic chronic kidney disease; Z87.891 Personal history of nicotine dependence
CPT/HCPCS: 45378; 82948; J2704; J7120

== ENCOUNTER 2024-06-27 09:16 | Outpatient (CLI) | payer MEDICARE, SELFPAY ==
--- NOTE | ~2024-06-27 | PE_ITS ---
EXAMINATION: PET skull to mid thigh DATE: 06/27/2024 11:38 INDICATION: Multiple myeloma. TECHNIQUE: Blood glucose level was 119 mg/dL. 9.550 mCi of 18-fluorodeoxyglucose (18-FDG) was adminis tered i.v. Low dose computed tomography (CT) images were acquired from the base of the brain to the p roximal thighs for attenuation correction and anatomic localization. Automated exposure control was e mployed. Dose-length product (DLP) was 1374 mGy-cm. Positron emission tomography (PET) images were ac quired in the same distribution. COMPARISON: PET/CT 06/13/2023 FINDINGS: Head/neck: There are no pathologically enlarged lymph nodes. Chest: The lungs demonstrate mild atelectasis. No pleural effusion. The heart size is normal. No agustina cardial effusion. There are numerous scattered lytic lesions of bone with increased activity in some of the lesions. Abdomen/pelvis/proximal thighs: The liver, gallbladder, spleen, pancreas, adrenal glands, and left ki dney are normal. There is a 2.1 cm cyst in right kidney. The prostate is moderately enlarged. There a re no dilated loops of bowel. The appendix is normal. There are no pathologically enlarged lymph node s. There is no free intraperitoneal fluid. There are widespread lytic lesions of bone with increased activity in some of the lesions. IMPRESSION: 1. Stable size and distribution of widespread lytic lesions of bone with increased activity in some o f the lesions, consistent with multiple myeloma. Reviewed, dictated and finalized at location A. STOCK BRANDS INSPECTOR IMPRESSION: 1. Stable size and distribution of widespread lytic lesions of bone with increa sed activity in some of the lesions, consistent with multiple myeloma.
[2024-06-27 09:40] LABS: Glucose Point of Care 119 mg/dl (65-105)
== END 2024-06-27 09:17 | disposition home or self-care (01) ==
PROVIDERS: Visit Provider Internal Medicine Hematology & Oncology
DX: C90.00 Multiple myeloma not having achieved remission (principal)
CPT/HCPCS: 78815; A9552

== ENCOUNTER 2025-04-05 09:37 | Emergency (ER) | payer MEDICARE, SELFPAY ==
--- NOTE | ~2025-04-05 | CT_ITS ---
EXAMINATION: CT facial bones wo con COMPARISON: None HISTORY: left jaw swelling, possible abscess TECHNIQUE: Axial images were obtained without IV contrast. Sagittal, coronal reconstruction images were obtained from the axial views. CT scan performed using dose optimization techniques including the following automated exposure control; adjustment of mA and/or kV; use of iterative reconstruction technique. Automatic exposure control was used to reduce radiation dose. Permanent radiation dose record is archived to PACS. FINDINGS: The nasal bones are intact. The bony nasal septum is intact. The anterior maxillary sinus august and zygomatic arches are intact. Temporomandibular joints, orbital floors and medial orbits are intact. No significant sinusitis. Visualized brain parenchyma unremarkable. No retrobulbar hemorrhage or preseptal soft tissue swelling. There is soft tissue swelling noted overlying the left mandible. No significant dental disease is noted with no gross abscess identified. IMPRESSION: Soft tissue swelling consistent with probable cellulitis. No abscess identified. Follow-up suggested to assess as clinically warranted Reviewed, dictated and finalized at location P. IMPRESSION: Soft tissue swelling consistent with probable cellulitis. No absces s identified. Follow-up suggested to assess as clinically warranted
[2025-04-05 09:40] VITALS: BP 127/71; PULSE 106; RESP 18; TEMP 37.1; O2SAT 100
--- OUTSIDE RECORDS SUMMARY | 2025-04-05 09:40 | XMS_ITS | Encounter Summary ---
Author Organization [facility] Address [address] [place] [address] Phone Care Team Providers Care Marketing Research Intern Name Role Phone James Thomas MD Unavailable [phone] Justin Noble MD Primary Care Provider [phone] Encounter Details Date Type Department Care Team (Latest Contact Info) Description 06/13/2023 Orders Only [facility] Scanning, Provider Social History Tobacco Use Types Packs/Day Years Used Date Smoking Tobacco: Former Cigarettes 1 7 0 12/09/1979 - 12/08/1986 Smokeless Tobacco: Never Social Connection and Isolation Panel Answer Date Recorded In a typical week, how many times do you talk on the phone with family, friends, or neighbors? More than three times a week 02/08/2023 How often do you get togethe r with friends or relatives? More than three times a week 02/08/2023 How often do you attend chur ch or mu-ism services? More than 4 times per year 02/08/2023 Do you belong to any clubs o r organizations such as yazdanism groups, unions, fraternal or athletic groups, or school groups? No 02/08/2023 How often do you attend meet ings of the clubs or organizations you belong to? Never 02/08/2023 Are you , , di vorced, , never , or living with a partner? 02/08/2023 Overall Financial Resource Strain (CARDIA) Answe r Date Recorded How hard is it for you to pa y for the very basics like food, housing, medical care, and heating? Not hard at all 02/08/2023 PHQ-2 Answer Date Recorded PHQ-2 Total Score 0 02/08/2023 Hunger Vital Sign Answer Date Recorded Within the past 12 months, y ou worried that your food would run out before you got the money to buy more. Never true 02/09/20 23 Within the past 12 months, t he food you bought just didn't last and you didn't have money to get more. Never true 02/08/2023 PRAPARE - Transportation Answer Date Re corded In the past 12 months, has l ack of transportation kept you from medical appointments or from getting medications? No 08/2022 In the past 12 months, has l ack of transportation kept you from meetings, work, or from getting things needed for daily living? No 02/08/2023 Housing Stability Vital Sign Answer Brayan e Recorded In the last 12 months, was t here a time when you were not able to pay the mortgage or rent on time? No 02/08/2023 In the last 12 months, how many places have you lived? 1 02/08/2023 In the last 12 months, was t here a time when you did not have a steady place to sleep or slept in a fci (including now)? No 02/08/2023 Personal Safety Answer Date Recorded Have you ever been in or are you currently in a harmful physical or emotional relationship or is someone making you feel afraid or unsafe? Denies 02/27/2023 Sex and Gender Information Value Date Recorded Sex Assigned at Not on file Legal Sex Male 5:33 PM CLAIMS SERVICE REPRESENTATIVE Gender Identity Not on file Sexual Orientation Not on file documented as of this encounter Plan of Treatment Not on file documented as of this encounter Procedures Procedure Name Priority Date/Time Associated Diagnosis Comments SCAN - RADIOLOGY/IMAGING 06/13/2023 documented in this encounter Results * SCAN - RADIOLOGY/IMAGING (06/13/2023) Anatomical Region Laterality Modality Other us Provider Scanning Final Result documented in this encounter Visit Diagnoses Not on filedocumented in this encounter Care Teams Marketing Research Intern Relationship Specialty Start Date End Date Justin Noble MD [address] [place] [address] PCP - General Family Medicine 09/07/22 James Thomas MD [address] [address] Referring Physician Hematology 09/02/22 documented as of this encounter
--- OUTSIDE RECORDS SUMMARY | 2025-04-05 09:40 | XMS_ITS | Encounter Summary ---
Author Organization [facility] [employer] Address [address] [place] [address] Care Team Providers Care Law Firm Consultant Name Role Phone Justin Noble MD Primary Care Provider [phone] Reason for Visit * Reason Comments Med Refill Encounter Details Date Type Department Care Team ([facility] Contact Info) Description 09/04/2022 Refill [facility] ([facility] Oncology and Hematology - [address] [place] [address] James Thomas MD [email or web address] [place] [address] Multiple myeloma not having achieved remission (CMS/HCC) Social History Tobacco Use Types Packs/Day Years Used Date Smoking Tobacco: Former Cigarettes Smokeless Tobacco: Never Alcohol Use Standard Drinks/Week Comments Yes 0 (1 standard drink = 0.6 oz pur e alcohol) ocassionally Sex and Gender Information Value Date Recorded Sex Assigned at Not on file Legal Sex Male 10:04 AM CDT Gender Identity Not on file Sexual Orientation Not on file COVID-19 Exposure Response Date Recorded In the last 10 days, have yo u been in contact with someone who was confirmed or suspected to have Coronavirus/COVID-19? No / Unsure 08/31/2022 9:11 AM SYSTEM ANALYST documented as of this encounter Plan of Treatment Upcoming Encounters Date Type Department Care Team ([facility] Contact Info) Description 04/07/2025 Orders Only [facility] ([facility] Oncology and Hematology - [address] [place] [address] James Thomas MD [email or web address] [place] [address] Multiple myeloma not having achieved remission (CMS/HCC) 05/21/2025 8:30 AM SYSTEM ANALYST Office Visit [facility] ([facility] Oncology and Hematology [facility] [address] [place] [address] Diane Cantu MD [address] [place] [address] documented as of this encounter Visit Diagnoses Diagnosis Multiple myeloma not having achieved remission (CMS/HCC) Multiple myeloma, without mention of having achieved remission Multiple myeloma not having achieved remission (CMS/HCC) Multiple myeloma, without mention of having achieved remission documented in this encounter Care Teams Law Firm Consultant Relationship Specialty Start Date End Date Justin Noble MD PCP - General Family Practice 03/09/22 documented as of this encounter
--- OUTSIDE RECORDS SUMMARY | 2025-04-05 09:40 | XMS_ITS | Clinical Summary ---
Author Organization [facility] 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 Name Role Phone James Thomas MD Unavailable [phone] Justin Noble MD Primary Care Provider [phone] Allergies No known active allergies Medications allopurinoL (ZYLOPRIM) 100 mg tabletIndicati ons:Multiple myeloma not having achieved remission (HCC) Take 1 tablet (100 mg total) by mouth daily 04/04/20 22 Active amLODIPine (NORVASC) 10 mg tabletIndicati ons:Multiple myeloma not having achieved remission (HCC) Take 1 tablet (10 mg total) by mouth daily 01/18/20 22 Active atorvastatin (LIPITOR) 80 mg tabletIndicati ons:Multiple myeloma not having achieved remission (HCC) Take 1 tablet (80 mg total) by mouth nightly 03/06/20 22 Active OneTouch Verio test strips stripIndicatio ns:Multiple myeloma not having achieved remission (HCC) TEST THREE TIMES DAILY BEFORE MEALS 07/24/19 23 Active OneTouch Delica Plus Lancet 33 gauge miscIndication s:Multiple myeloma not having achieved remission (HCC) USE TO CHECK BLOOD SUGAR FOUR TIMES DAILY 06/28/20 22 Active BD Ultra-Fine Short Pen Needle 31 gauge x 16 needleIndicati ons:Multiple myeloma not having achieved remission (HCC) USE TO INJECT FOUR TIMES DAILY 09/06/19 23 Active triamterene-hy droCHLOROthiaz jose martin (MAXZIDE,DYAZI DE) 75-50 mg per tabletIndicati ons:Multiple myeloma not having achieved remission (HCC) Take 1 tablet by mouth daily 03/07/20 Active latanoprost (XALATAN) 0.005 % ophthalmic solutionIndica tions:Multiple myeloma not having achieved remission (HCC) INSTILL 1 DROP INTO BOTH EYES EVERY NIGHT AT BEDTIME IN PLACE OF [facility] 01/02/20 Active insulin lispro (HumaLOG, ADMELOG) 100 unit/mL pen for injection Inject 1-3 Units under the skin 3 (three) times a day with meals (1 unit for every 50 mg/dL blood glucose greater than 200 mg/dL up to max 3 units) Refer to After Visit Summary for Sliding Scale Insulin Instructions. 15 mL 02/22/20 Active Additional Information Patient taking differently: 34 Unitssubcutaneous 3 times daily with meals,(No instructions reported), Reported on 03/05/2024 pen needle, diabetic 31 gauge x 11/22 needle Use to inject 1-4 times daily as directed. 300 each 4 02/22/20 Active insulin glargine (TOUJEO) 300 unit/mL (1.5 mL) pen for injection Inject 86 Units under the skin nightly Active Active Problems Patient Care Coordination No te Formatting of this note is d ifferent from the original. BMT Inpatient Care Coordination Overview Diagnosis MM Floor Treatment Plan Melph Reason for Admission Auto Transplant/IEC Planning BMT/IEC Plan Auto 02/08/2023 HLA typing/IDMs [] Insurance Approval [] Discharge Planning Anticipated Discharge Date 02/22 Patient Education Completed [x] DC ed/bag to pt and discussed upcoming appt Issue to be Resolved Before Discharge Discharge Disposition home Requests Sent to Case Management, Pharmacy PA Team, or Medical Assistants Post-Discharge Follow-Up Living Situation/Distance from [facility] 30 min Caregiver Lab/Transfusion Frequency Venous Access & Care tunneled central venous catheter Local Oncologist Contact Phone: Fax: Post-Discharge Office Visit (H30) [place] 02/27 Miscellaneous Notes: Problem Noted Date Diagnosed Date Hx of autologous stem cell transplant 07/01/2024 Chemotherapy-induced neutropenia 02/27/2023 History of multiple myeloma 02/06/2023 Obesity, morbid 01/23/2023 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 Other secondary hypertension 10/19/2022 Diabetes mellitus type 2, controlled 10/19/2022 Dyslipidemia 10/19/2022 Multiple myeloma 03/09/2022 Hyperlipidemia associated with type 2 diabetes nicki leonard 03/02/2020 Overview (02/07/2023): Justin Noble MD 11/26/2019 Obstructive sleep apnea syndrome 12/12/2014 Encounters Date Type Department Care Team Description 02/25/2025 11:30 AM CDT Office Visit [facility] Medicine Bone Marrow Transplant [address] [facility] [address] [place] [id number] Kena Torres, TIM Multiple myeloma in remission (HCC) (Primary Dx) 02/25/2025 11:00 AM CDT Lab [facility] - Lab Collection [address] [facility] [address] [place] [address] Multiple myeloma in remission (HCC) 02/25/2025 10:30 AM CDT Lab [facility] Medicine Oncology Lab [facility] [address] [place] [address] Multiple myeloma in remission (HCC) from Last 3 Months Immunizations Immunization Administration Dates Next Due Influenza, Quad, Adjuvantate d, Intramuscular 05/11/2021 Influenza, Quadrivalent, Hig h Dose, Preservative Free, Intrr 04/20/2022,05/11/2021,04/09/2020,04/04,04/05/2018,08/20/2017 Influenza, Quadrivalent, Spl it, Intramuscular 05/11/2021 Influenza, Quadrivalent, Spl it, Preservative Free, Intramuscular 03/24/2016,07/23/2015,06/13/2014 Influenza, Trivalent, High D ose, Split, Preservative Free, Intramuscular 04/09/2020,04/04/2019,04/05/2018,08/20 Influenza, Unspecified 04/20/2022,05/11/2021,05/2018 Pneumococcal Conjugate PCV 13 11/19/2015 Pneumococcal Polysaccharide PPV23 06/13/2014 Td, Unspecified 04/16/2019 Td, adsorbed 04/16/2019 Tdap 06/13/2014 Surgical History Surgery Date Site/Laterality Comments TUNNELED LINE PLACEMENT > 5 YEARS 01/30/2023 N/A REMOVE TUNNELED LINE 02/27/2023 Left Medical History Medical History Date Comments Sleep apnea Hypertension Type 2 diabetes mellitus History of multiple myeloma 02/06/2023 Obstructive sleep apnea syndrome 12/12/2014 Obesity, morbid 01/23/2023 Multiple myeloma 03/09/2022 Hyperlipidemia associated wi th type 2 diabetes mellitus (HCC) 03/02/2020 Formatting of this note migh t be different from the original. Justin Noble MD 11/26/2019 Other secondary hypertension 10/19/2022 Dyslipidemia 10/19/2022 Diabetes mellitus type 2, controlled 10/19/2022 Family History Medical History Relation Name Comments Heart failure Father Heart failure Mother Relation Name Status Comments Father Mother Social History Tobacco Use Types Packs/Day Years Used Date Smoking Tobacco: Former Cigarettes 1 7 0 12/09/1979 - 12/08/1986 Smokeless Tobacco: Never Tobacco Cessation:Counseling Given: Not Answered Social Connection and Isolation Panel Answer Date Recorded In a typical week, how many times do you talk on the phone with family, friends, or neighbors? More than three times a week 02/08/2023 How often do you get togethe r with friends or relatives? More than three times a week 02/08/2023 How often do you attend chur ch or presybeterian services? More than 4 times per year 02/08/2023 Do you belong to any clubs o r organizations such as yazidism groups, unions, fraternal or athletic groups, or [...] place to sleep or slept in a detention (including now)? No 02/08/2023 Personal Safety Answer Date Recorded Have you ever been in or are you currently in a harmful physical or emotional relationship or is someone making you feel afraid or unsafe? Denies 02/27/2023 Sex and Gender Information Value Date Recorded Sex Assigned at Not on file Legal Sex Male 5:33 PM CLAIMS AGENT RIGHT OF WAY Gender Identity Not on file Sexual Orientation Not on file Obstetrics History Last Filed Vital Signs Vital Sign Reading Time Taken Comments Blood Pressure 124/72 02/25/2025 11:47 AM CDT Pulse 94 02/25/2025 11:47 AM CDT Temperature 36.4 C (97.5 F) 02/25/2025 11:47 AM CDT Respiratory Rate 18 02/25/2025 11:47 AM CDT Oxygen Saturation 97% 02/25/2025 11:47 AM CDT Inhaled Oxygen Concentration - - Weight 130.6 kg (288 lb) 02/25/2025 11:47 AM CDT Height 181.6 cm (5' 11.5) 02/06/2023 3:01 PM CD T Body Mass Index 39.61 02/06/2023 3:01 PM CDT Plan of Treatment Health Maintenance Due Date Last Done Comments Albumin Creatinine Ratio, Urine 1950 Hepatitis C Screening 1950 Dilated Eye Exam 1950 Foot Exam 1950 Abdominal Aortic Aneurysm (A AA) Screen 2013 Well Visit 65+ 2013 Hemoglobin A1C 07/12/2023 01/09/2023, 06/1 09/2022, 11/20/2020, Additional history exists Depression Screening 02/01/2024 01/31/2023 Fall Risk Assessment 02/28/2024 02/27/2023 Lipid Panel 08/11/2024 08/11/2023, 07/0 09/2022, 12/20/2022 Covid-19 Vaccine (7 - Modern a risk ) 03/10/2025 06/28/2024, 05/28/2024, 04/23/2024, Additional history exists Influenza Vaccine (#1) 2025 , 05/26/2023, 04/07/2023, Additional history exists eGFR 02/25/2026 02/25/2025, 02/08, 05/23/2023, Additional history exists DTaP/Tdap/Td Vaccine (7 - Td or Tdap) 01/13/2035 01/13/2025, 05/28/2024, 04/30/2024, Additional history exists Zoster Vaccine Completed 06/28/2024, 04/30/2024 Hepatitis B Screening Completed 01/13/2025 , 05/28/2024, 04/30/2024 Pneumococcal vaccine 65+ Completed 025, 06/28/2024, 05/28/2024, Additional history exists Procedures Procedure Name Priority Date/Time Associated Diagnosis Comments EGFR Routine 02/25/2025 11:39 AM CDT Multiple myeloma in remission (HCC) DIFFERENTIAL AUTO Routine 02/25/2025 11: 39 AM CDT Multiple myeloma in remission (HCC) CBC WITH AUTO DIFFERENTIAL Routine 02/25/2025 11:39 AM CDT Multiple myeloma in remission (HCC) COMPREHENSIVE METABOLIC PANEL Routine 02/25/2025 11:39 AM CDT Multiple myeloma in remission (HCC) IGA Routine 02/25/2025 11:39 AM CDT Multiple myeloma in remission (HCC) IGG Routine 02/25/2025 11:39 AM CDT Multiple myeloma in remission (HCC) IGM Routine 02/25/2025 11:39 AM CDT Multiple myeloma in remission (HCC) IMMUNOGLOBULIN FREE LIGHT CHAINS Routine 02/25/2025 11:39 AM CDT Multiple myeloma in remission (HCC) LACTATE DEHYDROGENASE Routine 02/25/2025 11:39 AM CDT Multiple myeloma in remission (HCC) PROTEIN ELECTROPHORESIS, WITH REFLEX, SERUM Routine 02/25/2025 11:39 AM CDT Multiple myeloma in remission (HCC) HEMOGLOBIN A1C Routine 01/09/2023 11:08 AM CDT Multiple myeloma, remission status unspecified (HCC) LIPID PANEL Routine 01/09/2023 11:08 AM CDT Multiple myeloma, remission status unspecified (HCC) from Last 3 Months or Most Recently Relevant to Health Maintenance Results * (ABNORMAL) eGFR (02/25/2025 11:39 AM CDT) eGFR 33(L) >=60 mL/min/1. 73 m2 Comment: Interpretive Data Reference Interval Normal >/= 90 mL/min/1.73m2 Mildly decreased* 60 - 89 mL/min/1.73m2 Mildly to moderately decreased 45 - 59 mL/min/1.73m2 Moderately to severely decreased 30 - 44 mL/min/1.73m2 Severely decreased 15 - 29 mL/min/1.73m2 Kidney Failure < 15 mL/min/1.73m2 *Relative to young adult level Estimated glomerular filtration rate is determined by the 2020 CKD-EPI equation recommended by the National Kidney Foundation (A Unifying Approach to GFR Estimation: Recommendations of the NKF-ASK Task Force on Reassessing the Inclusion of Race in Diagnosing Kidney Disease, JASN 2020). The CKD-EPI equation should not be used for patients with unstable renal function and has not been validated in children and those over 70. Current interpretive data was last reviewed 2021. Blood 02/25/2025 11:3 9 AM CDT 02/25/2025 11:52 AM CDT Juan José Garcia MD LAB BLOOD ORDER VAUGHN Final Result [facility] Department [place] [address] * Differential, auto (02/25/2025 11:39 AM CDT) Neutrophil abs 2.25 1.50 - 6.50 K/cumm Comment:Testing performed by : [facility] Heme Lab, [address] [place], [place] [phone] Lymphocyte abs 2.29 0.80 - 3.30 K/cumm [facility] Comment:Testing performed by : [facility]e [facility], [address] [place], [place] [phone] Monocyte abs 0.46 0.20 - 0.80 K/cumm [facility] Comment:Testing performed by : [facility]e [facility], [address] [place], [place] [phone] Eosinophil abs 0.15 0.00 - 0.50 K/cumm [facility] Comment:Testing performed by : [facility] Heme [facility], [address] [place] [phone] Basophil abs 0.04 0.00 - 0.10 K/cumm [facility] Comment:Testing performed by : [facility]e [facility], [address] [place] [phone] Neutrophil pct 43.3 % [facility] Comment: Interpretive Data Percent cell count reference ranges are not reported, since discordance with absolute values may lead to misinterpretation of CBC data. Current Interpretive Data was last revised on 2017. Testing performed by: [facility]e [facility], [address] [place] [phone] Lymphocyte pct 44.2 % [facility] Comment: Interpretive Data Percent cell count reference ranges are not reported, since discordance with absolute values may lead to misinterpretation of CBC data. Current Interpretive Data was last revised on 2017. Testing performed by: [facility]e [facility], [address] [place] [phone] Monocyte pct 8.9 % [facility] Comment: Interpretive Data Percent cell count reference ranges are not reported, since discordance with absolute values may lead to misinterpretation of CBC data. Current Interpretive Data was last revised on 2017. Testing performed by: [facility] Heme [facility], [address] [place] [phone] Eosinophil pct 2.8 % [facility] Comment: Interpretive Data Percent cell count reference ranges are not reported, since discordance with absolute values may lead to misinterpretation of CBC data. Current Interpretive Data was last revised on 2017. Testing performed by: [facility], [address] [place] [phone] Basophil pct 0.7 % [facility] Comment: Interpretive Data Percent cell count reference ranges are not reported, since discordance with absolute values may lead to misinterpretation of CBC data. Current Interpretive Data was last revised on 2017. Testing performed by: [facility], [address] [place] [phone] Blood 02/25/2025 11:3 9 AM CDT 02/25/2025 11:50 AM CDT Juan José Garcia MD LAB BLOOD ORDER VAUGHN Final Result [facility] Department [place] [address] * (ABNORMAL) Immunoglobulin free light chains (02/25/2025 11:39 AM CDT) [place]/Lambda ratio [facility] 1.41 0.26 - 1.65 Comment: Interpretive Data The Binding Site FreeLite assay procedure was used. Results from different manufacturers or methods may not be comparable. Serial testing should be performed using the same methods and instrumentation. Current Interpretive Data was last revised on 2023. [place] free light chain [facility] 4.48(H) 0.33 - 1.94 mg/dL [facility] Comment: Interpretive Data The Binding Site FreeLite assay procedure was used. Results from different manufacturers or methods may not be comparable. Serial testing should be performed using the same methods and instrumentation. Current Interpretive Data was last revised on 2023. [place] free light chain [facility] 3.18(H) 0.57 - 2.63 mg/dL [facility] Comment: Interpretive Data The Binding Site FreeLite assay procedure was used. Results from different manufacturers or methods may not be comparable. Serial testing should be performed using the same methods and instrumentation. Current Interpretive Data was last revised on 2023. Blood 02/25/2025 11:3 9 AM CDT 02/25/2025 12:29 PM CDT Juan José Garcia MD LAB BLOOD ORDER VAUGHN Final Result [facility] Department [place] [address] * (ABNORMAL) CBC with auto differential (02/25/2025 11:39 AM CDT) WBC 5.18 3.80 - 9.90 K/cumm Comment:Testing performed by : [facility] Heme [facility], [address] [place] [address] Hgb 10.4(L) 13.0 - 17.5 g/dL [facility] Comment:Testing performed by : [facility]e [facility], [address] [place] [address] Hct 32.1(L) 38.9 - 50.3 % [facility] Comment:Testing performed by : [facility]e [facility], [address] [place] [address] Plt 221 150 - 400 K/cumm [facility] Comment:Testing performed by : [facility], [address] [place] [address] MPV 6.7(L) 6.8 - 10.4 fL [facility] Comment:Testing performed by : [facility] Heme Lab, [address] [place], [place] [phone] RBC 4.48 4.30 - 5.80 M/cumm [facility] Comment:Testing performed by : [facility] Heme [facility], [address] [place], [place] [phone] MCV 71.5(L) 81.3 - 96.4 fL [facility] Comment:Testing performed by : [facility]e [facility], [address] [place], [place] [phone] MCH 23.1(L) 27.1 - 33.3 pg [facility] Comment:Testing performed by : [facility] Heme [facility], [address] [place], [place] [phone] MCHC 32.3 32.3 - 35.7 g/dL [facility] Comment:Testing performed by : [facility]e [facility], [address] [place], [place] [phone] RDW CV 22.5(H) 11.1 - 14.9 % [facility] Comment:Testing performed by : [facility]e [facility], [address] [place], [place] [phone] NRBC abs 0.00 0.00 - 0.01 K/cumm [facility] Comment:Testing performed by : [facility] Heme [facility], [address] [place], [place] [phone] Blood 02/25/2025 11:3 9 AM CDT 02/25/2025 11:50 AM CDT Juan José Garcia MD LAB BLOOD ORDER VAUGHN Final Result [facility] Department [place] [address] * (ABNORMAL) Protein electrophoresis with reflex, serum with interpretation (02/25/2025 11:39 AM CDT) Protein, sr 8.0 6.2 - 8.2 g/dL Albumin 4.1 3.2 - 5.0 g/dL [facility] Alpha-1 globulin 0.3 0.2 - 0.4 g/dL [facility] Alpha-2 globulin 0.9 0.5 - 1.0 g/dL [facility] Beta-1 globulin 0.3 0.3 - 0.6 g/dL [facility] Beta-2 globulin 0.5 0.2 - 0.6 g/dL [facility] Gamma globulin 1.8(H) 0.5 - 1.7 g/dL [facility] SPEP interp Please see comment [facility] Comment: No apparent monoclonal peak Polyclonal increase in gamma globulins Electrophoretic pattern appears similar to previous sample 03/06/2024 Reviewed and signed by Oneal Boateng MD, PhD 02/26/2025 Blood 02/25/2025 11:3 9 AM CDT 02/25/2025 12:29 PM CDT Juan José Garcia MD LAB BLOOD ORDER VAUGHN Final Result Performing Organization Address City/[facility]/ZIP Co de Phone Number [facility] Department [place] [address] * Lactate dehydrogenase (LD) (02/25/2025 11:39 AM CDT) Pathologist [facility] Lactate dehydrogenase (LDH) 159 100 - 250 Units/L Blood 02/25/2025 11:3 9 AM CDT 02/25/2025 11:52 AM CDT Juan José Garcia MD LAB BLOOD ORDER VAUGHN Final Result [facility] [place] [address] * IgA (02/25/2025 11:39 AM CDT) Pathologist [facility] Immunoglobulin A 299 70 - 400 mg/dL Blood 02/25/2025 11:3 9 AM CDT 02/25/2025 12:12 PM CDT Juan José Garcia MD LAB BLOOD ORDER VAUGHN Final Result Performing Organization Address City/[facility] Co de Phone Number [facility] [place] [address] * (ABNORMAL) IgM (02/25/2025 11:39 AM CDT) [facility] Immunoglobulin M 25(L) 40 - 230 mg/dL Blood 02/25/2025 11:3 9 AM CDT 02/25/2025 12:12 PM CDT Juan José Garcia MD LAB BLOOD ORDER VAUGHN Final Result Performing Organization Address [facility] de Phone Number [facility] [place] [address] * (ABNORMAL) IgG (02/25/2025 11:39 AM CDT) [facility] Immunoglobulin G 2,074(H) 700 - 1,600 mg/dL Blood 02/25/2025 11:3 9 AM CDT 02/25/2025 12:12 PM CDT Juan José Garcia MD LAB BLOOD ORDER VAUGHN Final Result Performing Organization Address [facility] [place] [address] * (ABNORMAL) Comprehensive metabolic panel (02/25/2025 11:39 AM CDT) [facility] Sodium 139 135 - 145 mmol/L Potassium, pl 4.2 3.3 - 4.9 mmol/L [facility] Chloride 102 97 - 110 mmol/L [facility] CO2 28 22 - 32 mmol/L [facility] Anion gap 9 2 - 15 mmol/L [facility] BUN 23 6 - 25 mg/dL [facility] Creatinine 2.07(H) 0.80 - 1.30 mg/dL [facility] Glucose 130 70 - 199 mg/dL [facility] Comment: Interpretive Data Fasting glucose >/= 126 mg/dl is diagnostic for diabetes. Fasting is defined as no caloric intake for at least 8 hours. Fasting glucose between 100 mg/dl to 125 mg/dl is diagnostic of prediabetes. In a patient with classic symptoms of hyperglycemia or hyperglycemic crisis, a random glucose >/= 200 mg/dl is diagnostic for diabetes. In the absence of unequivocal hyperglycemia, results should be confirmed by repeat testing. The classification and Diagnosis of Diabetes Diabetes Care 202; 46: S19-S40. Current interpretive data was last revised 2022. Calcium 9.4 8.5 - 10.3 mg/dL [facility] Bilirubin, total 0.8 0.1 - 1.2 mg/dL [facility] Protein, pl 8.1 6.5 - 8.5 g/dL [facility] Albumin 4.2 3.5 - 5.0 g/dL [facility] Alk phos 70 40 - 130 Units/L [facility] ALT 23 7 - 55 Units/L [facility] AST 20 10 - 50 Units/L [facility] Blood 02/25/2025 11:3 9 AM CDT 02/25/2025 11:52 AM CDT Juan José Garcia MD LAB BLOOD ORDER VAUGHN Final Result [facility] Department [place] [address] * (ABNORMAL) Hemoglobin A1c (01/09/2023 11:08 AM CDT) Hgb A1C 6.8(H) 4.0 - 5.6 % [facility] Estimated Average Glucose 148 mg/dL [facility] Comment: The ADA recommends reporting an estimated Average Glucose (eAG) with all Hemoglobin A1c results using the equation derived from a study of 507 normal and diabetic adults. Minority populations were underrepresented and children were not included. (Diabetes Care 2020; 43(S1): S66-S76). The eAG is not equivalent to a fasting glucose. Blood 01/09/2023 11:0 8 AM CDT 01/09/2023 12:18 PM CDT Juan José Garcia MD LAB BLOOD ORDER VAUGHN Final Result [facility] Department [place] [address] * (ABNORMAL) Lipid panel (01/09/2023 11:08 AM CDT) Cholesterol 140 30 - 199 mg/dL [facility] Comment: Interpretive Data Ages < or = 19 years Acceptable: <170 mg/dL Borderline high: 170-199 mg/dL High: >or= 200 mg/dL Ages > or = 20 years Desirable: <200 mg/dL Borderline high: 200-239 mg/dL High: >or= 240 mg/dL Literature References: 1. Expert Panel on Integrated Guidelines for Cardiovascular Health and Risk Reduction in Children and Adolescents. Pediatrics 2011;128:S213 2. NCEP Expert Panel. Circulation 2004;110:227 Current Interpretive Data was last revised on 2018. Triglycerides 152(H) <=149 mg/dL [facility] Comment: Interpretive Data Ages < or = 9 years Acceptable: <75 mg/dL Borderline high: 75-99 mg/dL High: >or= 100 mg/dL Ages 10 to 20 years Acceptable: <90 mg/dL Borderline high: 90-129 mg/dL High: >or= 130 mg/dL Ages > or = 20 years Desirable: <150 mg/dL Borderline high: 150-199 mg/dL High: 200-499 mg/dL Very high: >or= 499 mg/dL Literature References: 1. Expert Panel on Integrated Guidelines for Cardiovascular Health and Risk Reduction in Children and Adolescents. Pediatrics 2011;128:S213 2. NCEP Expert Panel. Circulation 2004;110:227 Current Interpretive Data was last revised on 2018. HDL 59 >=40 mg/dL SHANICE RICH Comment: Interpretive Data Ages < or = 19 years Acceptable: >45 mg/dL Borderline low: 40-45 mg/dL Low: <40 mg/dL Ages > or = 20 years Desirable: >or= 60 mg/dL Low: <40 mg/dL Literature References: 1. Expert Panel on Integrated Guidelines for Cardiovascular Health and Risk Reduction in Children and Adolescents. Pediatrics 2011;128:S213 2. NCEP Expert Panel. Circulation 2004;110:227 Current Interpretive Data was last revised on 2018. LDL, calculated 51 <=129 mg/dL SH[facility] Comment: Interpretive Data Ages < or = 19 years Acceptable: <110 mg/dL Borderline high: 110-129 mg/dL High: >or= 130 mg/dL Ages > or = 20 years Optimal: <100 mg/dL Near optimal: 100-129 mg/dL Borderline high: 130-159 mg/dL High: >160 mg/dL Literature References: 1. Expert Panel on Integrated Guidelines for Cardiovascular Health and Risk Reduction in Children and Adolescents. Pediatrics 2011;128:S213 2. NCEP Expert Panel. Circulation 2004;110:227 Current Interpretive Data was last revised on 2018. Non-HDL Cholesterol 81 mg/dL SHANICE [facility] Comment: Interpretive Data Ages < or = 19 years Acceptable: <120 mg/dL Borderline high: 120-144 mg/dL High: >145 mg/dL Ages > or = 20 years When triglycerides are >200 mg/dL, Non-HDL cholesterol is a secondary target of therapy with treatment goals that are 30 mg/dL greater than the LDL cholesterol target. Literature References: 1. Expert Panel on Integrated Guidelines for Cardiovascular Health and Risk Reduction in Children and Adolescents. Pediatrics 2011;128:S213 2. NCEP Expert Panel. Circulation 2004;110:227 Current Interpretive Data was last revised on 2018. Chol/HDL ratio 2 [facility] Blood 01/09/2023 11:0 8 AM CDT 01/09/2023 12:18 PM CDT us Juan José Garcia MD LAB BLOOD ORDER VAUGHN Final Result [facility] Department [place] [address] from Last 3 Months or Most Recently Relevant to Health Maintenance Insurance [facility] MEDICARE Address: [place] [id number] [facility] MEDICARE Address: [place] [address] [facility] MEDICARE Address: [address] [address] [place] [address] [facility] MEDICARE ADVANTAGE [facility] MEDICARE Address: [address] [address] [place] [address] TRANSPLANT [employer] MEDICARE RISK Advance Directives For more information, please contact: [phone] Documents on File Type Date Recorded Patient 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 Attacher Expl anation ADVANCE DIRECTIVE 06/02/2023 3:46 PM [facility] * Full Code (Latest Code Status on File) Date Activated Date Inactivated Comments 02/27/2023 9:07 AM 02/28/2023 5:22 AM * Full Code Date Activated Date Inactivated Comments 02/06/2023 3:05 PM 02/22/2023 5:33 PM * Full Code Date Activated Date Inactivated Comments 01/30/2023 9:52 AM 01/31/2023 5:30 AM Care Teams Self Propelled Dredge Operator Relationship Specialty Start Date End Date Justin Noble MD [address] [place] [id number] PCP - General Family Medicine 09/07/22 James Thomas MD [address] [facility] [address] [place] [address] Referring Physician Hematology 09/02/22
--- OUTSIDE RECORDS SUMMARY | 2025-04-05 09:40 | XMS_ITS | Encounter Summary ---
Author Organization [facility] Address [facility] [facility] [place] [address] Care Team Providers Care Slip Cover Estimator Name Role Phone Gisselle Hammer MD Unavailable Justin Noble MD Primary Care Provider [phone] Johnnie Buck OD Unavailable [phone] Riley Oliver MD Unavailable Carlos Sullivan MD Unavailable [phone] Justin Noble MD Unavailable [phone] Oneal Obando MD Unavailable Shasha Segovia MD Unavailable [phone] Lisbeth Butcher RN Unavailable [phone] Danitza Pruitt Unavailable Mckenzie Carcamo Unavailable Encounter Details Date Type Department Care Team (Late st Contact Info) Description 03/01/2022 Lab Requisition [facility] Care Pathology Lab [address] [place] [address] Criss Anderson MD [facility] [address] [address] Illness, unspecified Social History Tobacco Use Types Packs/Day Years Used Date Smoking Tobacco: Former Cigarettes 1 10 0 07/10/1968 - 07/10/1978 Smokeless Tobacco: Former Alcohol Use Standard Drinks/Week Comments Yes 0 (1 standard drink = 0.6 oz pur e alcohol) rare PHQ-2 Answer Date Recorded PHQ2 TOTAL SCORE 0 02/09/2022 Sex and Gender Information Value Date Recorded Sex Assigned at Not on file Legal Sex Male 6:30 AM FEATHER WASHER Gender Identity Not on file Sexual Orientation Not on file 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 No / Unsure 02/25/2022 2:03 PM CDT documented as of this encounter Plan of Treatment Upcoming Encounters Date Type Department Care Team (Late st Contact Info) Description 06/23/2025 11:00 AM FEATHER WASHER Office Visit [facility] - Endocrinology [address], [address] [place] [address] Gavin Medellin, ESTIMATOR AND DRAFTER-CISCO ENGINEER [address], [address] [place] [address] 08/15/2025 10:40 AM FEATHER WASHER Office Visit [facility] - Family Medicine [address] [place] [address] Justin Noble MD [address] [place] [address] documented as of this encounter Goals Goal Patient Goal Type Associated Problems Recent Progress Patient-Stated? Author Blood Pressure < 140/90 Blood Pressure 130/60(2024 11:05 AM CDT) No Haylie Woods MA Yearly PCP visit Lifestyle No Anali Storey MA HEMOGLOBIN A1C < 7.0 Result Component 6.9( 1:20 PM CDT) No Haylie Woods MA documented as of this encounter Procedures Procedure Name Priority Date/Time Associated Diagnosis Comments BONE MARROW BIOPSY (STL) Routine 02/25/2022 10:47 AM CDT Illness, unspecified documented in this encounter Results * BONE MARROW BIOPSY (STL) (02/25/2022 10:47 AM CDT) Case Report Bone Marrow Patholog y Report Case: [id number] Authorizing Provider: Criss Anderson MD Collected: 02/25/2022 10:47 AM Ordering Location: [facility] Pathology Lab Received: 03/01/2022 11:47 AM Pathologist: Rachelle Garcia Mai, DO Specimen: Bone Marrow Core 03/02/2022 2:56 PM CDT [facility] Final Diagnosis Bone marrow, aspirate, and clot section: - Plasma cell myeloma (>90% marrow involvement by CD138 immunohistochemistry) - See description 03/02/2022 2:56 PM CDT [facility] at 1456 CDT AP Comment Overall, the bone marrow specimen is hypercellular for age (>90% cellular overall) with effacement of the marrow compartment by plasma cell myeloma (62% by manual differential count and >90% by immunohistochemistry) . Correlation with clinical findings and relevant cytogenetic/molecular testing is required for final prognostication. 03/02/2022 2:56 PM CDT [facility] Bone Marrow Aspirate Differential count (100 cells): 1% blasts, 8% maturing myeloid precursors, 2% erythroid progenitors, 6% monocytes, 3% eosinophils, 1% lymphocytes, 62% plasma cells. Specimen quality: suboptimal with poor staining, limited manual differential count performed Spicules: one tiny particle. Trilineage Hematopoiesis: decreased. Myeloid:Erythroid ratio: cannot accurately assess due to effacement by plasma cells. Myeloid/erythroid maturation: cannot accurately assess due to effacement by plasma cells. Megakaryocyte morphology: too rare to assess for dysplasia Other: Plasmacytosis including enlarged forms and some with variably prominent nucleoli Storage iron (by special stain): noncontributory (aspiculate and hemodilute). Sideroblastic iron (by special stain): no ring sideroblasts. 03/02/2022 2:56 PM CDT [facility] Bone Marrow Core Biopsy and Clot Section Description Specimen quality: fragmented but adequate with 1.0 cm of evaluable marrow. Cellularity: >90 % Trilineage Hematopoiesis: decreased due to effacement by plasma cells. Myeloid to Erythroid ratio: cannot be accurately assessed due to effacement by plasma cells. Myeloid/erythroid maturation and localization: cannot be accurately assessed due to effacement by plasma cells. Megakaryocyte number: normal. Megakaryocyte distribution: focal loose clustering. Lymphoid aggregates: absent. Bone trabeculae: normal. Blood vessels: normal. Plasma cells: increased with some cytologically abnormal forms. Properly controlled immunohistochemical stains performed at [facility] Department of Pathology show the following: CD138: Stains sheets of plasma cells which comprise greater than 90% of marrow cellularity [place]/lambda in situ hybridization: Shows both kappa and lambda positive cells without obvious light chain restriction; the majority of plasma cells do not secrete either light chain CD56: Negative CD20: Positive in scattered B cells, negative in plasma cells 03/02/2022 2:56 PM [facility] Flow Cytometry Summary N/A 03/02/2022 2:56 PM [facility] Clinical History The patient is a 71-year-old man presented with hyperkalemia, and acute on chronic kidney dysfunction. 03/02/2022 2:56 PM [facility] Materials Received Received are 15 slides and two blocks (A1, A2) labeled [id number] along with a copy of the outside pathology report. [place] [address]. All original materials are returned to the referring institution, along with a copy of our final report. 03/02/2022 2:56 PM [facility] Disclaimer The performance characteristics of all immunohistochemical and indirect immunofluorescence stains (if any) cited in this report were determined by the Histopathology Laboratory of [facility]. Some of these tests were developed by our own laboratory and have not been cleared or approved by the US Food and Drug Administration. The FDA does not require this test to go through premarket FDA review. These tests are used for clinical purposes. They should not be regarded as investigational or for research. This laboratory is certified under the Clinical Laboratory Improvement Amendments (CLIA) as qualified to perform high complexity clinical laboratory testing. This case has been personally reviewed and interpreted by the attending (teaching) pathologist. 03/02/2022 2:56 PM CDT [facility] Embedded Images 03/02/2022 2:56 PM CDT [facility] Pathology/Cytolo gy BONE MARROW SPECIMEN / Unknown 02/25/2022 10:47 AM CDT 03/01/2022 11:47 AM CDT Criss Anderson MD LAB - PATHOLOGY/CYTOLOGY ORDERAB LES Final Result Performing Organization Address City/State/[facility] Co de Phone Number [facility] [address] [place], [place] [address] [phone] documented in this encounter Visit Diagnoses Diagnosis Illness, unspecified documented in this encounter Care Teams Slip Cover Estimator Relationship Specialty Start Date End Date Justin Noble MD [address] [place] [phone] PCP - General Family Medicine 11/14/13 Justin Noble MD [facility] [place] [address] PCP - Attributed-[facility] [place] 12/13/16 Shasha Segovia MD [address] [place] [phone] PCP - [facility] 08/16/22 10/24/22 Gisselle Hammer MD [address] [place] [address] [address] [place] [address] Endocrinology 01/03/13 Johnnie Buck OD [address] [place] [address] [phone] Administrative Resident 12/25/13 Riley Oliver MD [address] [place] [phone] Nephrology 12/25/13 Carlos Sullivan MD [address] [facility] [address] [place] [address] Pulmonary Disease 12/25/13 Oneal Obando MD [address] [facility] [address] [place], [place] [id number] Cardiology 10/27/21 Lisbeth Butcher, RN Administrative Support AssocAssessment Consultant 01/25/23 01/25/23 Danitza Pruitt Care Coordination Specialist Care Management 03/13/24 03/13/24 Mckenzie Carcamo Care Coordination Specialist Care Management 01/02/25 01/02/25 documented as of this encounter
--- OUTSIDE RECORDS SUMMARY | 2025-04-05 09:40 | XMS_ITS | Clinical Summary ---
Author Organization [facility] (Formerly [facility]) Matthieu Vazquez Address [address] [place] [address] Care Team Providers Care Clinical Professor Name Role Phone Justin Noble MD Primary Care Provider [phone] Allergies No known active allergies Medications amLODIPine (NORVASC) 10 mg tablet Take 10 mg by mouth daily. 01/18/20 22 Active aspirin (ECOTRIN EC) 81 mg Tablet, Delayed Release (E.C.) Take 81 mg by mouth daily. Active atorvastatin (LIPITOR) 80 mg tablet 03/06/20 22 Active OneTouch Verio test strips Strip USE TO TEST BLOOD SUFARS THREE TIMES DAILY BEFORE MEALS 01/15/20 22 Active Toujeo Max U-300 SoloStar 300 unit/mL (3 mL) Insulin Pen ADMINISTER 120 UNITS UNDER THE SKIN EVERY NIGHT AT BEDTIME 02/05/20 22 Active HumaLOG KwikPen Insulin 200 unit/mL (3 mL) pen syringe INJECT 45 UNITS UNDER SKIN THREE TIMES DAILY WITH MEALS 01/24/20 22 Active Global AxcessTouch Delica Plus Lancet 33 gauge USE TO CHECK BLOOD SUGAR FOUR TIMES DAILY 02/09/20 22 Active latanoprost (XALATAN) 0.005 % solution INSTILL 1 DROP INTO BOTH EYES EVERY NIGHT AT BEDTIME IN PLACE OF LUMIGAN 01/02/20 22 Active metoprolol tartrate (LOPRESSOR) 50 mg tablet 03/06/20 22 Active BD Ultra-Fine Short Pen Needle 31 gauge x 5/16 Needle USE TO INJECT FOUR TIMES DAILY 01/30/20 22 Active triamterene-hy droCHLOROthiaz jose martin (MAXZIDE) 75-50 mg tablet 03/07/20 22 Active lenalidomide (REVLIMID) 10 mg capsuleIndicat ions:Multiple myeloma not having achieved remission (CMS/HCC) Take 1 Capsule (10 mg) by mouth daily. 28 Capsule 06/16/20 23 Active allopurinoL (ZYLOPRIM) 100 mg tabletIndicati ons:Multiple myeloma not having achieved remission (CMS/HCC) TAKE 1 TABLET(100 MG) BY MOUTH DAILY 90 Tablet 1 09/25/19 24 Active valACYclovir (VALTREX) 500 mg tabletIndicati ons:Multiple myeloma not having achieved remission (CMS/HCC) TAKE 1 TABLET(500 MG) BY MOUTH DAILY 90 Tablet 3 11/14/19 25 Active allopurinoL (ZYLOPRIM) 100 mg tabletIndicati ons:Multiple myeloma not having achieved remission (CMS/HCC) TAKE 1 TABLET(100 MG) BY MOUTH DAILY 90 Tablet 1 04/02/20 25 Active allopurinoL (ZYLOPRIM) 100 mg tabletIndicati ons:Multiple myeloma not having achieved remission (CMS/HCC) TAKE 1 TABLET(100 MG) BY MOUTH DAILY 90 Tablet 1 09/14/19 25 025 Discontinued Active Problems Problem Noted Date Diagnosed Date Chronic anemia 03/12/2025 Benign hypertension 03/12/2025 Lymphocytosis 03/12/2025 Multiple myeloma not having achieved remission 0 03/09/2022 Encounters Date Type Department Care Team Description 04/01/2025 Refill [facility] ([facility] Oncology and Hematology - Johnnie [address] [place] [address] James Thomas MD Multiple myeloma not having achieved remission (CMS/HCC) 03/31/2025 Orders Only [facility] ([facility] Oncology and Hematology - Johnnie [address] [facility] [place] [phone] James Thomas MD Benign hypertension 03/27/2025 Orders Only [facility] ([facility] Oncology and Hematology - Johnnie [address] [facility] [place] [phone] James Thomas MD 03/25/2025 External Device Data STL ABSTRACTION Provider, Abstract 03/24/2025 Orders Only [facility] ([facility] Oncology and Hematology - Johnnie [address] [place] [phone] James Thomas MD Multiple myeloma not having achieved remission (CMS/HCC) 03/17/2025 Orders Only [facility] Oncology and Hematology - Johnnie [address] [place] [address] James Thomas MD Benign hypertension 03/12/2025 8:30 AM CDT Office Visit [facility] [address] [place] [phone] Diane Cantu MD Multiple myeloma not having achieved remission (CMS/HCC) (Primary Dx); Chronic anemia; Benign hypertension; Lymphocytosis 03/12/2025 Orders Only [facility] Oncology and Hematology [facility] [address] James Thomas MD 03/11/2025 External Device Data STL ABSTRACTION Provider, Abstract 03/11/2025 External Device Data STL ABSTRACTION Provider, Abstract 03/10/2025 Orders Only [facility] Oncology and Hematology [facility] [address] [place] [phone] James Thomas MD Multiple myeloma not having achieved remission (CMS/HCC) 03/03/2025 Orders Only [facility] H[facility] [address] [place] [phone] James Thomas MD Benign hypertension 02/27/2025 Orders Only [facility] Oncology and Hematology [facility] [address] [place] [phone] James Thomas MD 02/25/2025 External Device Data STL ABSTRACTION Provider, Abstract 02/24/2025 Orders Only [facility] Oncology and Hematology [facility] [address] [place] [phone] James Thomas MD Multiple myeloma not having achieved remission (CMS/HCC) 02/17/2025 Orders Only [facility] Oncology and Hematology [facility] [address] [place] [phone] James Thomas MD Benign hypertension 02/12/2025 External Device Data STL ABSTRACTION Provider, Abstract 02/12/2025 Orders Only [facility] Oncology and Hematology Johnnie [address] [place] [phone] James Thomas MD 02/11/2025 External Device Data STL ABSTRACTION Provider, Abstract 02/10/2025 Orders Only [facility] Oncology and Hematology Johnnie [address] [place] [phone] James Thomas MD Multiple myeloma not having achieved remission (CMS/HCC) 02/03/2025 Orders Only [facility] Oncology and Hematology [facility] [address] [place] [phone] James Thomas MD Benign hypertension 01/29/2025 Orders Only [facility] Oncology and Hematology - Johnnie [address] [place] [phone] James Thomas MD 01/27/2025 Orders Only [facility] Oncology and Hematology Johnnie [address] [place] [phone] James Thomas MD Multiple myeloma not having achieved remission (CMS/HCC) 01/22/2025 External Device Data STL ABSTRACTION Provider, Abstract 01/22/2025 External Device Data STL ABSTRACTION Provider, Abstract 01/22/2025 External Device Data STL ABSTRACTION Provider, Abstract 01/21/2025 External Device Data STL ABSTRACTION Provider, Abstract 01/20/2025 Orders Only [facility] Oncology and Hematology - Johnnie [address] [place] [phone] James Thomas MD Benign hypertension 01/15/2025 8:30 AM CDT Office Visit [facility] Oncology and Hematology [facility] [address] [place] [phone] James Thomas MD Multiple myeloma not having achieved remission (CMS/HCC) (Primary Dx) 01/13/2025 Orders Only [facility] Oncology and Hematology - Johnnie [address] [place] [address] James Thomas MD Multiple myeloma not having achieved remission (CMS/HCC) 01/06/2025 Orders Only [facility] Oncology and Hematology - Johnnie [address] [place] [address] Jmaes Thomas MD Benign hypertension from Last 3 Months Family History Relation Name Status Comments Brother Alive Father Mother Social History Tobacco Use Types Packs/Day Years Used Date Smoking Tobacco: Former Cigarettes Smokeless Tobacco: Never Tobacco Cessation:Counseling Given: Not Answered Alcohol Use Standard Drinks/Week Comments Yes 0 (1 standard drink = 0.6 oz pur e alcohol) ocassionally Sex and Gender Information Value Date Recorded Sex Assigned at Not on file Legal Sex Male 10:04 AM CDT Gender Identity Not on file Sexual Orientation Not on file Last Filed Vital Signs Vital Sign Reading Time Taken Comments Blood Pressure 126/58 03/12/2025 8:39 AM CDT Pulse 90 03/12/2025 8:39 AM CDT Temperature 36.6 C (97.8 F) 03/12/2025 8:39 AM CDT Respiratory Rate 15 03/12/2025 8:39 AM CDT Oxygen Saturation 97% 03/12/2025 8:39 AM CDT Inhaled Oxygen Concentration - - Weight 130.5 kg (287 lb 9.6 oz) 03/12/2025 8:39 AM CDT Height 182.9 cm (6') 03/31/2022 9:43 AM CDT Body Mass Index 39.01 03/31/2022 9:43 AM CDT Plan of Treatment Upcoming Encounters Date Type Department Care Team (Late st Contact Info) Description 04/07/2025 Orders Only [facility] Oncology and Hematology - Johnnie [address] [place] [address] James Thomas MD [address] [place] [address] Multiple myeloma not having achieved remission (CMS/HCC) 05/21/2025 8:30 AM AUTISM TEACHER Office Visit [facility] Oncology and Hematology - Johnnie [address] [place] [address] Diane Cantu MD [address] [place] [address] Health Maintenance Due Date Last Done Comments DIABETES MICROALBUMIN ANNUAL SCREEN 1966 LDL CHOLESTEROL ANNUAL 1966 ZOSTER VACCINE (1 of 2) 12/29/1967 RSV VACCINE (60+ or ) (1 - 1-dose 75+ series) 12/29/2023 INFLUENZA VACCINE (#1) 2025 , 05/11/2021, 05/11/2021, Additional history exists DIABETES ANNUAL FOOT EXAM 02/22/2025 02/23/2024 COVID-19 Vaccine ( - 2024-2 6 season) 2025 04/07/2023, 09/28/2020, 08/31/2020 DIABETES HBA1C Q 6 MONTHS 09/10/20252024, 12/03/2024, 09/02/2024, Additional history exists DIABETES ANNUAL RETINAL EXAM 10/24/2025 10/24/2024 DTAP/TDAP/TD VACCINES (3 - T d or Tdap) 04/16/2029 04/16/2019, 06/13/2014 PNEUMOCOCCAL VACCINE 50+ YEARS Completed 11/19/2015 , 06/13/2014 COLORECTAL SCREENING Discontinued 07/06/2023 Colorectal Cancer Screening Discontinued FIT-DNA Q 3 years Discontinued FIT/FOBT Q 1 year Discontinued Flex Sig/CT Colonography Q 5 years Discontinued Procedures Procedure Name Priority Date/Time Associated Diagnosis Comments BASIC METABOLIC PANEL Routine 03/26/2025 11:54 AM CDT COMPREHENSIVE METABOLIC PANEL Routine 03/26/2025 11:50 AM CDT BASIC METABOLIC PANEL Routine 03/12/2025 12:57 PM CDT COMPREHENSIVE METABOLIC PANEL Routine 03/12/2025 12:56 PM CDT CBC WITH AUTODIFFERENTIAL Routine 2024 12:53 PM CDT BASIC METABOLIC PANEL Routine 02/26/2025 10:12 AM CDT BASIC METABOLIC PANEL Routine 02/12/2025 12:58 PM CDT COMPREHENSIVE METABOLIC PANEL Routine 02/12/2025 12:56 PM CDT BASIC METABOLIC PANEL Routine 01/29/2025 2:34 PM CDT CBC WITH DIFFERENTIAL Routine 01/29/2025 11:43 AM CDT from Last 3 Months Results * BASIC METABOLIC PANEL (03/26/2025 11:54 AM CDT) Only the most recent of5 resultswithin the time period is included. Blood us James Thomas MD CHEMISTRY ORDERABLES Final Resu lt * COMPREHENSIVE METABOLIC PANEL (03/26/2025 11:50 AM CDT) Only the most recent of3 resultswithin the time period is included. Blood us James Thomas MD CHEMISTRY ORDERABLES Final Resu lt * CBC WITH AUTODIFFERENTIAL (03/12/2025 12:53 PM CDT) Blood us James Thomas MD HEMATOLOGY ORDERABLES Final Res ult * CBC WITH DIFFERENTIAL (01/29/2025 11:43 AM CDT) Blood us James Thomas MD HEMATOLOGY ORDERABLES Final Res ult from Last 3 Months Insurance [facility] [id number] RX [employer] RX Member Subscriber Plan / Payer (Ef fective 2016-Present) Name:Reji, Willam M Relation to Subscriber:Self Name:Reji, Willam M Payer ID:Not on file Group ID:[id number] Type:RX Medicare Part D Address: [address] [place] [facility] [id number] Care Teams Clinical Professor Relationship Specialty Start Date End Date Justin Noble MD PCP - General Family Practice 03/09/22
--- OUTSIDE RECORDS SUMMARY | 2025-04-05 09:40 | XMS_ITS | Encounter Summary ---
Author Organization [facility] Address [facility] [place] [address] Care Team Providers Care Specialty Manufacturing Supervisor Name Role Phone Gisselle Hammer MD Unavailable [phone] Justin Noble MD Primary Care Provider Johnnie Buck OD Unavailable [phone] Riley Oliver MD Unavailable Carlos Sullivan MD Unavailable [phone] Justin Noble MD Unavailable [phone] Oneal Obando MD Unavailable [phone] Encounter Details Date Type Department Care Team (Late st Contact Info) Description 03/19/2025 Results Follow-Up [facility] Medical [facility] - Endocrinology [address], [address] [place] [address] Gavin Medellin, MALTED MILK MASHER-HEAT READER [address], [address] [place] [address] Social History Tobacco Use Types Packs/Day Years Used Date Smoking Tobacco: Former Cigarettes 1 10 0 07/10/1968 - 07/10/1978 Smokeless Tobacco: Former Alcohol Use Standard Drinks/Week Comments Yes 0 (1 standard drink = 0.6 oz pur e alcohol) rare PHQ-2 Answer Date Recorded Patient Health Questionnaire-2 Score 0 08/16/2024 Sex and Gender Information Value Date Recorded Sex Assigned at Not on file Legal Sex Male 6:30 AM OVERHEAD GARAGE DOOR HANGER Gender Identity Not on file Sexual Orientation Not on file 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 Not on file Not on file Not on file documented as of this encounter Plan of Treatment Upcoming Encounters Date Type Department Care Team (Late st Contact Info) Description 06/23/2025 11:00 AM OVERHEAD GARAGE DOOR HANGER Office Visit [facility] - Endocrinology [address], [address] [place] [address] Gavin Medellin, MALTED MILK MASHER-HEAT READER [address], [address] [place] [address] 08/15/2025 10:40 AM OVERHEAD GARAGE DOOR HANGER Office Visit [facility] - Family Medicine [address] [place] [address] Justin Noble MD [address] [place] [address] documented as of this encounter Goals Goal Patient Goal Type Associated Problems Recent Progress Patient-Stated? Author Blood Pressure < 140/90 Blood Pressure 130/60(2024 11:05 AM CDT) No Haylie Woods MA Yearly PCP visit Lifestyle No Anali Storye MA HEMOGLOBIN A1C < 7.0 Result Component 6.9( 1:20 PM CDT) No Haylie Woods MA documented as of this encounter Visit Diagnoses Not on filedocumented in this encounter Care Teams Specialty Manufacturing Supervisor Relationship Specialty Start Date End Date Justin Noble MD [address] [place] [address] [address] [place] [address] PCP - General Family Medicine 11/14/13 Justin Noble MD [address] [place] [address] PCP - [facility] 12/13/16 Gisselle Hammer MD [address], [address] [place] [phone] Endocrinology 01/03/13 Johnnie Buck OD [address] [place] [address] [address] [place] [address] Web Operations Manager 12/25/13 Riley Oliver MD [address] [place] [address] [address] [place] [address] Nephrology 12/25/13 Carlos Sullivan MD [address] [place] [phone] Pulmonary Disease 12/25/13 Oneal Obando MD [address] [facility] [address] [place] [address] Cardiology 10/27/21 documented as of this encounter
--- OUTSIDE RECORDS SUMMARY | 2025-04-05 09:40 | XMS_ITS | Encounter Summary ---
Author Organization [facility] Address [address] [place] [address] Phone Care Team Providers Care Roll Builder Name Role Phone Jmaes Thomas MD Unavailable Justin Noble MD Primary Care Provider [phone] Encounter Details Date Type Department Care Team (Late st Contact Info) Description 04/09/[address] [facility] Medicine Scheduling [address] [place] [address] Celina Cuello Social History Tobacco Use Types Packs/Day Years [...] often do you attend chur ch or taoist services? More than 4 times per year 02/08/2023 Do you belong to any clubs o r organizations such as shinto groups, unions, fraternal or athletic groups, or [...] place to sleep or slept in a nursing home (including now)? No 02/08/2023 Personal Safety Answer Date Recorded Have you ever been in or are you currently in a harmful physical or emotional relationship or is someone making you feel afraid or unsafe? Denies 02/27/2023 Sex and Gender Information Value Date Recorded Sex Assigned at Not on file Legal Sex Male 5:33 PM [employer] Gender Identity Not on file Sexual Orientation Not on file documented as of this encounter Plan of Treatment Not on file documented as of this encounter Visit Diagnoses Not on filedocumented in this encounter Care Teams Roll Builder Relationship Specialty Start Date End Date Justin Noble MD [facility] [address] [place] [address] PCP - General Family Medicine 09/07/22 James Thomas MD [address] [facility] [address] [place] [phone] Referring Physician Hematology 09/02/22 documented as of this encounter
--- OUTSIDE RECORDS SUMMARY | 2025-04-05 09:40 | XMS_ITS | Encounter Summary ---
Author Organization [facility] Address [facility] [place] [address] Care Team Providers Care Software Configuration Engineer Name Role Phone Gisselle Hammer MD Unavailable Justin Noble MD Primary Care Provider [phone] Johnnie Buck OD Unavailable [phone] Riley Oliver MD Unavailable Carlos Sullivan MD Unavailable Justin Noble MD Unavailable [phone] Oneal Obando MD Unavailable Shasha Segovia MD Unavailable [phone] Lisbeth Butcher RN Unavailable [phone] Danitza Pruitt Unavailable Mckenzie Carcamo Unavailable Encounter Details Date Type Department Care Team (Late st Contact Info) Description 08/22/2022 Lab Requisition [facility] Care Pathology Lab [address] [place] [address] Criss Anderson MD [facility] [address] [address] Multiple myeloma not having achieved remission Social History Tobacco Use Types Packs/Day Years Used Date Smoking Tobacco: Former Cigarettes 1 10 0 07/10/1968 - 07/10/1978 Smokeless Tobacco: Former Alcohol Use Standard Drinks/Week Comments Yes 0 (1 standard drink = 0.6 oz pur e alcohol) rare PHQ-2 Answer Date Recorded PHQ2 TOTAL SCORE 0 05/20/2022 Sex and Gender Information Value Date Recorded Sex Assigned at Not on file Legal Sex Male 6:30 AM DISTRICT ADMINISTRATOR Gender Identity Not on file Sexual Orientation Not on file 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 Not on file Not on file Not on file documented as of this encounter Plan of Treatment Upcoming Encounters Date Type Department Care Team (Late st Contact Info) Description 06/23/2025 11:00 AM DISTRICT ADMINISTRATOR Office Visit [facility] - Endocrinology [address], [address] [place] [address] Gavin Medellin OCCUPATIONAL HEALTH NURSING DIRECTOR-CUSTOMER MARKETING INTERN [address], [address] [place] [address] 08/15/2025 10:40 AM DISTRICT ADMINISTRATOR Office Visit [facility] - Family Medicine [address] [place] [address] Justin Noble MD [address] [place] [address] documented as of this encounter [...] Procedure Name Priority Date/Time Associated Diagnosis Comments FLOW CYTOMETRY BONE MARROW Routine 08/22/2022 9:48 AM DISTRICT ADMINISTRATOR Multiple myeloma not having achieved remission (CMS/HCC) documented in this encounter Results * FLOW CYTOMETRY BONE MARROW (08/22/2022 9:48 AM DISTRICT ADMINISTRATOR) Case Report Flow Cytometry Case: [id number] Authorizing Provider: Criss Anderson MD Collected: 08/22/2022 09:48 AM Ordering Location: [facility] Pathology Lab Received: 08/22/2022 01:48 PM Pathologist: Jerod Castro MD Specimen: Bone Marrow 08/22/2022 4:55 PM [facility] PATHOLOGY LAB Final Diagnosis Bone marrow, flow cytometric immunophenotypic analysis: - No clonal B cell, plasma cell, or increased blast population identified - See interpretation 08/22/2022 4:55 PM [facility] PATHOLOGY LAB at 1655 DISTRICT ADMINISTRATOR Flow Cytometry Interpretation The bone marrow specimen has a viability of 92%. The lymphocyte, dim CD45, monocyte, and granulocyte reynolds are normal in relative proportion. Within the lymphocyte gate, there is no clonal B-cell population detected (kappa:lambda 1.5:1). There is no expanded T-cell population seen. By CD34, 1.5% of all events analyzed are blasts. There is a small polyclonal plasma cell population identified (1.1% of all events) with a kappa: lambda ratio of 1:1 and CD19 co-expression in a subset.. A bone marrow aspirate smear prepared from the flow cytometry specimen is reviewed for production quality manager purposes. The bone marrow aspirate specimen shows no evidence of involvement by residual/recurrent plasma cell myeloma, non-Hodgkin lymphoma, or a high-grade myeloid neoplasm. Correlation with clinical findings, the concurrent bone marrow core biopsy if any, and relevant cytogenetic/molecu lar studies is required. 08/22/2022 4:55 PM [facility] PATHOLOGY LAB Flow Cytometry Results Differential Result Comment Flow Cell Count /uL 54,000 Total Viability % 92.0 Lymphocytes % 34 Dim CD45 Region % 8 Monocytes % 22 Granulocytes % 34 08/22/2022 4:55 PM [facility] Reason for test Multiple myeloma not having achieved remission (CMS/HCC) 203.00 08/22/2022 4:55 PM [facility] PATHOLOGY LAB Client Specimen ID # [id number] 08/22/2022 4:55 PM [facility] PATHOLOGY LAB Number of markers 14 were performed. A-2 Flow CD10 A-3 Flow CD13 A-5 Flow CD20 A-13 Flow CD117 A-14 FLOW CD138 A-1 Flow CD5 A-4 Flow CD19 A-6 Flow CD33 A-7 Flow CD34 A-8 Flow CD45 A-11 Flow CD38 A-12 Flow CD56 A-9 Rose+CD19+ A-10 Lambda+CD19+ 08/22/2022 4:55 PM DISTRICT ADMINISTRATOR [facility] PATHOLOGY LAB Disclaimer Test performed at [facility], [address] [place], [place], [address]. *The established laboratory minimum viability is 70%. Values below the minimum may result in the failure to find an abnormal population of cells. This test was developed and its performance characteristics determined by the Flow Cytometry Laboratory. It has not been cleared by the [place] Food and Drug Administration (FDA). The FDA has determined that such clearance or approval is not necessary. This test is used for clinical purposes. It should not be regarded as investigational or for research. This laboratory is regulated under the Clinical Laboratory Improvement Amendments of 1998 (CLIA) as a qualified to perform high complexity clinical testing. 08/22/2022 4:55 PM DISTRICT ADMINISTRATOR [facility] PATHOLOGY LAB Embedded Images 4:55 PM DISTRICT ADMINISTRATOR [facility] PATHOLOGY LAB Pathology/Cytolo gy BONE MARROW SPECIMEN / Unknown 08/22/2022 9:48 AM DISTRICT ADMINISTRATOR 08/22/2022 1:48 PM DISTRICT ADMINISTRATOR Criss Anderson MD LAB - PATHOLOGY/CYTOLOGY ORDERAB LES Final Result [facility] PATHOLOGY LAB [facility]. [address] [phone] documented in this encounter Visit Diagnoses Diagnosis Multiple myeloma not having achieved remission (HCC) Multiple myeloma, without mention of having achieved remission documented in this encounter Care Teams Software Configuration Engineer Relationship Specialty Start Date End Date Justin Noble MD [address] [place] [address] PCP - General Family Medicine 11/14/13 Justin Noble MD [facility] [place] [address] PCP - Attributed-[facility] 12/13/16 Shasha Segovia MD [address] [place] [address] [place] [phone] PCP - [facility] 08/16/22 10/24/22 Gisselle Hammer MD [address] [place] [address] [address] [place] [phone] Endocrinology 01/03/13 Johnnie Buck OD [address] [place] [address] [address] [place] [address] Cherry Grower 12/25/13 Riley Oliver MD [address] [place] [address] [address] [place], [place] [phone] Nephrology 12/25/13 Carlos Sullivan MD [address] [facility] [address] [place] [phone] Pulmonary Disease 12/25/13 Oneal Obando MD [address] [place] [address] [address] [place] [address] Cardiology 10/27/21 Lisbeth Butcher, RN Nanoscience TechnicianWarp Drawer 01/25/23 01/25/23 Danitza Pruitt Care Coordination Specialist Care Management 03/13/24 03/13/24 Mckenzie Carcamo Care Coordination Specialist Care Management 01/02/25 01/02/25 documented as of this encounter
--- OUTSIDE RECORDS SUMMARY | 2025-04-05 09:40 | XMS_ITS | Encounter Summary ---
Author Organization [facility] Address [facility]3 [facility] [place] [address] Care Team Providers Care Business Services Clerk Name Role Phone Gisselle Hammer MD Unavailable Justin Noble MD Primary Care Provider [phone] Johnnie Buck OD Unavailable [phone] Riely Oliver MD Unavailable Carlos Sullivan MD Unavailable Justin Noble MD Unavailable [phone] Oneal Obando MD Unavailable [phone] Danitza Pruitt Unavailable Mckenzie Carcamo Unavailable Encounter Details Date Type Department Care Team (Late st Contact Info) Description 02/21/2024 Lab Requisition [facility] - Pathology Lab [address] [place] [address] Rafa Waller MD [address] [place] [address] Lymphocytosis (symptomatic) Social History Tobacco Use Types Packs/Day Years Used Date Smoking Tobacco: Former Cigarettes 1 10 0 07/10/1968 - 07/10/1978 Smokeless Tobacco: Former Alcohol Use Standard Drinks/Week Comments Yes 0 (1 standard drink = 0.6 oz pur e alcohol) rare PHQ-2 Answer Date Recorded Patient Health Questionnaire-2 Score 0 08/11/2023 Sex and Gender Information Value Date Recorded Sex Assigned at Not on file Legal Sex Male 6:30 AM HEAD CONTROL CLERK Gender Identity Not on file Sexual Orientation Not on file 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 Not on file Not on file Not on file documented as of this encounter Plan of Treatment Upcoming Encounters Date Type Department Care Team (Late st Contact Info) Description 06/23/2025 11:00 AM HEAD CONTROL CLERK Office Visit [facility] - Endocrinology [address], [address] [place] [address] Gavin Medellin, PERSONAL HEALTH COACH-SENIOR SOFTWARE QA ANALYST [address], [address] [place] [address] 08/15/2025 10:40 AM HEAD CONTROL CLERK Office Visit [facility] - Family Medicine [address] [place] [address] Justin Noble MD [address] [place] [address] documented as of this encounter [...] Priority Date/Time Associated Diagnosis Comments FLOW CYTOMETRY BLOOD PROFILE Routine 02/21/2024 9:20 AM CDT Lymphocytosis (symptomatic) documented in this encounter Results * FLOW CYTOMETRY BLOOD PROFILE (02/21/2024 9:20 AM CDT) Case Report Flow Cytometry Case: [id number] Authorizing Provider: Rafa Waller Collected: 02/21/2024 09:20 AM MD Esdras Ordering Location: [facility] - Received: 02/21/2024 01:31 PM Pathology Lab Pathologist: Sachin Glaser MD Specimen: Blood 02/21/2024 5:37 PM CDT [facility] PATHOLOGY LAB Final Diagnosis Peripheral blood, flow cytometric immunophenotypic analysis: - No diagnostic evidence of expanded T-cells, clonal B-cells or acute leukemia. - See interpretation. 02/21/2024 5:37 PM CDT [facility] PATHOLOGY LAB at 1736 CDT Flow Cytometry Results Differential Result Comment Flow Cell Count /uL Total Viability % 100.0 Lymphocytes % 60 Dim CD45 Region % 2 Monocytes % 12 Granulocytes % 25 02/21/2024 5:37 PM CDT [facility] PATH[facility] LAB Flow Cytometry Interpretation Viability: 100% B-cells: polytypic, kappa:lambda ratio 1.2:1 T-cells: no immunophenotypic aberrancy detected CD4:CD8 ratio 0.5:1 Blasts: not detected A peripheral blood smear prepared from the flow cytometry specimen has been reviewed for quality audit representative purposes. 02/21/2024 5:37 PM CDT [facility] PATHOLOGY LAB Reason for test Lymphocytosis (symptomatic) 288.61 02/21/2024 5:37 PM [facility] PATHOLOGY LAB Client Specimen ID # [id number] 02/21/2024 5:37 PM CDT [facility] PATH[facility] LAB Pathologist Location at [facility] 02/21/2024 5:37 PM CDT [facility] PATH[facility] LAB Disclaimer Test performed at [facility], [address] [place] [address], [address]. *The established laboratory minimum viability is 70%. [...] qualified to perform high complexity clinical testing. 02/21/2024 5:37 PM CDT [facility] PATHOLOGY LAB Embedded Images 5:37 PM CDT [facility] PATH[facility] LAB Number of markers 17 were performed. A-1 Flow CD10 A-2 Flow CD13 A-4 Flow CD20 A-10 Flow CD2 A-11 Flow CD3 A-12 Flow CD4 A-16 Flow CD1a A-3 Flow CD19 A-5 Flow CD33 A-6 Flow CD34 A-7 Flow CD45 A-13 Flow CD5 A-14 Flow CD7 A-15 Flow CD8 A-17 Flow CD30 A-8 [place]+CD19+ A-9 Lambda+CD19+ 02/21/2024 5:37 PM CDT [facility] PATH[facility] LAB Blood BLOOD SPECIMEN / Unknown 02/21/2024 9:20 AM CDT 02/21/2024 1:31 PM CDT Rafa Waller MD LAB - PATHOLOGY/CYT OLOGY ORDERABLES Final Result Performing Organization Address City/State/[facility] Phone Number [facility] PATH[facility] LAB [address] [phone] documented in this encounter Visit Diagnoses Diagnosis Lymphocytosis (symptomatic) documented in this encounter Care Teams Business Services Clerk Relationship Specialty Start Date End Date Justin Noble MD [address] [place] [address] PCP - General Family Medicine 11/14/13 Justin Noble MD [address] [place] [address] PCP - Attributed-[facility] 12/13/16 Gisselle Hammer MD [address] [place] [address] Endocrinology 01/03/13 Johnnie Buck OD [address] [place] [id number] Oil And Gas Specialist 12/25/13 Riley Oliver MD [address] [facility] [address] [place] [address] Nephrology 12/25/13 Carlos Sullivan MD [address] [facility] 1 [place] [address] Pulmonary Disease 12/25/13 Oneal Obando MD [address] [facility] [address] [place], [place] [phone] Cardiology 10/27/21 Danitza Pruitt Care Coordination Specialist Care Management 03/13/24 03/13/24 Mckenzie Carcamo Care Coordination Specialist Care Management 01/02/25 01/02/25 documented as of this encounter
--- OUTSIDE RECORDS SUMMARY | 2025-04-05 09:40 | XMS_ITS | Encounter Summary ---
Author Organization [facility] Address [address] [place] [address] Phone Care Team Providers Care Plastics Nurse Name Role Phone James Thomas MD Unavailable [phone] Justin Noble MD Primary Care Provider Encounter Details Date Type Department Care Team (Latest Contact Info) Description 01/31/2023 Orders Only [facility] Scanning, Provider Social History Tobacco Use Types Packs/Day Years Used Date Smoking Tobacco: Former Cigarettes Smokeless Tobacco: Never Sex and Gender Information Value Date Recorded Sex Assigned at Not on file Legal Sex Male 5:33 PM UNDERGROUND HEAVY EQUIPMENT OPERATOR Gender Identity Not on file Sexual Orientation Not on file documented as of this encounter Plan of Treatment Not on file documented as of this encounter Procedures Procedure Name Priority Date/Time Associated Diagnosis Comments SCAN - LABS 01/31/2023 SCAN - LABS 01/31/2023 documented in this encounter Results * SCAN - LABS (01/31/2023) us Provider Scanning Final Result * SCAN - LABS (01/31/2023) us Provider Scanning Final Result documented in this encounter Visit Diagnoses Not on filedocumented in this encounter Care Teams Plastics Nurse Relationship Specialty Start Date End Date Justin Noble MD [address] [facility] 305 [place] [address] PCP - General Family Medicine 3/1/23 James Thomas MD [address] [address] Referring Physician Hematology 09/02/22 documented as of this encounter
--- OUTSIDE RECORDS SUMMARY | 2025-04-05 09:40 | XMS_ITS | Clinical Summary ---
Author Organization [facility] Address [address] [place] [address] Phone Care Team Providers Care Woven Wood Shade Assembler Name Role Phone Justin Noble MD Primary Care Provider Allergies No known active allergies Medications acyclovir (ZOVIRAX) 200 MG capsule 2 Active allopurinol (ZYLOPRIM) 100 MG tablet 2 Active amLODIPine (NORVASC) 10 MG tablet 2 Active aspirin (EQ Aspirin Adult Low Dose) 81 MG EC tablet Take 81 mg by mouth daily Active atorvastatin (LIPITOR) 80 MG tablet Take 80 mg by mouth every night 2 Active dexamethasone (DECADRON) 4 MG tablet TAKE 10 TABLETS EVERY Monday 2 Active famotidine (PEPCID) 40 MG tablet Take 40 mg by mouth 1 (one) time each day 2 Active OneTouch Verio test strip USE TO TEST BLOOD SUFARS THREE TIMES DAILY BEFORE MEALS 2 Active HYDROcodone-alberto taminophen (NORCO) 5-325 MG per tablet 2 Active Toujeo Max SoloStar 300 UNIT/ML solution pen-injector ADMINISTER 120 UNITS UNDER THE SKIN EVERY NIGHT AT BEDTIME 2 Active HumaLOG KWIKPEN 200 UNIT/ML solution pen-injector injection INJECT 45 UNITS UNDER SKIN THREE TIMES DAILY WITH MEALS 2 Active B-D ULTRAFINE III SHORT PEN 31G X 8 MM misc USE TO INJECT FOUR TIMES DAILY 2 Active Lancets (OneTouch Delica Plus [id number]) misc USE TO CHECK BLOOD SUGAR FOUR TIMES DAILY 2 Active latanoprost (XALATAN) 0.005 % ophthalmic solution INSTILL 1 DROP INTO BOTH EYES EVERY NIGHT AT BEDTIME IN PLACE OF LUMIGAN 2 Active metoprolol tartrate (LOPRESSOR) 50 MG tablet Take 50 mg by mouth 2 (two) times a day 2 Active Active Problems Problem Noted Date Diagnosed Date Chronic kidney disease stage 3B 04/07/2022 Hypercalcemia 04/07/2022 Multiple myeloma not having achieved remission 0 03/09/2022 Insulin treated type 2 diabetes mellitus 020 Overview (04/07/2022): Gavin Medellin, AWS ARCHITECT-INSURANCE DEFENSE PAR[place]GAL 02/12/2020 Essential hypertension 04/04/2019 Obstructive sleep apnea syndrome 12/12/2014 Immunizations Immunization Administration Dates Next Due Influenza Split High Dose Pr eservative Free IM 04/09/2020,04/04/2019,04/05/2018,08/20 Influenza, Injectable, Quadrivalent 05/11/2021 Influenza, Injectable, Quadr ivalent, Preservative Free 03/24/2016,07/23/2015,06/13/2014 Influenza, Unspecified 08/20/2017 Pneumococcal Conjugate 13-Valent 11/19/2015 Pneumococcal Polysaccharide 06/13/2014 Td, Unspecified 04/16/2019 Tdap 06/13/2014 Social History Tobacco Use Types Packs/Day Years Used Date Smoking Tobacco: Never Smokeless Tobacco: Never Alcohol Use Standard Drinks/Week Comments Not Currently 0 (1 standard drink = 0.6 oz pur e alcohol) Sex and Gender Information Value Date Recorded Sex Assigned at Not on file Legal Sex Male 12:24 PM MDT Gender Identity Not on file Sexual Orientation Not on file Last Filed Vital Signs Vital Sign Reading Time Taken Comments Blood Pressure 122/58 04/07/2022 11:27 AM CDT Pulse 72 04/07/2022 11:27 AM CDT Temperature 36.5 C (97.7 F) 04/07/2022 11:27 AM CDT Respiratory Rate - - Oxygen Saturation - - Inhaled Oxygen Concentration - - Weight 123 kg (271 lb) 04/07/2022 11:27 AM CDT Height 182.9 cm (6') 04/07/2022 11:27 AM CDT Body Mass Index 36.75 04/07/2022 11:27 AM CDT Plan of Treatment Health Maintenance Due Date Last Done Comments COVID-19 Vaccine (2024- 6 season) 2025 09/28/2020, 08/31/2020 Influenza Vaccine (#1) 2025 8, 03/24/2016, 07/23/2015, Additional history exists Pneumococcal PPSV23/PCV13 65 + Years / Low and Medium Risk Completed 11/19/2015, 06/13/2014 Insurance [employer] MEDICARE Advance Directives For more information, please contact: [phone] (7AM - 4PM [facility], 7 days a week) Documents on File Type Date Recorded Patient 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
--- OUTSIDE RECORDS SUMMARY | 2025-04-05 09:40 | XMS_ITS ---
Author Organization [facility] Address [address] [place] [address] Care Team Providers Care Mica Sizer Name Role Phone James Thomas MD Unavailable [phone] Justin Noble MD Primary Care Provider [phone] Active Problems Patient Care Coordination No te [...] Medical Assistants Post-Discharge Follow-Up Living Situation/Distance from [facility] 30 min Caregiver Lab/Transfusion Frequency Venous Access & Care tunneled central venous catheter Local Oncologist Contact Phone: Fax: Post-Discharge Office Visit (H30) [facility] [place] 02/27 Miscellaneous Notes: Problem Noted Date Diagnosed Date Hx of autologous stem cell transplant 07/01/2024 Chemotherapy-induced neutropenia 02/27/2023 History of multiple myeloma 02/06/2023 Obesity, morbid 01/23/2023 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 Apheresis Cellular Therapy Cell Collection* Plan Start Date:01/31/2023 Plan Provider:Juan José Garcia MD Linked Problems Autologous donor of stem tristen lsMultiple myeloma not having achieved remission (HCC) Treatment Medications No medications scheduled. BMT Adult Blood and Platelet Administration for Inpatient* Plan Start Date: 02/17/2023 Plan Provider:Magaly Groves NP Linked Problems Multiple myeloma not having achieved remission (HCC) Treatment Medications No medications scheduled. Filgrastim or BIOSIMILAR Subcutaneous* Plan Start Date:02/27/2023 Plan Provider:Juan José Garcia MD Linked Problems Multiple myeloma, remission status unspecified (HCC)Chemotherapy-induced neutropenia Treatment Medications No medications scheduled. IV Maintenance Therapy Plan* Plan Start Date:02/22/2023 Plan Provider:Juan José Garcia MD Linked Problems Multiple myeloma not having achieved remission (HCC) Treatment Medications No medications scheduled. Past Treatment and Therapy Plans Oncology Chemotherapy Treatment Plan Name Start Date Discontinue Date Treatment Medications Discontinue Reason Plan Provider Cycles BMT - Standard Hematopoietic Progenitor Cell Mobilization (Auto) Standard GCSF and Plerixafor (Mozobil) 3 02/27/2023 plerixafor (MOZOBIL) Therapy Complete Juan José Stephenson MD 1 of 1 cycle started Oncology Treatment (2) Plan Name Start Date Discontinue Date Treatment Medications Discontinue Reason Plan Provider Cycles INPT - Melphalan - BMT 02/06/2023 02/27/2023 melphalan (ALKERAN) IVPB in 250 mL Orders Juan José Ayoub MD 1 of 1 cycle started Lifetime Dose Tracking * Chemical Lifetime Dose Automatic Entry Manual Entr y Fluoro Time 0.5 minutes 0.5 minutes 0 minutes Air kerma at the reference point (Ka,r) 16 mGy 1 6 mGy 0 mGy DLP 1,191 mGycm 1,191 mGycm 0 mGycm
--- OUTSIDE RECORDS SUMMARY | 2025-04-05 09:40 | XMS_ITS | Clinical Summary ---
Author Organization [facility] Address [address] [place] [address] Care Team Providers Care Wheel Assembler Name Role Phone Gisselle Hammer MD Unavailable Justin Noble MD Primary Care Provider [phone] Johnnie Buck OD Unavailable [phone] Riley Oliver MD Unavailable Carlos Sullivan MD Unavailable [phone] Justin Noble MD Unavailable [phone] Oneal Obando MD Unavailable Source Comments [facility],non-owned Affiliates and Associated Physician Practices is amultiple site organization consisting of ambulatory clinics and hospital sitesin [place], [place], [place] and [place]. This disclosure is being madepursuant to the Care Everywhere program and may not contain all information available regarding this patient. Last updated 18.[facility] Allergies No known active allergies Medications * Be aware that medications may not be up to date on this document. Alwaysverify current medications with the patient. fish oil/omega-3 fatty acids (PROMEGA;CARDI-O ROBBY 3) 1000 MG capsuleIndicatio ns:Hyperlipidemi a Take 2 Caps by mouth 2 times daily with morning and evening meal. 0 12/26/19 14 Active acyclovir (Zovirax) 200 MG capsule Take 2 (two) capsules by mouth once daily 05/08/20 22 Active allopurinol (Zyloprim) 100 MG tablet Take 1 (one) tablet by mouth once daily 04/04/20 22 Active aspirin EC (Ecotrin) 81 MG tablet Take 1 (one) tablet by mouth once daily Active latanoprost (Xalatan) 0.005 % ophthalmic solution INSTILL 1 DROP INTO BOTH EYES EVERY NIGHT AT BEDTIME IN PLACE OF LUMIGAN 10 mL 5 09/16/19 23 Active FERROUS SULFATE PO Take 2 tablets by mouth once daily Active Continuous Blood Gluc Scissors Sharpener (FreeStyle Juliette 2 Switchback Systm) DEVIIndications: Diabetes mellitus type 2, insulin dependent (HCC) USE DIRECTED EVERY DAY 1 Each 07/24/19 24 Active TRUEplus 5-Bevel Pen [place] 31G X 8 MM needleIndication s:Diabetes mellitus type 2, insulin dependent ([facility]) USE TO INJECT FOUR TIMES DAILY 200 Each 04/04/20 24 Active Continuous Glucose Sensor (FreeStyle Juliette 2 Sensor Systm) MISCIndications: Diabetes mellitus type 2, insulin dependent ([facility]) CHANGE SENSOR EVERY 14 DAYS 2 Each 1 04/26/20 24 Active lisinopril (Prinivil; Zestril) 40 MG tablet TAKE 1 TABLET BY MOUTH EVERY DAY 90 tablet 2 09/13/19 25 Active triamterene-hydr oCHLOROthiazide (Maxzide) 75-50 MG tabletIndication s:Hypertension Take 1 (one) tablet by mouth once daily Reasons: High Blood Pressure 90 tablet 3 09/18/19 25 Active blood glucose (OneTouch Verio) test stripIndications :Type 2 diabetes mellitus with hyperglycemia, with long-term current use of insulin ([facility]) Use 3 times daily 300 strip 3 09/17/19 25 Active Lancets (ONETOUCH DELICA PLUS 33G EXTRA FINE LANCET)Indicatio ns:Type 2 diabetes mellitus with stage 3b chronic kidney disease, with long-term current use of insulin ([facility]) USE TO TEST BLOOD SUGAR FOUR TIMES DAILY 400 Each 11/12/19 25 Active insulin pen needle (BD Pen Needle Mini Ultrafine) 31G X 5 MM needleIndication s:Diabetes mellitus type 2, insulin dependent ([facility]) USE TO INJECT FOUR TIMES DAILY 200 Each 3 12/11/19 25 Active metoprolol tartrate IR (Lopressor) 50 MG tabletIndication s:Essential hypertension TAKE 1 TABLET BY MOUTH TWICE DAILY 180 tablet 1 12/16/19 25 Active amLODIPine (Norvasc) 10 MG tablet TAKE 1 TABLET BY MOUTH DAILY 90 tablet 12/13/19 25 Active Ozempic, 2 MG/DOSE, 8 MG/3ML penIndications:D iabetes mellitus type 2, insulin dependent (HCC) Inject 2 (two) mg subcutaneously every 7 days (once a week) 12 mL 5 12:38 PM CDT 01/04/20 25 Active NovoLOG FLEXPEN pen Inject 34 (thirty four) Units subcutaneously 3 times daily before meals 120 mL 5 10:53 AM CDT 01/21/20 25 Active Tresiba FlexTouch 200 UNIT/ML pen Inject 86 (eighty six) Units subcutaneously once daily 60 mL 5 10:53 AM CDT 01/21/20 25 Active atorvastatin (Lipitor) 80 MG tablet TAKE 1 TABLET BY MOUTH AT BEDTIME 90 tablet 02/27/20 25 Active Active Problems Problem Noted Date Diagnosed Date Hx of autologous stem cell transplant 08/16/2024 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 0 01/23/2023 Multiple myeloma not having achieved remission 0 03/09/2022 Diabetes mellitus type 2, insulin dependent 02/08 Overview (03/02/2020): Gavin Medellin, SPORTS MARKETING SPECIALIST-DREDGE MECHANIC 02/12/2020 Hypertension associated with type 2 diabetes yuilet litus 03/02/2020 Overview (03/02/2020): Justin Noble MD 11/26/2019 Hyperlipidemia associated with type 2 diabetes nicki aisha 03/02/2020 Overview (03/02/2020): Justin Noble MD 11/26/2019 SANDRA on CPAP 12/12/2014 Stage 3b chronic kidney disease 09/11/2014 Overview (05/20/2022): GFR 3-2-18, 8-17-17 Type 2 diabetes mellitus wit h stage 3 chronic kidney disease 03/03/2014 Long-term insulin use 03/03/2014 Hyperlipidemia 01/03/2013 Resolved Problems Problem Noted Date Diagnosed Date Resolved Date Chemotherapy-induced neutropenia 02/27/2023 08/11/19 24 08/11/2023 Secondary malignant neoplasm of bone 01/23/2023 08/11/2023 Obesity, morbid 01/23/2023 08/11/2023 BMI 40.0-44.9, adult 07/26/2016 021 M obesity 07/26/2016 10/08/2020 Encounters Date Type Department Care Team Description 03/19/2025 Results Follow-Up [facility] - Endocrinology [address] [place] [address], [address] [place] [address] Gavin Medellin APRN-DREDGE MECHANIC 03/13/2025 11:00 AM CDT Office Visit [facility] Endocrinology [address] [place] [address], [address] [place] [phone] Gavin Medellin SPORTS MARKETING SPECIALIST-DREDGE MECHANIC Type 2 diabetes mellitus with stage 3b chronic kidney disease, with long-term current use of insulin (HCC) (Primary Dx); Primary hypertension; Mixed hyperlipidemia; Multiple myeloma not having achieved remission (HCC) 02/26/2025 Refill [facility] - Endocrinology [address] [place] [address], [address] [place] [phone] Gisselle Hammer MD Refill Request 01/20/2025 Telephone [facility] - Endocrinology [address] [place] [address], [address] [place] [phone] Gisselle Hammer MD Patient Assistance Program 01/03/2025 Telephone [facility] - Endocrinology [address] [place] [address], [address] [place] [address] Gisselle Hammer MD Opened In Error 01/03/2025 Telephone [facility] - Endocrinology [address] [place] [address], [address] [place] [address] Gisselle Hammer MD Patient Assistance Program 01/03/2025 Telephone [facility] - Endocrinology [address] [place] [address], [address] [place] [phone] Gisselle Hammer MD Patient Assistance Program from Last 3 Months Immunizations Immunization Administration Dates Next Due Covid Moderna primary monova lent 12+ yr 0.5mL 04/07/2023,09/28/2020,08/31/2020 INFLUENZA VACCINE 04/07/2023, 2,05/11/2021,2017 INFLUENZA VACCINE, ADJUVANTE D, QUADR. (FLUAD QUADRIVALENT; 65Y+) (AIIV4) 05/11/2021 INFLUENZA VACCINE, HIGH-DOSE , QUADR. (FLUZONE HIGH-DOSE QUADRIVALENT; 65Y+), 0.7 ML (HD-IIV4) 04/09/2020,04/04/2019,04/05/2018,2017 INFLUENZA VACCINE, QUADR. (F LUZONE; FLULAVAL; FLUARIX; AFLURIA QUADRIVALENT; 6MO+), 0.5 ML (IIV4) 03/24/2016,07/23/2015,06/13/2014 PNEUMOCOCCAL PPSV23 06/13/2014 Pneumococcal Pcv13 Conj 11/19/2015 TD VACCINE 04/16/2019 TDAP (7yrs+) 06/13/2014 Td (Adult), 2 Lf Tetanus Tox oid, Adsorbed, Pf 04/16/2019 Family History Medical History Relation Name Comments Diabetes Brother 3 Arthritis - Rheumatoid Father Heart Failure Father Stroke Father Arthritis - Rheumatoid Mother Diabetes Mother Relation Name Status Comments Brother 1 Alive Brother 2 Alive Brother 3 Father Mother Sister 1 Alive Sister 2 Alive Sister 3 Alive Sister 4 Alive Sister 5 Alive Sister 6 Alive Sister 7 Alive Social History Tobacco Use Types Packs/Day Years Used Date Smoking Tobacco: Former Cigarettes 1 10 0 07/10/1968 - 07/10/1978 Smokeless Tobacco: Former Tobacco Cessation:Counseling Given: Not Answered Alcohol Use Standard Drinks/Week Comments Yes 0 (1 standard drink = 0.6 oz pur e alcohol) rare PHQ-2 Answer Date Recorded Patient Health Questionnaire-2 Score 0 08/16/2024 Sex and Gender Information Value Date Recorded Sex Assigned at Not on file Legal Sex Male 6:30 AM MANAGER ACTION Gender Identity Not on file Sexual Orientation Not on file 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 Not on file Not on file Last Filed Vital Signs Vital Sign Reading Time Taken Comments Blood Pressure 130/60 03/13/2025 11:05 AM CDT Pulse 90 08/16/2024 10:52 AM MANAGER ACTION Temperature 36.2 C (97.2 F) 08/16/2024 10:52 AM MANAGER ACTION Respiratory Rate 16 08/16/2024 10:5 2 AM MANAGER ACTION Oxygen Saturation 99% 08/16/2024 10: 52 AM MANAGER ACTION Inhaled Oxygen Concentration - - Weight 130.7 kg (288 lb 3.2 oz) 025 11:05 AM CDT Height 182.9 cm (6') 08/16/2024 10:52 AM MANAGER ACTION Body Mass Index 39.09 08/16/2024 10:52 AM MANAGER ACTION Plan of Treatment Upcoming Encounters Date Type Department Care Team (Late st Contact Info) Description 06/23/2025 11:00 AM MANAGER ACTION Office Visit [facility] - Endocrinology [address], [address] [place] [address] Gavin Medellin, SPORTS MARKETING SPECIALIST-DREDGE MECHANIC [address], [address] [place] [address] 08/15/2025 10:40 AM MANAGER ACTION Office Visit [facility] - Family Medicine [address] [place] [address] Justin Noble MD [address] [place] [address] Health Maintenance Due Date Last Done Comments Respiratory Syncytial Virus (RSV) Vaccine Pt: or over 60 yrs (1 - 1-dose 75+ series) 12/29/2023 DIABETES-FOOT EXAM WITH MONOFILAMENT 02/22/2025 02/23/2024, 01/23/2023, 08/24/2021, Additional history exists COVID-19 VACCINE ( season) 2025 04/07/2023, 06/29/2021, 09/28/2020, Additional history exists INFLUENZA VACCINE (#1) 2025 , 04/20/2022, 05/11/2021, Additional history exists DIABETES-HGB A1C 09/10/2025 03/13/2025, , 09/02/2024, Additional history exists DIABETES-SERUM CREATININE 02/25/20262024, 12/04/2024, 03/05/2024, Additional history exists DIABETES - URINE PROTEIN SCREENING 03/17/2026 03/17/2025, 08/11/2023, 03/11/2022, Additional history exists DIABETES RETINOPATHY SCREENING 10/24/2026 10/24/2024, 02/08/2024, 07/20/2023, Additional history exists DTAP/TDAP/TD VACCINES (4 - Td or Tdap) 04/16/2029 04/16/2019, 04/16/2019, 06/13/2014 ZOSTER VACCINE (1 of 2) 10/12/2039 Post poned from 12/29/1967 (Patient Directed) PNEUMOCOCCAL VACCINE 50+ Completed 11/19/2015, 11/2013 HEPATITIS C SCREENING Completed 01/09/2023 , 12/20/2022, 07/28/2016 DEPRESSION SCREENING Completed 08/16/2024, 08/11/2023, 01/23/2023, Additional history exists MEDICARE AWV CALENDAR YEAR Completed 08/16/2024, 08/11/2023, 08/11/2023, Additional history exists HEPATITIS B VACCINE Aged Out No longe r eligible based on patient's age to complete this topic HIB VACCINE Aged Out No longer eligi ble based on patient's age to complete this topic HPV VACCINE Aged Out No longer eligi ble based on patient's age to complete this topic MENINGOCOCCAL (Group B) VACCINE SHARED DECISION-MAKING Aged Out No longer eligible based on patient's age to complete this topic MENINGOCOCCAL GROUPS A/C/Y/W VACCINE Aged Out No longer eligible based on patient's age to complete this topic Goals Goal Patient Goal Type Associated Problems Recent Progress Patient-Stated? Author Blood Pressure < 140/90 Blood Pressure 130/60(2024 11:05 AM CDT) No Haylie Woods MA Yearly PCP visit Lifestyle No Anali Storey MA HEMOGLOBIN A1C < 7.0 Result Component 6.9( 1:20 PM CDT) No Haylie Woods MA Procedures Procedure Name Priority Date/Time Associated Diagnosis Comments MICROALB/CREAT RATIO URINE RANDOM PANEL Routine 03/17/2025 12:10 PM CDT Type 2 diabetes mellitus with stage 3b chronic kidney disease, with long-term current use of insulin (HCC) LIPID PROFILE REFLEX LDL DIRECT Routine 03/17/2025 12:09 PM CDT Mixed hyperlipidemia HEMOGLOBIN A1C - POINT OF CARE (AMB) Routine 03/13/2025 11:33 AM CDT Type 2 diabetes mellitus with stage 3b chronic kidney disease, with long-term current use of insulin (HCC) GLUCOSE - POINT OF CARE (AMB) STL Routine 03/13/2025 11:10 AM CDT Type 2 diabetes mellitus with stage 3b chronic kidney disease, with long-term current use of insulin (HCC) CREATININE BLOOD (EXTERNAL RESULT ENTRY) Routine 12/04/2024 EYE EXAM 10/24/2024 HEPATITIS C ANTIBODY Routine 07/28/2016 11:39 AM MANAGER ACTION Need for hepatitis C screening test from Last 3 Months or Most Recently Relevant to Health Maintenance Results * MICROALB/CREAT RATIO URINE RANDOM PANEL (03/17/2025 12:10 PM CDT) Creatinine Urine 119.7 Not Estab. mg/dL [facility] ACCOUNT BILL Microalbumin Urine <3.0 Not Estab. ug/mL [facility] ACCOUNT BILL Microalbumin/Crea tinine Ratio <3 0 - 29 mg/g creat [facility] ACCOUNT BILL Comment: Normal: 0 - 29 Moderately increased: 30 - 300 Severely increased: >300 Urine URINE SPECIMEN OBTAINED BY CLEAN CATCH PROCEDURE / Unknown 03/17/2025 12:10 PM CDT 03/17/2025 Narrative [facility] ACCOUNT BILL - 03/18/2025 12:07 PM CDT Performed at: 01 - [facility] [address] [id number] Linseed Oil Temperer: Farzad Hagen PhD, Phone: [phone] Gavin Medellin SPORTS MARKETING SPECIALIST-DREDGE MECHANIC LAB - URINE CHEM ISTRY ORDERABLES Final Result Performing Organization Address City/[facility]/ZIP Co de Phone Number [facility] ACCOUNT BILL [address] [place] [address] * (ABNORMAL) LIPID PROFILE REFLEX LDL DIRECT (03/17/2025 12:09 PM CDT) Cholesterol 114 100 - 199 mg/dL [facility] ACCOUNT BILL Triglycerides 221(H) 0 - 149 mg/dL [facility] ACCOUNT BILL HDL Cholesterol 30(L) >39 mg/dL [facility] ACCOUNT BILL VLDL Calculated 36 5 - 40 mg/dL [facility] ACCOUNT BILL LDL Calculated 48 0 - 99 mg/dL [facility] ACCOUNT BILL Cholesterol/HDL Ratio 3.8 0.0 - 5.0 ratio [facility] ACCOUNT BILL Comment: T. Chol/HDL Ratio Men Women 1/2 Avg.Risk 3.4 3.3 Avg.Risk 5.0 4.4 2X Avg.Risk 9.6 7.1 3X Avg.Risk 23.4 11.0 LDL/HDL Ratio 1.6 0.0 - 3.6 ratio [facility] ACCOUNT BILL Comment: LDL/HDL Ratio Men Women 1/2 Avg.Risk 1.0 1.5 Avg.Risk 3.6 3.2 2X Avg.Risk 6.2 5.0 3X Avg.Risk 8.0 6.1 Blood BLOOD SPECIMEN / Unknown 03/17/2025 12:09 PM CDT 03/17/2025 Narrative [facility] ACCOUNT BILL - 03/18/2025 9:35 AM CDT Performed at: 01 - [facility] [id number] [employer] Temperer: Farzad Hagen PhD, Phone: [phone] Gavin Medellin SPORTS MARKETING SPECIALIST-DREDGE MECHANIC LAB - CHEMISTRY ORDERABLES Final Result Performing Organization Address City/[facility]/ZIP Co de Phone Number [facility] ACCOUNT BILL [place] [address] * HEMOGLOBIN A1C - POINT OF CARE (AMB) (03/13/2025 11:33 AM CDT) Hemoglobin A1c POCT 6.4 % [facility] Expiration Date [id number] [facility] Lot # [id number] [facility] QC Verified Yes Yes [facility] Blood BLOOD SPECIMEN / Unknown 03/13/2025 11:33 AM CDT Gavin Medellin SPORTS MARKETING SPECIALIST-DREDGE MECHANIC LAB - POINT OF C ARE ORDERABLES Final Result [facility] [address] [place] [address], [facility] [phone] * (ABNORMAL) GLUCOSE - POINT OF CARE (AMB) STL (03/13/2025 11:10 AM CDT) Glucose 116(A) 60 - 100 mg/dL [facility] Lot # [id number] [facility] Expiration Date [id number] [facility] QC Verified Yes Yes [facility] Blood BLOOD SPECIMEN / Unknown 03/13/2025 11:10 AM CDT Gavin Medellin SPORTS MARKETING SPECIALIST-DREDGE MECHANIC LAB - POINT OF C ARE ORDERABLES Final Result [facility] [address] [place] [address], [facility] [phone] * (ABNORMAL) CREATININE BLOOD (EXTERNAL RESULT ENTRY) (12/04/2024) Creatinine (EXTERNAL RESULT) 2.10 mg/dl Blood BLOOD SPECIMEN / Unknown 12/04/2024 us Provider Unknown LAB - CHEMISTRY ORDERABLES Amanda l Result * EYE EXAM (10/24/2024) Anatomical Region Laterality Modality Other 10/24/2024 Narrative 10/24/2024 Ordered by an unspecified provider. us Scanned Document SCANNING ONLY Final Result * HEPATITIS C ANTIBODY (07/28/2016 11:39 AM MANAGER ACTION) Hepatitis C Antibody Non Reactive Non Reactive [facility] ACCOUNT BILL Comment: Non Reactive - Antibodies to Hepatitis C virus (HCV) were no t detected, result does not exclude early acute HCV infection. Blood BLOOD SPECIMEN / Unknown 07/28/2016 11:39 AM MANAGER ACTION 07/28/2016 Narrative Resulting Agency Comment [facility] [address] [facility] [phone] us Justin Noble MD LAB - CHEMISTRY ORDERABLES Fin al Result Performing Organization Address City/State/[facility] Co de Phone Number [facility] ACCOUNT BILL [address] [place] [address] from Last 3 Months or Most Recently Relevant to Health Maintenance Insurance [facility] MANAGED MEDICARE ADV [facility] MANAGED MEDICARE ADV Care Teams Wheel Assembler Relationship Specialty Start Date End Date Justin Noble MD [address] [place] [phone] PCP - General Family Medicine 11/14/13 Justin Noble MD [address] [place] [phone] PCP - Attributed-[facility] [place] 12/13/16 Gisselle Hammer MD [address] [place] [address] [address] [place] [address] Endocrinology 01/03/13 Johnnie Buck OD [address] [place] [address] Hardscape Foreman 12/25/13 Riley Oliver MD [address] [place] [address] Nephrology 12/25/13 Carlos Sullivan MD [address] [place] [phone] Pulmonary Disease 12/25/13 Oneal Obando MD [facility] [address] [place] [address] Cardiology 10/27/21
--- OUTSIDE RECORDS SUMMARY | 2025-04-05 09:40 | XMS_ITS | Patient Health Record ---
Author Organization [facility] Address [address] [place] [address] Care Team Providers Care Industrial Court Magistrate Name Role Phone Josue JEAN-BAPTISTE, Davis Primary Care Provider Unava ilable Reason For Referral No Information Medications Medication SIG (Take, Route, Frequency, Duration) Notes Start Date End Date Status Triamterene-HCTZ 25-50 MG 1/2 tablet in the morning Orally Once a day; Duration: 30 day(s) Active Fish Oil 1000 MG 1 capsule Orally Twi ce a day; Duration: 30 day(s) Active Insulin Aspart 100 UNIT/ML Subcutaneous Active Lipitor 40 MG 1 tablet Orally Once a day; Duration: 30 day(s) Active Lopressor 50 MG 1 tablet Orally Twic e a day; Duration: 30 day(s) Active Aspirin 81 MG 1 tablet Orally Once a day; Duration: 30 day(s) Active Lisinopril 10 MG 1 tablet Orally Once a day; Duration: 30 day(s) Active Problems Problem Type SNOMED Code ICD Code Onset Dates Problem Status W/U Status Risk Notes Problem Type II diabetes mellitus without complication (309177559) Diabetes mellitus without mention of complication, type II or unspecified type, not stated as uncontrolled (250.00) Active confirmed Problem Chronic kidney disease stage 2 (110202254) Chronic kidney disease, Stage II (mild) (585.2) Active confirmed The azotemia is overall stable with a creatinine level of 1.45 down from 1.9 and a prior level of 1.4 respectively. As such, the kidney function is overall unchanged, with the assisted renal prognosis quite favorable. Problem Hypertension (29811268) Hypertension (997.91) Active confirmed The blood pressure appears reasonable under the circumstances , while his medications appear to be appropriate as well. Plan Of Treatment No Information Insurance Providers Payer Name Payer Address Payer Phone Subscriber Number Group Number Insured Name Patient Relationship to Insured Coverage Start Date Coverage End Date [employer] [address] [address] [place], [place] [id number] Willam Black Self - patient is the insured 4 [employer] [address] [place], [place] [id number] Willam Black Self - patient is the insured Medical (General) History Medical History History ICD Code HTN DM
--- OUTSIDE RECORDS SUMMARY | 2025-04-05 09:40 | XMS_ITS | Encounter Summary ---
Author Organization [facility] Address [facility] [place] [address] Care Team Providers Care Zipper Sewing Machine Operator Name Role Phone Gisselle Hammer MD Unavailable Justin Noble MD Primary Care Provider Johnnie Buck OD Unavailable [phone] Riley Oliver MD Unavailable Carlos Sullivan MD Unavailable Justin Noble MD Unavailable [phone] Oneal Obando MD Unavailable [phone] Shasha Segovia MD Unavailable Lisbeth Butcher RN Unavailable [phone] Danitza Pruitt Unavailable Mckenzie Carcamo Unavailable Encounter Details Date Type Department Care Team (Late st Contact Info) Description 08/23/2022 Lab Requisition [facility] Care Pathology Lab [address] [place] [address] Criss Anderson MD [facility] [address] [address] Illness, unspecified Social History Tobacco [...] on file Legal Sex Male 6:30 AM LANDCARE OFFICER Gender Identity Not on file Sexual Orientation Not on file 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 Not on file Not on file documented as of this encounter Plan of Treatment Upcoming Encounters Date Type Department Care Team (Late st Contact Info) Description 06/23/2025 11:00 AM LANDCARE OFFICER Office Visit [facility] - Endocrinology [address], [address] [place] [address] Gavin Medellin, CONTRACT ADMINISTRATIVE ASSISTANT-THREAD MILLING MACHINE SET UP OPERATOR [address], [address] [place] [address] 08/15/2025 10:40 AM LANDCARE OFFICER Office Visit [facility] - Family Medicine [address] [place] [address] Justin Noble MD [address] [place] [address] documented as of this encounter [...] Diagnosis Comments BONE MARROW BIOPSY (STL) Routine 08/22/2022 8:00 AM LANDCARE OFFICER Illness, unspecified documented in this encounter Results * BONE MARROW BIOPSY (STL) (08/22/2022 8:00 AM LANDCARE OFFICER) Case Report Bone Marrow Patholog y Report Case: [id number] Authorizing Provider: Criss Anderson MD Collected: 08/22/2022 08:00 AM Ordering Location: [facility] Pathology Lab Received: 08/23/2022 01:16 PM Pathologist: Jerod Castro MD Specimen: Bone Marrow Clot 08/25/2022 9:33 AM [facility] Final Diagnosis Bone marrow, aspirate, clot section, and core biopsy: - Normocellular marrow with maturing trilineage hematopoiesis and persistent mild involvement by plasma cell neoplasm (~7-10% of marrow cellularity). - See description. Peripheral blood smear: - Microcytic anemia. - See description. 08/25/2022 9:33 AM [facility] at [address]33 LANDCARE OFFICER AP Comment Despite the negativi ty for a clonal plasma cell population by flow cytometry, the core does show increased plasma cells, consistent with persistent mild involvement by plasma cell neoplasm. The plasma cells are too many for a reactive plasmacytosis. 08/25/2022 9:33 AM [facility] Peripheral Smear Description RBC: microcytic anemia. WBC: normal in number and morphology. Platelets: normal in number and morphology. 08/25/2022 9:33 AM [facility] Bone Marrow Aspirate Differential count (200 cells): 0% blasts, 41% maturing myeloid precursors, 38% erythroid progenitors, 2% monocytes, 1% eosinophils, 16% lymphocytes, 0% plasma cells. Specimen quality: adequate. Spicules: numerous. Trilineage Hematopoiesis: present. Myeloid:Erythroid ratio: normal. Myeloid Maturation: normal. Erythroid Maturation: normal. Megakaryocyte morphology: normal size. 08/25/2022 9:33 AM [facility] Bone Marrow Core Biopsy and Clot Section Description Specimen quality: adequate with 1.7 cm of evaluable marrow. Cellularity: 40 % Trilineage Hematopoiesis: present. Myeloid to Erythroid ratio: normal. Myeloid maturation and localization: normal. Erythroid maturation and localization: normal. Megakaryocyte number: normal. Megakaryocyte distribution: normal. Lymphoid aggregates: absent. Bone trabeculae: normal. Blood vessels: normal. Plasma cells: Small clusters of plasma cells. Immunohistochemistry is performed to assess staining cells in an architectural context. CD138 highlights increased plasma cells, in clusters and singly dispersed, 7-10% of overall cellularity. In situ hybridization for kappa and lambda mRNA did not work on this decalcified core. Storage iron (by special stain): decreased in this decalcified specimen. Sideroblastic iron (by special stain): no ring sideroblasts. 08/25/2022 9:33 AM [facility] Flow Cytometry Summary Bone marrow, flow cytometric immunophenotypic analysis ([id number]): - No clonal B cell, plasma cell, or increased blast population identified - See interpretation 08/25/2022 9:33 AM [facility] Clinical History Multiple myeloma. 08/25/2022 9:33 AM [facility] Materials Received Received are 14 slides and one block (A1) labeled [id number] along with a copy of the outside pathology report. [place] [address]. All original materials are returned to the referring institution, along with a copy of our final report. 08/25/2022 9:33 AM [facility] Disclaimer The performance characteristics of all immunohistochemical and indirect immunofluorescence stains (if any) cited in this report were determined by the Histopathology Laboratory of [facility]. Some of these tests were developed by [...] and interpreted by the attending (teaching) pathologist. 08/25/2022 9:33 AM [facility] Embedded Images 08/25/2022 9:33 AM [facility] Pathology/Cytolo gy BONE MARROW CLOT SPECIMEN / Unknown 08/22/2022 8:00 AM LANDCARE OFFICER 08/23/2022 1:16 PM LANDCARE OFFICER us Criss Anderson MD LAB - PATHOLOGY/CYTOLOGY ORDERAB LES Final Result [facility] PATHOLOGY [facility] [address] [place] [address], [facility] [phone] documented in this encounter Visit Diagnoses Diagnosis Illness, unspecified documented in this encounter Care Teams Zipper Sewing Machine Operator Relationship Specialty Start Date End Date Justin Noble MD [address] [place] [address] PCP - General Family Medicine 11/14/13 Justin Noble MD [address] [place] [address] PCP - Attributed-[facility] 12/13/16 Shasha Segovia MD [address] [place] [address] PCP - [facility] 08/16/22 10/24/22 Bautista-Gisselle Alcala MD [address] [place] [address] Endocrinology 01/03/13 Johnnie Buck OD [address] [place] [address] Dry Wall Installer 12/25/13 Riley Oliver MD [address] [place] [address] Nephrology 12/25/13 Carlos Sullivan MD [address] [facility] [address] [place] [phone] Pulmonary Disease 12/25/13 Oneal Obando MD [address] [place] [address] [address] [place] [address] Cardiology 10/27/21 Lisbeth Butcher, SRINIVAS Mechanical Spreader OperatorRoss Furnace Operator 01/25/23 01/25/23 Danitza Pruitt Care Coordination Specialist Care Management 03/13/24 03/13/24 Mckenzie Carcamo Care Coordination Specialist Care Management 01/02/25 01/02/25 documented as of this encounter
--- OUTSIDE RECORDS SUMMARY | 2025-04-05 09:40 | XMS_ITS | Encounter Summary ---
Author Organization [facility] [employer] Address [address] [place] [address] Care Team Providers Care Last Code Striper Name Role Phone Justin Noble MD Primary Care Provider [phone] Encounter Details Date Type Department Care Team ([facility] Contact Info) Description 03/31/[address] [facility] Oncology and Hematology - Johnnie [address] [place] [address] James Thomas MD [address] [place] [address] [employer] [address] [place] [address] Benign hypertension Social History Tobacco Use Types Packs/Day Years [...] Encounters Date Type Department Care Team (Late Contact Info) Description 04/07/[address] [facility] Oncology and Hematology - Johnnie [address] [place] [address] James Thomas MD [address] [place] [address] [employer] [address] [place] [address] Multiple myeloma not having achieved remission (CMS/HCC) 05/21/2025 8:30 AM CIVIL ENGINEERING DIRECTOR Office Visit [facility] Oncology and Hematology - Johnnie [address] [place] [address] Diane Cantu MD [address] [place] [address] documented as of this encounter Visit Diagnoses Diagnosis Benign hypertension Essential hypertension, benign Multiple myeloma not having achieved remission (CMS/HCC) Multiple myeloma, without mention of having achieved remission documented in this encounter Care Teams Last Code Striper Relationship Specialty Start Date End Date Justin Noble MD PCP - General Family Practice 03/09/22 documented as of this encounter
--- OUTSIDE RECORDS SUMMARY | 2025-04-05 09:40 | XMS_ITS | Encounter Summary ---
Author Organization [facility] [employer] Address [address] [place] [address] Care Team Providers Care Furniture Removalist Name Role Phone Justin Noble MD Primary Care Provider [phone] Reason for Visit * Reason Comments Med Refill Encounter Details Date Type Department Care Team ([facility] Contact Info) Description 09/27/2022 Refill [facility] Oncology and Hematology - Johnnie [address] [place] [address] James Thomas MD [address] [place] [address] Multiple myeloma not having achieved [...] Coronavirus/COVID-19? No / Unsure 08/31/2022 9:11 AM VACCINATOR documented as of this encounter Plan of Treatment Upcoming Encounters Date Type Department Care Team ([facility] Contact Info) Description 04/07/2025 Orders Only [facility] Oncology and Hematology - Johnnie [address] [place] [address] James Thomas MD [address] [place] [address] Multiple myeloma not having achieved remission (CMS/HCC) 05/21/2025 8:30 AM VACCINATOR Office Visit [facility] Oncology and Hematology [facility] [address] [place] [address] Diane Cantu MD [address] [place] [address] documented as of this encounter Visit Diagnoses Diagnosis Multiple myeloma not having achieved remission (CMS/HCC) Multiple myeloma, without mention of having achieved remission Multiple myeloma not having achieved remission (CMS/HCC) Multiple myeloma, without mention of having achieved remission documented in this encounter Care Teams Furniture Removalist Relationship Specialty Start Date End Date Justin Noble MD PCP - General Family Practice 03/09/22 documented as of this encounter
--- OUTSIDE RECORDS SUMMARY | 2025-04-05 11:47 | XMS_ITS | Encounter Summary ---
Author Organization [facility] Address [facility] [place] [address] Care Team Providers Care Cable Reeler Name Role Phone Gisselle Hammer MD Unavailable [phone] Justin Noble MD Primary Care Provider Johnnie Buck OD Unavailable [phone] Riley Oliver MD Unavailable Carlos Sullivan MD Unavailable [phone] Justin Noble MD Unavailable [phone] Oneal Obando MD Unavailable [phone] Encounter Details Date Type Department Care Team (Late st Contact Info) Description 03/19/2025 Results Follow-Up [facility] - Endocrinology [address], [address] [place] [address] Gavin Medellin, DOLL WIG MAKER-HIM ANALYST [address], [address] [place] [address] Social History Tobacco Use Types [...] on file Legal Sex Male 6:30 AM TWENTY ONE DEALER Gender Identity Not on file Sexual Orientation Not on file 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 Not on file Not on file documented as of this encounter Plan of Treatment Upcoming Encounters Date Type Department Care Team (Late st Contact Info) Description 06/23/2025 11:00 AM TWENTY ONE DEALER Office Visit [facility] - Endocrinology [address], [address] [place] [address] Gavin Medellin, DOLL WIG MAKER-HIM ANALYST [address], [address] [place] [address] 08/15/2025 10:40 AM TWENTY ONE DEALER Office Visit [facility] - Family Medicine [address] [place] [address] Justin Noble MD [address] [place] [address] documented as of this encounter [...] on filedocumented in this encounter Care Teams Cable Reeler Relationship Specialty Start Date End Date Justin Noble MD [address] [place] [address] [address] [place] [address] PCP - General Family Medicine 11/14/13 Justin Noble MD [address] [place] [address] PCP - [facility] 12/13/16 Gisselle Hammer MD [address], [address] [place] [address] Endocrinology 01/03/13 Johnnie Buck OD [address] [place] [address] [address] [place] [address] Wrap Yarn Sorter 12/25/13 Riley Oliver MD [address] [place] [address] [address] [place] [address] Nephrology 12/25/13 Carlos Sullivan MD [address] [place] [address] [place] [phone] Pulmonary Disease 12/25/13 Oneal Obando MD [address] [facility] [place] [address] [place] [address] Cardiology 10/27/21 documented as of this encounter
--- OUTSIDE RECORDS SUMMARY | 2025-04-05 11:47 | XMS_ITS | Encounter Summary ---
Author Organization [facility] [employer] Address [address] [place] [address] Care Team Providers Care Ophthalmic Aide Name Role Phone Justin Noble MD Primary Care Provider [phone] Reason for Visit * Reason Comments Med Refill Encounter Details Date Type Department Care Team ([facility] Contact Info) Description 09/04/2022 Refill [facility] Oncology and Hematology - Johnnie [address] [place] [address] James Thomas MD [address] [place] [address] Multiple myeloma not having achieved [...] Coronavirus/COVID-19? No / Unsure 08/31/2022 9:11 AM BUS STARTER documented as of this encounter Plan of Treatment Upcoming Encounters Date Type Department Care Team ([facility] Contact Info) Description 04/07/2025 Orders Only [facility] Oncology and Hematology - Johnnie [address] [place] [address] James Thomas MD [address] [place] [address] Multiple myeloma not having achieved remission (CMS/HCC) 05/21/2025 8:30 AM BUS STARTER Office Visit [facility] Oncology and Hematology [facility] [address] [place] [address] Diane Cantu MD [address] [place] [address] documented as of this encounter Visit Diagnoses Diagnosis Multiple myeloma not having achieved remission (CMS/HCC) Multiple myeloma, without mention of having achieved remission Multiple myeloma not having achieved remission (CMS/HCC) Multiple myeloma, without mention of having achieved remission documented in this encounter Care Teams Ophthalmic Aide Relationship Specialty Start Date End Date Justin Noble MD PCP - General Family Practice 03/09/22 documented as of this encounter
--- OUTSIDE RECORDS SUMMARY | 2025-04-05 11:47 | XMS_ITS | Encounter Summary ---
Author Organization [facility] Address [address] [place] [address] Phone Care Team Providers Care Aluminum Siding Mechanic Name Role Phone James Thomas MD Unavailable [phone] Justin Noble MD Primary Care Provider [phone] Encounter Details Date Type Department Care Team [...] any clubs o r organizations such as jewish groups, unions, fraternal or athletic groups, or [...] place to sleep or slept in a intermediate (including now)? No 02/08/2023 Personal Safety Answer Date Recorded Have you ever been in or are you currently in a harmful physical or emotional relationship or is someone making you feel afraid or unsafe? Denies 02/27/2023 Sex and Gender Information Value Date Recorded Sex Assigned at Not on file Legal Sex Male 5:33 PM SOAKING TANK WORKER Gender Identity Not on file Sexual Orientation [...] on filedocumented in this encounter Care Teams Aluminum Siding Mechanic Relationship Specialty Start Date End Date Justin Noble MD [address] [place] [address] PCP - General Family Medicine 09/07/22 James Thomas MD [address] [address] Referring Physician Hematology 09/02/22 documented as of this encounter
--- OUTSIDE RECORDS SUMMARY | 2025-04-05 11:47 | XMS_ITS | Encounter Summary ---
Author Organization [facility] Address [address] [place] [address] Phone Care Team Providers Care Vice President Process Name Role Phone James Thomas MD Unavailable [phone] Justin Noble MD Primary Care Provider [phone] Encounter Details Date Type Department Care Team (Latest Contact Info) Description 01/31/2023 Orders Only [facility] Scanning, Provider Social History Tobacco Use Types Packs/Day Years Used Date Smoking Tobacco: Former Cigarettes Smokeless Tobacco: Never Sex and Gender Information Value Date Recorded Sex Assigned at Not on file Legal Sex Male 5:33 PM NEIGHBORHOOD COORDINATOR Gender Identity Not on file Sexual Orientation [...] on filedocumented in this encounter Care Teams Vice President Process Relationship Specialty Start Date End Date Justin Noble MD [address] [facility] [address] [place] [address] PCP - General Family Medicine 3/1/23 James Thomas MD [address] [address] Referring Physician Hematology 09/02/22 documented as of this encounter
--- OUTSIDE RECORDS SUMMARY | 2025-04-05 11:47 | XMS_ITS | Encounter Summary ---
Author Organization [facility] [employer] Address [address] [place] [address] Care Team Providers Care Drum Barker Operator Name Role Phone Justin Noble MD Primary Care Provider [phone] Encounter Details Date Type Department Care Team ([facility] Contact Info) Description 03/31/2025 Orders Only [facility] Oncology and Hematology - Johnnie [address] [place] [address] James Thomas MD [address] [place] [address] [employer] [address] [place] [address] Benign hypertension Social History Tobacco Use [...] (Late Contact Info) Description 04/07/2025 Orders Only [facility] Oncology and Hematology - Johnnie [address] [place] [address] James Thomas MD [address] [place] [address] [employer] [address] [place] [address] Multiple myeloma not having achieved remission (CMS/HCC) 05/21/2025 8:30 AM SAUSAGE CANNER Office Visit [facility] Oncology and Hematology - Johnnie [address] [place] [address] Diane Cantu MD [address] [place] [address] documented as of this encounter Visit Diagnoses Diagnosis Benign hypertension Essential hypertension, benign Multiple myeloma not having achieved remission (CMS/HCC) Multiple myeloma, without mention of having achieved remission documented in this encounter Care Teams Drum Barker Operator Relationship Specialty Start Date End Date Justin Noble MD PCP - General Family Practice 03/09/22 documented as of this encounter
--- OUTSIDE RECORDS SUMMARY | 2025-04-05 11:47 | XMS_ITS | Encounter Summary ---
Author Organization [facility] [employer] Address [address] [place] [address] Care Team Providers Care Microsoft Dynamics Ax Developer Name Role Phone Justin Noble MD Primary Care Provider [phone] Reason for Visit * Reason Comments Med Refill Encounter Details Date Type Department Care Team ([facility] Contact Info) Description 09/27/2022 Refill [facility] Oncology and Hematology - Johnnie [address] [place] [address] James Thomas MD [address] [employer] [place] [address] Multiple myeloma not having achieved [...] Coronavirus/COVID-19? No / Unsure 08/31/2022 9:11 AM PRIMARY CARE SALES REPRESENTATIVE documented as of this encounter Plan of Treatment Upcoming Encounters Date Type Department Care Team ([facility] Contact Info) Description 04/07/2025 Orders Only [facility] Oncology and Hematology - Johnnie [address] [place] [address] James Thomas MD [address] [place] [address] Multiple myeloma not having achieved remission (CMS/HCC) 05/21/2025 8:30 AM PRIMARY CARE SALES REPRESENTATIVE Office Visit [facility] Oncology and Hematology [facility] [address] [place] [address] Diane Cantu MD [address] [place] [address] documented as of this encounter Visit Diagnoses Diagnosis Multiple myeloma not having achieved remission (CMS/HCC) Multiple myeloma, without mention of having achieved remission Multiple myeloma not having achieved remission (CMS/HCC) Multiple myeloma, without mention of having achieved remission documented in this encounter Care Teams Microsoft Dynamics Ax Developer Relationship Specialty Start Date End Date Justin Noble MD PCP - General Family Practice 03/09/22 documented as of this encounter
--- OUTSIDE RECORDS SUMMARY | 2025-04-05 11:47 | XMS_ITS | Encounter Summary ---
Author Organization [facility] Address [facility]3 [facility] [place] [address] Care Team Providers Care Professor Of Geology Name Role Phone Gisselle Hammer MD Unavailable Justin Noble MD Primary Care Provider [phone] Johnnie Buck OD Unavailable [phone] Riley Oliver MD Unavailable Carlos Sullivan MD Unavailable [phone] Justin Noble MD Unavailable [phone] Oneal Obando MD Unavailable Shasha Segovia MD Unavailable [phone] Lisbeth Butcher RN Unavailable [phone] Danitza Pruitt Unavailable Mckenzie Carcamo Unavailable Encounter Details Date Type Department Care Team (Late st Contact Info) Description 08/23/2022 Lab Requisition [facility] Care Pathology Lab [address] [place] [address] Criss Anderson MD [facility] [address] [address] Illness, unspecified Social History Tobacco [...] on file Legal Sex Male 6:30 AM OCCUPATIONAL THERAPY ASSISTANT Gender Identity Not on file Sexual Orientation Not on file 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 Not on file Not on file documented as of this encounter Plan of Treatment Upcoming Encounters Date Type Department Care Team (Late st Contact Info) Description 06/23/2025 11:00 AM OCCUPATIONAL THERAPY ASSISTANT Office Visit [facility] - Endocrinology [address] [facility], [address] [place] [address] Gavin Medellin, ROOF TECHNICIAN-SUPERINTENDENT TRANSMISSION [address], [address] [place] [address] 08/15/2025 10:40 AM OCCUPATIONAL THERAPY ASSISTANT Office Visit [facility] - Family Medicine [address] [place] [address] Justin Noble MD [address] [place] [address] documented as of this encounter [...] MARROW BIOPSY (STL) Routine 08/22/2022 8:00 AM OCCUPATIONAL THERAPY ASSISTANT Illness, unspecified documented in this encounter Results * BONE MARROW BIOPSY (STL) (08/22/2022 8:00 AM OCCUPATIONAL THERAPY ASSISTANT) Case Report Bone Marrow Patholog y Report Case: [id number] Authorizing Provider: Criss Anderson MD Collected: 08/22/2022 08:00 AM Ordering Location: [facility] Pathology Lab Received: 08/23/2022 01:16 PM Pathologist: Jerod Castro MD Specimen: Bone Marrow Clot 08/25/2022 9:[address] [facility] PATH[facility] Final Diagnosis Bone marrow, aspirate, clot section, and core biopsy: - Normocellular marrow with maturing trilineage hematopoiesis and persistent mild involvement by plasma cell neoplasm (~7-10% of marrow cellularity). - See description. Peripheral blood smear: - Microcytic anemia. - See description. 08/25/2022 9:[address] [facility] PATH[facility] at 0933 OCCUPATIONAL THERAPY ASSISTANT AP Comment Despite the negativi ty for a clonal plasma cell population by flow cytometry, the core does show increased plasma cells, consistent with persistent mild involvement by plasma cell neoplasm. The plasma cells are too many for a reactive plasmacytosis. 08/25/2022 9:[address] [facility] Peripheral Smear Description RBC: microcytic anemia. WBC: normal in number and morphology. Platelets: normal in number and morphology. 08/25/2022 9:[address] [facility] Bone Marrow Aspirate Differential count (200 cells): 0% blasts, 41% maturing myeloid precursors, 38% erythroid progenitors, 2% monocytes, 1% eosinophils, 16% lymphocytes, 0% plasma cells. Specimen quality: adequate. Spicules: numerous. Trilineage Hematopoiesis: present. Myeloid:Erythroid ratio: normal. Myeloid Maturation: normal. Erythroid Maturation: normal. Megakaryocyte morphology: normal size. 08/25/2022 9:[address] [facility] Bone Marrow Core Biopsy [...] stain): no ring sideroblasts. 08/25/2022 9:[address] [facility] Flow Cytometry Summary Bone marrow, flow cytometric immunophenotypic analysis ([id number]): - No clonal B cell, plasma cell, or increased blast population identified - See interpretation 08/25/2022 9:[address] [facility] Clinical History Multiple myeloma. 08/25/2022 9:[address] [facility] Materials Received Received are 14 slides and one block (A1) labeled [id number] along with a copy of the outside pathology report. [place] [address]. All original materials are returned to the referring institution, along with a copy of our final report. 08/25/2022 9:[address] [facility] Disclaimer The performance characteristics of all immunohistochemical and indirect immunofluorescence stains (if any) cited in this report were determined by the Histopathology Laboratory of [facility]. Some of these tests were [...] the attending (teaching) pathologist. 08/25/2022 9:[address] [facility] Embedded Images 08/25/2022 9:[address] [facility] Pathology/Cytolo gy BONE MARROW CLOT SPECIMEN / Unknown 08/22/2022 8:00 AM OCCUPATIONAL THERAPY ASSISTANT 08/23/2022 1:16 PM OCCUPATIONAL THERAPY ASSISTANT us Criss Anderson MD LAB - PATHOLOGY/CYTOLOGY ORDERAB LES Final Result [facility] PATHOLOGY LAB [address] [facility] [place] [address], [facility] [phone] documented in this encounter Visit Diagnoses Diagnosis Illness, unspecified documented in this encounter Care Teams Professor Of Geology Relationship Specialty Start Date End Date Justin Noble MD [address] [place] [address] PCP - General Family Medicine 11/14/13 Justin Noble MD [address] [place] [phone] PCP - Attributed-[facility] 12/13/16 Shasha Segovia MD [address] [place] [address] PCP - [facility] 08/16/22 10/24/22 Bautista-Gisselle Alcala MD [address] [place] [address] Endocrinology 01/03/13 Johnnie Buck OD [address] [place] [address] Accountant Cost 12/25/13 Riley Oliver MD [address] [place] [address] Nephrology 12/25/13 Carlos Sullivan MD [address] [facility] 1 [place] [phone] Pulmonary Disease 12/25/13 Oneal Obando MD [address] [place] [address] [address] [place] [address] Cardiology 10/27/21 Lisbeth Butcher, SRINIVAS Catering AssistantSourcing Associate 01/25/23 01/25/23 Danitza Pruitt Care Coordination Specialist Care Management 03/13/24 03/13/24 Mckenzie Carcamo Care Coordination Specialist Care Management 01/02/25 01/02/25 documented as of this encounter
--- OUTSIDE RECORDS SUMMARY | 2025-04-05 11:47 | XMS_ITS | Clinical Summary ---
Author Organization [facility] Address [address] [place] [phone] Care Team Providers Care Advanced Analytics Associate Name Role Phone James Thomas MD Unavailable [phone] Justin Noble MD Primary Care Provider [phone] Allergies No known active allergies Medications allopurinoL [...] Assistants Post-Discharge Follow-Up Living Situation/Distance from [facility] 30 min Caregiver Lab/Transfusion Frequency Venous [...] Description 02/25/2025 11:30 AM CDT Office Visit [facility] Medicine Bone Marrow Transplant [address] [facility] [address] [place] [phone] Kena Torres, TIM Multiple myeloma in remission (HCC) (Primary Dx) 02/25/2025 11:00 AM CDT Lab [facility] - Lab Collection [address] [facility] Floor 6 [place] [address] Multiple myeloma in remission (HCC) 02/25/2025 10:30 AM CDT Lab [facility] Medicine Oncology Lab [facility] [facility] [address] [place] [address] Multiple myeloma in remission (HCC) from Last [...] often do you attend chur ch or religion services? More than 4 times per year 02/08/2023 Do you belong to any clubs o r organizations such as adventism groups, unions, fraternal or athletic groups, or [...] place to sleep or slept in a senior care (including now)? No 02/08/2023 Personal Safety Answer Date Recorded Have you ever been in or are you currently in a harmful physical or emotional relationship or is someone making you feel afraid or unsafe? Denies 02/27/2023 Sex and Gender Information Value Date Recorded Sex Assigned at Not on file Legal Sex Male 5:33 PM OFFICE SUPPORT ASSOCIATE Gender Identity Not on file Sexual Orientation [...] MD LAB BLOOD ORDER VAUGHN Final Result [facility] [address] [facility] [place] [address] * Differential, auto (02/25/2025 11:39 AM CDT) Neutrophil abs 2.25 1.50 - 6.50 K/cumm Comment:Testing performed by : [facility], [address] [place], [place] [phone] Lymphocyte abs 2.29 0.80 - 3.30 K/cumm [facility] Comment:Testing performed by : [facility], [address] [place], [place] [phone] Monocyte abs 0.46 0.20 - 0.80 K/cumm [facility] Comment:Testing performed by : [facility], [address] [place], [place] [phone] Eosinophil abs 0.15 0.00 - 0.50 K/cumm [facility] Comment:Testing performed by : [facility], [address] [place] [phone] Basophil abs 0.04 0.00 - 0.10 K/cumm [facility] Comment:Testing performed by : [facility], [address] [place] [phone] Neutrophil pct 43.3 % [facility] Comment: Interpretive Data Percent cell count reference ranges are not reported, since discordance with absolute values may lead to misinterpretation of CBC data. Current Interpretive Data was last revised on 2017. Testing performed by: [facility], [address] [place] [phone] Lymphocyte pct 44.2 % [facility] Comment: Interpretive Data Percent cell count reference ranges are not reported, since discordance with absolute values may lead to misinterpretation of CBC data. Current Interpretive Data was last revised on 2017. Testing performed by: [facility], [address] [place] [phone] Monocyte pct 8.9 % [facility] Comment: Interpretive Data Percent cell count reference ranges are not reported, since discordance with absolute values may lead to misinterpretation of CBC data. Current Interpretive Data was last revised on 2017. Testing performed by: [facility], [address] [place] [phone] Eosinophil pct 2.8 % [facility] Comment: Interpretive Data Percent cell count reference ranges are not reported, since discordance with absolute values may lead to misinterpretation of CBC data. Current Interpretive Data was last revised on 2017. Testing performed by: [facility], [address] [place] [phone] Basophil pct 0.7 % [facility] Comment: Interpretive Data Percent cell count reference ranges are not reported, since discordance with absolute values may lead to misinterpretation of CBC data. Current Interpretive Data was last revised on 2017. Testing performed by: [facility], [address] [place] [phone] Blood 02/25/2025 11:3 9 AM CDT 02/25/2025 11:50 AM CDT Juan José Garcia MD LAB BLOOD ORDER VAUGHN Final Result [facility] One [facility] [place] [address] * (ABNORMAL) Immunoglobulin free light chains (02/25/2025 11:39 AM CDT) Jesup/Lambda ratio [facility] 1.41 0.26 - 1.65 Comment: Interpretive Data The Binding Site FreeLite assay procedure was used. Results from different manufacturers or methods may not be comparable. Serial testing should be performed using the same methods and instrumentation. Current Interpretive Data was last revised on 2023. Jesup free light chain [facility] 4.48(H) 0.33 - [...] ORDER VAUGHN Final Result [facility] [address] [facility] [place] [address] * (ABNORMAL) CBC with auto differential (02/25/2025 11:39 AM CDT) WBC 5.18 3.80 - 9.90 K/cumm Comment:Testing performed by : [facility], [address] [place] [address] Hgb 10.4(L) 13.0 - 17.5 g/dL [facility] Comment:Testing performed by : [facility], [address] [place] [address] Hct 32.1(L) 38.9 - 50.3 % [facility] Comment:Testing performed by : [facility], [address] [place] [address] Plt 221 150 - 400 K/cumm [facility] Comment:Testing performed by : [facility], [address] [place] [address] MPV 6.7(L) 6.8 - 10.4 fL [facility] Comment:Testing performed by : [facility], [address] [place], [place] [phone] RBC 4.48 4.30 - 5.80 M/cumm [facility] Comment:Testing performed by : [facility], [address] [place], [place] [phone] MCV 71.5(L) 81.3 - 96.4 fL [facility] Comment:Testing performed by : [facility], [address] [place], [place] [phone] MCH 23.1(L) 27.1 - 33.3 pg [facility] Comment:Testing performed by : [facility], [address] [place], [place] [phone] MCHC 32.3 32.3 - 35.7 g/dL [facility] Comment:Testing performed by : [facility], [address] [place], [place] [phone] RDW CV 22.5(H) 11.1 - 14.9 % [facility] Comment:Testing performed by : [facility], [address] [place], [place] [phone] NRBC abs 0.00 0.00 - 0.01 K/cumm [facility] Comment:Testing performed by : [facility], [address] [place], [place] [phone] Blood 02/25/2025 11:3 9 AM CDT 02/25/2025 11:50 AM CDT Juan José Garcia MD LAB BLOOD ORDER VAUGHN Final Result [facility] One [facility] Department [place] [address] * (ABNORMAL) Protein electrophoresis with reflex, serum with interpretation (02/25/2025 11:39 AM CDT) Protein, sr 8.0 6.2 - 8.2 g/dL Albumin 4.1 3.2 - 5.0 g/dL [facility] Alpha-1 globulin 0.3 0.2 - 0.4 g/dL [facility] Alpha-2 globulin 0.9 0.5 - 1.0 g/dL [facility] Beta-1 globulin 0.3 0.3 - 0.6 g/dL [facility] Beta-2 globulin 0.5 0.2 - 0.6 g/dL [facility] Gamma globulin 1.8(H) 0.5 - 1.7 g/dL [facility] SPEP interp Please see comment [facility] Comment: No apparent monoclonal peak Polyclonal increase in gamma globulins Electrophoretic pattern appears similar to previous sample 03/06/2024 Reviewed and signed by Oneal Boateng MD, PhD 02/26/2025 Blood 02/25/2025 11:3 9 AM CDT 02/25/2025 12:29 PM CDT Juan José Garcia MD LAB BLOOD ORDER VAUGHN Final Result Performing Organization Address City/[facility]/ZIP Co de Phone Number [facility] Department [place] [address] * Lactate dehydrogenase (LD) (02/25/2025 11:39 AM CDT) Pathologist [facility] Lactate dehydrogenase (LDH) 159 100 - 250 Units/L Blood 02/25/2025 11:3 9 AM CDT 02/25/2025 11:52 AM CDT Juan José Garcia MD LAB BLOOD ORDER VAUGHN Final Result [facility] [place] [employer] [place] [address] * IgA (02/25/2025 11:39 AM CDT) Pathologist [facility] Immunoglobulin A 299 70 - 400 mg/dL Blood 02/25/2025 11:3 9 AM CDT 02/25/2025 12:12 PM CDT Juan José Garcia MD LAB BLOOD ORDER VAUGHN Final Result Performing Organization Address City/[facility] Co de Phone Number [facility] [place] [address] * (ABNORMAL) IgM (02/25/2025 11:39 AM CDT) [facility] Immunoglobulin M 25(L) 40 - 230 mg/dL Blood 02/25/2025 11:3 9 AM CDT 02/25/2025 12:12 PM CDT Juan José Garcia MD LAB BLOOD ORDER VAUGHN Final Result Performing Organization Address [facility] de Phone Number [facility] [place] [address] * (ABNORMAL) IgG (02/25/2025 11:39 AM CDT) [facility] Immunoglobulin G 2,074(H) 700 - 1,600 mg/dL Blood 02/25/2025 11:3 9 AM CDT 02/25/2025 12:12 PM CDT Juan José Garcia MD LAB BLOOD ORDER VAUGHN Final Result Performing Organization Address [facility] [place] [address] * (ABNORMAL) Comprehensive metabolic panel (02/25/2025 11:39 AM CDT) [facility] Sodium 139 135 - 145 mmol/L Potassium, pl 4.2 3.3 - 4.9 mmol/L [facility] Chloride 102 97 - 110 mmol/L [facility] CO2 28 22 - 32 mmol/L [facility] Anion gap 9 2 - 15 mmol/L [facility] BUN 23 6 - 25 mg/dL [facility] Creatinine 2.07(H) 0.80 - 1.30 mg/dL [facility] Glucose 130 70 - 199 mg/dL [facility] Comment: Interpretive Data Fasting glucose >/= 126 [...] 2022. Calcium 9.4 8.5 - 10.3 mg/dL [facility] Bilirubin, total 0.8 0.1 - 1.2 mg/dL [facility] Protein, pl 8.1 6.5 - 8.5 g/dL [facility] Albumin 4.2 3.5 - 5.0 g/dL [facility] Alk phos 70 40 - 130 Units/L [facility] ALT 23 7 - 55 Units/L [facility] AST 20 10 - 50 Units/L [facility] Blood 02/25/2025 11:3 9 AM CDT 02/25/2025 11:52 AM CDT Juan José Garcia MD LAB BLOOD ORDER VAUGHN Final Result [facility] [address] [facility] [place] [address] * (ABNORMAL) Hemoglobin A1c (01/09/2023 11:08 AM CDT) Hgb A1C 6.8(H) 4.0 - 5.6 % [facility] Estimated Average Glucose 148 mg/dL [facility] Comment: The ADA recommends reporting an estimated [...] MD LAB BLOOD ORDER VAUGHN Final Result [facility] [address] [facility] [place] [address] * (ABNORMAL) Lipid panel (01/09/2023 11:08 AM [...] on 2018. Triglycerides 152(H) <=149 mg/dL [facility] Comment: Interpretive Data Ages < or = [...] 2018. LDL, calculated 51 <=129 mg/dL [facility] Comment: Interpretive Data Ages < or = [...] on 2018. Non-HDL Cholesterol 81 mg/dL [facility] Comment: Interpretive Data Ages < or = [...] last revised on 2018. Chol/HDL ratio 2 [facility] Blood 01/09/2023 11:0 8 AM CDT 01/09/2023 12:18 PM CDT us Juan José Garcia MD LAB BLOOD ORDER VAUGHN Final Result [facility] [place] [address] from Last 3 Months or Most Recently Relevant to Health Maintenance Insurance [facility] Address: [place] [id number] [facility] Address: [place] [address] [facility] Address: [address] [address] [place] [address] [facility] ADVANTAGE [facility] Address: [address] [address] [place] [address] [employer] MEDICARE RISK Advance Directives For more information, please contact: [phone] Documents on File Type Date Recorded Patient Broadcaster Expl anation ADVANCE DIRECTIVE 06/02/2023 3:46 PM Rose r of [employer] * Full Code (Latest Code Status on File) Date Activated Date Inactivated Comments 02/27/2023 9:07 AM 02/28/2023 5:22 AM * Full Code Date Activated Date Inactivated Comments 02/06/2023 3:05 PM 02/22/2023 5:33 PM * Full Code Date Activated Date Inactivated Comments 01/30/2023 9:52 AM 01/31/2023 5:30 AM Care Teams Advanced Analytics Associate Relationship Specialty Start Date End Date Justin Noble MD [address] [place] [address] PCP - General Family Medicine 09/07/22 James Thomas MD [address] [facility] [address] [place] [address] Referring Physician Hematology 09/02/22
--- OUTSIDE RECORDS SUMMARY | 2025-04-05 11:47 | XMS_ITS ---
Author Organization [facility] Address [address] [place] [phone] Care Team Providers Care Core Shaper Sides Name Role Phone James Thomas MD Unavailable [phone] Justin Noble MD Primary Care Provider Active Problems Patient Care Coordination No te [...] Medical Assistants Post-Discharge Follow-Up Living Situation/Distance from [facility] 30 min Caregiver Lab/Transfusion Frequency Venous Access & Care tunneled central venous catheter Local Oncologist Contact Phone: Fax: Post-Discharge Office Visit (H30) [facility] 02/27 Miscellaneous Notes: Problem [...]
--- OUTSIDE RECORDS SUMMARY | 2025-04-05 11:47 | XMS_ITS | Encounter Summary ---
Author Organization [facility] Address [facility] [facility] [place] [address] Care Team Providers Care Laborer Egg Producing Farm Name Role Phone Gisselle Hammer MD Unavailable [phone] Justin Noble MD Primary Care Provider Johnnie Buck OD Unavailable [phone] Riley Oliver MD Unavailable Carlos Sullivan MD Unavailable Justin Noble MD Unavailable [phone] Oneal Obando MD Unavailable Shasha Segovia MD Unavailable [phone] Lisbeth Butcher RN Unavailable [phone] Danitza Pruitt Unavailable Mckenzie Carcamo Unavailable Encounter Details Date Type Department Care Team (Late st Contact Info) Description 08/22/2022 Lab Requisition 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 Not on file Not on file documented as of this encounter Plan of Treatment Upcoming Encounters Date Type Department Care Team (Late st Contact Info) Description 06/23/2025 11:00 AM DOUGHNUT DOUGH MIXER Office Visit [facility] - Endocrinology [address] [facility], [address] [place] [address] Gavin Medellin CELLO TEACHER-ELECTRIC METER TESTER [address], [address] [place] [address] 08/15/2025 10:40 AM DOUGHNUT DOUGH MIXER Office Visit [facility] - Family Medicine [address] [place] [address] Justin Noble MD [address] [place] [address] documented as of this encounter [...] CYTOMETRY BONE MARROW Routine 08/22/2022 9:48 AM DOUGHNUT DOUGH MIXER Multiple myeloma not having achieved remission (CMS/HCC) documented in this encounter Results * FLOW CYTOMETRY BONE MARROW (08/22/2022 9:48 AM DOUGHNUT DOUGH MIXER) Case Report Flow Cytometry Case: [id number] Authorizing Provider: Criss Anderson MD Collected: 08/22/2022 09:48 AM Ordering Location: [facility] Pathology Lab Received: 08/22/2022 01:48 PM Pathologist: Jerod Castro MD Specimen: Bone Marrow 08/22/2022 4:55 PM [facility] PATHOLOGY LAB Final Diagnosis Bone marrow, flow cytometric immunophenotypic analysis: - No clonal B cell, plasma cell, or increased blast population identified - See interpretation 08/22/2022 4:55 PM [facility] PATHOLOGY LAB at [address] DOUGHNUT DOUGH MIXER Flow Cytometry Interpretation The bone marrow specimen [...] the flow cytometry specimen is reviewed for quality eng purposes. The bone marrow aspirate specimen shows no evidence of involvement by residual/recurrent plasma cell myeloma, non-Hodgkin lymphoma, or a high-grade myeloid neoplasm. Correlation with clinical findings, the concurrent bone marrow core biopsy if any, and relevant cytogenetic/molecu lar studies is required. 08/22/2022 4:55 PM [facility] PATHOLOGY LAB Flow Cytometry Results Differential Result Comment Flow Cell Count /uL 54,000 Total Viability % 92.0 Lymphocytes % 34 Dim CD45 Region % 8 Monocytes % 22 Granulocytes % 34 08/22/2022 4:55 PM [facility] Reason for test Multiple myeloma not having achieved remission (CMS/HCC) 203.00 08/22/2022 4:55 PM [facility] PATHOLOGY LAB Client Specimen ID # [id number] 08/22/2022 4:55 PM [facility] PATHOLOGY LAB Number of markers 14 were performed. A-2 Flow CD10 A-3 Flow CD13 A-5 Flow CD20 A-13 Flow CD117 A-14 FLOW CD138 A-1 Flow CD5 A-4 Flow CD19 A-6 Flow CD33 A-7 Flow CD34 A-8 Flow CD45 A-11 Flow CD38 A-12 Flow CD56 A-9 [place]+CD19+ A-10 Lambda+CD19+ 08/22/2022 4:55 PM DOUGHNUT DOUGH MIXER [facility] PATHOLOGY LAB Disclaimer Test performed at [facility], [address] [place], [place], [address]. *The established laboratory minimum viability is 70%. [...] high complexity clinical testing. 08/22/2022 4:55 PM DOUGHNUT DOUGH MIXER [facility] PATHOLOGY LAB Embedded Images 4:55 PM DOUGHNUT DOUGH MIXER [facility] PATHOLOGY LAB Pathology/Cytolo gy BONE MARROW SPECIMEN / Unknown 08/22/2022 9:48 AM DOUGHNUT DOUGH MIXER 08/22/2022 1:48 PM DOUGHNUT DOUGH MIXER Criss Anderson MD LAB - PATHOLOGY/CYTOLOGY ORDERAB LES Final Result [facility] PATHOLOGY LAB [facility]. [address] [phone] documented in this encounter Visit Diagnoses Diagnosis Multiple myeloma not having achieved remission (HCC) Multiple myeloma, without mention of having achieved remission documented in this encounter Care Teams Laborer Egg Producing Farm Relationship Specialty Start Date End Date Justin Noble MD [address] [place] [address] PCP - General Family Medicine 11/14/13 Justin Noble MD [place] [address] PCP - Attributed-[facility] [place] 12/13/16 Shasha Segovia MD [address] [place] [address] [place] [phone] PCP - Strive MCO 08/16/22 10/24/22 Gisselle Hammer MD [address] [place] [address] [address] [place] [phone] Endocrinology 01/03/13 Johnnie Buck OD [address] [place] [address] [address] [place] [address] Licensed Nurse Practitioner 12/25/13 Riley Oliver MD [address] [place] [address] [address] [place], [place] [phone] Nephrology 12/25/13 Carlos Sullivan MD [address] [facility] 1 [place] [phone] Pulmonary Disease 12/25/13 Oneal Obando MD [address] [place] [address] [address] [place] [address] Cardiology 10/27/21 Lisbeth Butcher, RN Fountain Waitress/WaiterInspector Semiconductor Wafer 01/25/23 01/25/23 Danitza Pruitt Care Coordination Specialist Care Management 03/13/24 03/13/24 Mckenzie Carcamo Care Coordination Specialist Care Management 01/02/25 01/02/25 documented as of this encounter
--- OUTSIDE RECORDS SUMMARY | 2025-04-05 11:47 | XMS_ITS | Encounter Summary ---
Author Organization [facility] Address [facility]3 [place] [address] Care Team Providers Care Hearing Therapy Director Name Role Phone Gisselle Hammer MD Unavailable [phone] Justin Noble MD Primary Care Provider Johnnie Buck OD Unavailable [phone] Riley Oliver MD Unavailable Carlos Sullivan MD Unavailable [phone] Justin Noble MD Unavailable [phone] Oneal Obando MD Unavailable Shasha Segovia MD Unavailable Lisbeth Butcher RN Unavailable [phone] Danitza Pruitt Unavailable Mckenzie Carcamo Unavailable Encounter Details Date Type Department Care Team (Late st Contact Info) Description 03/01/2022 Lab Requisition [facility] Care Pathology Lab [address] [place] [address] Criss Anderson MD [facility] [address] [address] Illness, unspecified Social History Tobacco [...] on file Legal Sex Male 6:30 AM JUDO TEACHER Gender Identity Not on file Sexual Orientation Not on file 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 Not on file Not on file Not [...] st Contact Info) Description 06/23/2025 11:00 AM JUDO TEACHER Office Visit [facility] - Endocrinology [address] [facility], [address] [place] [address] Gavin Medellin, SCENERY BUILDER-TITLE COORDINATOR [address] [facility], [address] [place] [address] 08/15/2025 10:40 AM JUDO TEACHER Office Visit [facility] - Family Medicine [address] [place] [address] Justin Noble MD [address] [place] [address] documented as of this encounter [...] Report Bone Marrow Patholog y Report Case: [id number] Authorizing Provider: Criss Anderson MD Collected: 02/25/2022 10:47 AM Ordering Location: [facility] Pathology Lab Received: 03/01/2022 11:47 AM Pathologist: Rachelle Garcia Mai, DO Specimen: Bone Marrow Core 03/02/2022 2:56 PM CDT [facility] PATHOLOGY LAB Final Diagnosis Bone marrow, aspirate, [...] for final prognostication. 03/02/2022 2:56 PM CDT [facility] PATHOLOGY LAB Bone Marrow Aspirate Differential count [...] forms. Properly controlled immunohistochemical stains performed at [facility] Department of Pathology show the following: CD138: Stains sheets of plasma cells which comprise greater than 90% of marrow cellularity [place]/lambda in situ hybridization: Shows both kappa and lambda positive cells without obvious light chain restriction; the majority of plasma cells do not secrete either light chain CD56: Negative CD20: Positive in scattered B cells, negative in plasma cells 03/02/2022 2:56 PM [facility] PATHOLOGY LAB Flow Cytometry Summary N/A 03/02/2022 2:56 PM [facility] PATHOLOGY LAB Clinical History The patient is a 71-year-old man presented with hyperkalemia, and acute on chronic kidney dysfunction. 03/02/2022 2:56 PM [facility] PATHOLOGY LAB Materials Received Received are 15 slides and two blocks (A1, A2) labeled [id number] along with a copy of the outside pathology report. [place] [address]. All original materials are returned to the referring institution, along with a copy of our final report. 03/02/2022 2:56 PM [facility] PATHOLOGY LAB Disclaimer The performance characteristics of all immunohistochemical and indirect immunofluorescence stains (if any) cited in this report were determined by the Histopathology Laboratory of [facility]. Some of these tests were developed [...] attending (teaching) pathologist. 03/02/2022 2:56 PM CDT [facility] PATHOLOGY LAB Embedded Images 03/02/2022 2:56 PM CDT [facility] PATHOLOGY LAB Pathology/Cytolo gy BONE MARROW SPECIMEN / Unknown 02/25/2022 10:47 AM CDT 03/01/2022 11:47 AM CDT Criss Anderson MD LAB - PATHOLOGY/CYTOLOGY ORDERAB LES Final Result Performing Organization Address City/State/[facility] Co de Phone Number [facility] PATHOLOGY LAB [address] [place], [place] [address] [phone] documented in this encounter Visit Diagnoses Diagnosis Illness, unspecified documented in this encounter Care Teams Hearing Therapy Director Relationship Specialty Start Date End Date Justin Noble MD [address] [place] [phone] PCP - General Family Medicine 11/14/13 Justin Noble MD [facility] [place] [address] PCP - Attributed-[facility] MA 12/13/16 Shasha Segovia MD [address] [place] [address] PCP - Strive MCO 08/16/22 10/24/22 Gisselle Hammer MD [address] [place] [address] [address] [place] [address] Endocrinology 01/03/13 Johnnie Buck OD [address] [place] [phone] Housekeeping/Laundry 12/25/13 Riley Oliver MD [address] [place] [address] Nephrology 12/25/13 Carlos Sullivan MD [address] [facility] 1 [place] [address] Pulmonary Disease 12/25/13 Oneal Obando MD [address] [facility] 200 [place], [place] [phone] Cardiology 10/27/21 Lisbeth Butcher, RN Maturity CheckerWashcoat Wiper 01/25/23 01/25/23 Danitza Pruitt Care Coordination Specialist Care Management 03/13/24 03/13/24 Mckenzie Carcamo Care Coordination Specialist Care Management 01/02/25 01/02/25 documented as of this encounter
--- OUTSIDE RECORDS SUMMARY | 2025-04-05 11:47 | XMS_ITS | Clinical Summary ---
Author Organization [facility] Matthieu Vazquez Address [address] [place] [address] Care Team Providers Care Ruby On Rails Software Developer Name Role Phone Justin Noble MD Primary Care Provider [phone] Allergies No known active allergies Medications amLODIPine [...] TIMES DAILY WITH MEALS 01/24/20 22 [employer] GroupTouch Delica Plus Lancet 33 gauge USE TO [...] Type Department Care Team Description 04/01/2025 Refill [facility] Oncology and Hematology - Johnnie [address] [place] [address] James Thomas MD Multiple myeloma not having achieved remission (CMS/HCC) 03/31/2025 Orders Only [facility] Oncology and Hematology - Johnnie [address] [facility] [place] [address] James Thomas MD Benign hypertension 03/27/2025 Orders Only [facility] Oncology and Hematology - Johnnie [address] [facility] [place] [address] James Thomas MD 03/25/2025 External Device Data STL ABSTRACTION Provider, Abstract 03/24/2025 Orders Only [facility] Oncology and Hematology - Johnnie [address] [place] [address] James Thomas MD Multiple myeloma not having achieved remission (CMS/HCC) 03/17/2025 Orders Only [facility] Oncology and Hematology - Johnnie [address] [place] [address] James Thomas MD Benign hypertension 03/12/2025 8:30 AM CDT Office Visit [facility] Oncology [facility] Hematology [facility] [address] [place] [phone] Diane Cantu MD Multiple myeloma not having achieved remission (CMS/HCC) (Primary Dx); Chronic anemia; Benign hypertension; Lymphocytosis 03/12/2025 Orders Only [facility] Oncology and Hematology [facility] [address] James Thomas MD 03/11/2025 External Device Data STL ABSTRACTION Provider, Abstract 03/11/2025 External Device Data STL ABSTRACTION Provider, Abstract 03/10/2025 Orders Only [facility] Oncology and Hematology [facility] [address] [place] [phone] James Thomas MD Multiple myeloma not having achieved remission (CMS/HCC) 03/03/2025 Orders Only [facility] Oncology [facility] Hematology [facility] [address] [place] [phone] James Thomas MD Benign hypertension 02/27/2025 Orders Only [facility] Oncology and Hematology [facility] [address] [place] [phone] James Thomas MD 02/25/2025 External Device Data STL ABSTRACTION Provider, Abstract 02/24/2025 Orders Only [facility] Oncology and Hematology [facility] [address] [place] [phone] James Thomas MD Multiple myeloma not having achieved remission (CMS/HCC) 02/17/2025 Orders Only [facility] Oncology and Hematology [facility] [address] [place] [phone] James Thomas MD Benign hypertension 02/12/2025 External Device Data STL ABSTRACTION Provider, Abstract 02/12/2025 Orders Only [facility] Oncology and Hematology Johnnie [address] [place] [phone] James Thomas MD 02/11/2025 External Device Data STL ABSTRACTION Provider, Abstract 02/10/2025 Orders Only [facility] Oncology and Hematology Johnnie [address] [place] [phone] James Thomas MD Multiple myeloma not having achieved remission (CMS/HCC) 02/03/2025 Orders Only [facility] Oncology and Hematology [facility] [address] [place] [phone] James Thomas MD Benign hypertension 01/29/2025 Orders Only [facility] Oncology and Hematology - Johnnie [address] [place] [phone] James Thomas MD 01/27/2025 Orders Only [facility] Oncology and Hematology Johnnie [address] [place] [phone] James Thomas MD Multiple myeloma not having achieved remission (CMS/HCC) 01/22/2025 External Device Data STL ABSTRACTION Provider, Abstract 01/22/2025 External Device Data STL ABSTRACTION Provider, Abstract 01/22/2025 External Device Data STL ABSTRACTION Provider, Abstract 01/21/2025 External Device Data STL ABSTRACTION Provider, Abstract 01/20/2025 Orders Only [facility] Oncology and Hematology - Johnnie [address] [place] [address] James Thomas MD Benign hypertension 01/15/2025 8:30 AM CDT Office Visit [facility] Oncology and Hematology [facility] [address] [place] [address] James Thomas MD Multiple myeloma not having achieved remission (CMS/HCC) (Primary Dx) 01/13/2025 Orders Only [facility] Oncology and Hematology - Johnnie [address] [place] [address] James Thomas MD Multiple myeloma not having achieved remission (CMS/HCC) 01/06/2025 Orders Only [facility] Oncology and Hematology - Johnnie [address] [place] [address] James Thomas MD Benign hypertension from Last 3 [...] st Contact Info) Description 04/07/2025 Orders Only [facility] Oncology and Hematology - Johnnie [address] [place] [address] James Thomas MD [address] [facility] [address] [place] [address] Multiple myeloma not having achieved remission (CMS/HCC) 05/21/2025 8:30 AM FIRE SAFETY DIRECTOR Office Visit [facility] Oncology and Hematology - Johnnie [address] [place] [address] Diane Cantu MD [address] [place] [address] Health Maintenance Due Date Last [...] Res ult from Last 3 Months Insurance [facility] [id number] RX [employer] RX Member Subscriber Plan / Payer (Ef fective 2016-Present) Name:Reji, Willam M Relation to Subscriber:Self Name:Reji, Willam M Payer ID:Not on file Group ID:[id number] Type:RX Medicare Part D Address: [address] [facility] [address] Care Teams Ruby On Rails Software Developer Relationship Specialty Start Date End Date Justin Noble MD PCP - General Family Practice 03/09/22
--- OUTSIDE RECORDS SUMMARY | 2025-04-05 11:47 | XMS_ITS | Clinical Summary ---
Author Organization [facility] Address [address] [place] [address] Phone Care Team Providers Care Roofing Technician Name Role Phone Justin Noble MD Primary Care Provider [phone] Allergies No known active allergies Medications acyclovir [...] DAILY 2 Active Lancets (OneTouch Delica Plus [id number]) misc USE TO CHECK BLOOD SUGAR FOUR [...] diabetes mellitus 020 Overview (04/07/2022): Gavin Medellin, CORK GRINDER-BROACHING MACHINE SET UP OPERATOR 02/12/2020 Essential hypertension 04/04/2019 Obstructive sleep apnea [...] Advance Directives For more information, please contact: [phone] (7AM - 4PM [facility], 7 days a week) Documents on File Type Date Recorded Patient Shake Cutter Expl anation Advance Directives and Living Will 04/07/2022 11:33 AM Robel 1.jpg Advance Directives and Living Will 04/07/2022 11:33 AM Robel 2.jpg Care Teams Roofing Technician Relationship Specialty Start Date End Date Justin Noble MD [address] [place] [address] PCP - General Internal Medicine 03/15/22
--- OUTSIDE RECORDS SUMMARY | 2025-04-05 11:47 | XMS_ITS | Encounter Summary ---
Author Organization [facility] Address [address] [place] [address] Phone Care Team Providers Care Ecommerce Marketing Specialist Name Role Phone James Thomas MD Unavailable [phone] Justin Noble MD Primary Care Provider [phone] Encounter Details Date Type Department Care Team (Late st Contact Info) Description 04/09/2024 Telephone [facility] Medicine Scheduling [address] [place] [address] Celina Cuello Social History Tobacco Use Types [...] often do you attend chur ch or anabaptist services? More than 4 times per year 02/08/2023 Do you belong to any clubs o r organizations such as christianity groups, unions, fraternal or athletic groups, or [...] place to sleep or slept in a group home (including now)? No 02/08/2023 Personal Safety Answer Date Recorded Have you ever been in or are you currently in a harmful physical or emotional relationship or is someone making you feel afraid or unsafe? 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 Gender Identity Not on file Sexual Orientation Not on file documented as of this encounter Plan of Treatment Not on file documented as of this encounter Visit Diagnoses Not on filedocumented in this encounter Care Teams Ecommerce Marketing Specialist Relationship Specialty Start Date End Date Justin Noble MD [facility] [address] [place] [address] PCP - General Family Medicine 09/07/22 James Thomas MD [address] [facility] [address] [place] [address] Referring Physician Hematology 09/02/22 documented as of this encounter
--- OUTSIDE RECORDS SUMMARY | 2025-04-05 11:48 | XMS_ITS | Encounter Summary ---
Author Organization [facility] Address [facility] [facility] [place] [address] Care Team Providers Care Store Person Name Role Phone Gisselle Hammer MD Unavailable Justin Noble MD Primary Care Provider Johnnie Buck OD Unavailable [phone] Riley Oliver MD Unavailable Carlos Sullivan MD Unavailable [phone] Justin Noble MD Unavailable [phone] Oneal Obando MD Unavailable Danitza Pruitt Unavailable Mckenzie Carcamo Unavailable Encounter Details Date Type Department Care Team (Late st Contact Info) Description 02/21/2024 Lab Requisition [facility] - Pathology Lab [address] [place] [address] Rafa Waller MD [address] [place] [id number] Lymphocytosis (symptomatic) Social History Tobacco Use [...] on file Legal Sex Male 6:30 AM INSTALLER APPRENTICE Gender Identity Not on file Sexual Orientation Not on file 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 Not on file Not on file documented as of this encounter Plan of Treatment Upcoming Encounters Date Type Department Care Team (Late st Contact Info) Description 06/23/2025 11:00 AM INSTALLER APPRENTICE Office Visit [facility] - Endocrinology [address], [address] [place] [address] Gavin Medellin, BUILDING INSULATION SUPERVISOR-CLINICAL STAFF ANESTHESIOLOGIST [address], [address] [place] [address] 08/15/2025 10:40 AM INSTALLER APPRENTICE Office Visit [facility] - Family Medicine [address] [place] [address] Justin Noble MD [address] [place] [address] documented as of this encounter [...] AM CDT) Case Report Flow Cytometry Case: [id number] Authorizing Provider: Rafa Waller Collected: 02/21/2024 09:20 AM MD Esdras Ordering Location: [facility] - Received: 02/21/2024 01:31 PM Pathology Lab Pathologist: Sachin Glaser MD Specimen: Blood 02/21/2024 5:37 PM CDT [facility] Final Diagnosis Peripheral blood, flow cytometric immunophenotypic analysis: - No diagnostic evidence of expanded T-cells, clonal B-cells or acute leukemia. - See interpretation. 02/21/2024 5:37 PM CDT [facility] PATH[facility] at 1736 CDT Flow Cytometry Results Differential Result Comment Flow Cell Count /uL Total Viability % 100.0 Lymphocytes % 60 Dim CD45 Region % 2 Monocytes % 12 Granulocytes % 25 02/21/2024 5:37 PM CDT [facility] Flow Cytometry Interpretation Viability: 100% B-cells: polytypic, kappa:lambda ratio 1.2:1 T-cells: no immunophenotypic aberrancy detected CD4:CD8 ratio 0.5:1 Blasts: not detected A peripheral blood smear prepared from the flow cytometry specimen has been reviewed for it quality analyst purposes. 02/21/2024 5:37 PM CDT [facility] Reason for test Lymphocytosis (symptomatic) 288.61 02/21/2024 5:37 PM [facility] Client Specimen ID # [id number] 02/21/2024 5:37 PM CDT [facility] Pathologist Location at [facility] [address] 02/21/2024 5:37 PM CDT [facility] Disclaimer Test performed at [facility], [address] [place] [address], [id number]. *The established laboratory minimum viability is 70%. [...] complexity clinical testing. 02/21/2024 5:37 PM CDT [facility] Embedded Images 5:37 PM CDT [facility] Number of markers 17 were performed. A-1 Flow CD10 A-2 Flow CD13 A-4 Flow CD20 A-10 Flow CD2 A-11 Flow CD3 A-12 Flow CD4 A-16 Flow CD1a A-3 Flow CD19 A-5 Flow CD33 A-6 Flow CD34 A-7 Flow CD45 A-13 Flow CD5 A-14 Flow CD7 A-15 Flow CD8 A-17 Flow CD30 A-8 [place]+CD19+ A-9 Lambda+CD19+ 02/21/2024 5:37 PM CDT [facility] Blood BLOOD SPECIMEN / Unknown 02/21/2024 9:20 AM CDT 02/21/2024 1:31 PM CDT Rafa Waller MD LAB - PATHOLOGY/CYT OLOGY ORDERABLES Final Result Performing Organization Address City/State/[facility] Phone Number [facility] [address] [phone] documented in this encounter Visit Diagnoses Diagnosis Lymphocytosis (symptomatic) documented in this encounter Care Teams Store Person Relationship Specialty Start Date End Date Justin Noble MD [address] [place] [id number] PCP - General Family Medicine 11/14/13 Justin Noble MD [address] [place] [address] PCP - Attributed-[facility] 12/13/16 Gisselle Hammer MD [address] [place] [phone] Endocrinology 01/03/13 Johnnie Buck OD [address] [place] [phone] Dramatic Teacher 12/25/13 Riley Oliver MD [address] [facility] [address] [facility] [address] [place] [address] Nephrology 12/25/13 Carlos Sullivan MD [address] [facility] [address] [place] [address] Pulmonary Disease 12/25/13 Oneal Obando MD [address] [facility] [address] [place], [place] [id number] Cardiology 10/27/21 Danitza Pruitt Care Coordination Specialist Care Management 03/13/24 03/13/24 Mceknzie Carcamo Care Coordination Specialist Care Management 01/02/25 01/02/25 documented as of this encounter
--- NOTE | 2025-04-05 12:22 | ED.DENTAL ---
HPI - Dental/Oral General Chief complaint: Dental/Oral Stated complaint: jaw is swollen Time Seen by Provider: 04/05/25 11:41 Source: patient, RN notes reviewed and old records reviewed Mode of arrival: ambulatory Limitations: no limitations History of Present Illness HPI Narrative: THis is a 74 year old male with history of dental and gum disease who presents for evaluation left jaw swelling. He states this morning he woke up with left jaw swelling. He reports history of gum infections and he was on antibiotics 1 month ago. He states that his dentist has referred him to a specialist but he is unable to see for a couple of months. HE denies fever, chills, nausea or vomiting. Onset (ago): hour(s) (4) Related Data Home Medications ?Medication ?Instructions ?Recorded ?Confirmed ?Last Taken ?Type amlodipine 10 mg tablet 10 mg PO DAILY 02/24/22 02/17/25 08/22/22 07:00 History atorvastatin 80 mg tablet 80 mg PO HS 02/24/22 02/17/25 08/21/22 History insulin lispro 200 unit/mL (3 mL) 18 unit subcut TID 02/24/22 02/17/25 08/21/22 History subcutaneous pen (Humalog KwikPen U-200 Insulin) latanoprost 0.005 % eye drops 1 drp EACH EYE 02/24/22 02/17/25 08/19/22 History metoprolol tartrate 50 mg tablet 50 mg PO BID 02/24/22 02/17/25 07/06/23 07:00 History triamterene 75 75 tablet PO DAILY 02/24/22 02/17/25 08/22/22 07:00 History mg-hydrochlorothiazide 50 mg tablet cholecalciferol (vitamin D3) 25 25 mcg PO DAILY 06/30/22 02/17/25 08/21/22 History mcg (1,000 unit) capsule (Vitamin D3) ferrous sulfate 325 mg (65 mg 325 mg PO DAILY 06/30/22 02/17/25 08/21/22 History iron) tablet (iron) omega 3-dha 60 mg-epa 90 mg-fish 1 cap PO DAILY 07/12/22 02/17/25 08/21/22 History oil 500 mg capsule, delayed release (Fish Oil) allopurinol 100 mg tablet 100 mg PO DAILY 02/05/0102/17/25 08/21/22 History insulin glargine 100 unit/mL 50 unit subcut DAILY 04/05/23 02/17/25 07/05/23 12:00 History subcutaneous cartridge acyclovir 200 mg capsule 200 mg PO DAILY 08/23/23 02/17/25 Unknown History Allergies Allergy/AdvReac Type Severity Reaction Status Date / Time No Known Allergies Allergy Verified 03/26/25 08:56 [facility] Past Medical History Medical History Anemia Tumor lysis syndrome Glaucoma Chronic kidney disease Insulin dependent type 2 diabetes mellitus Hyperlipidemia Hypertension Family History Family History Mother Heart failure Sibling Myocardial infarction Father Heart problem Cerebrovascular accident Social History Social History Social History: Surrogate medical decision maker: Dora Mendoza, spouse. Code status: Full code. Smoking packs per day: 1 Smoking cigarettes per day: 20.0 Years smoked: 10 Smoking pack-years: 10.00 Smoking status: Former smoker Tobacco type: cigarettes Second hand tobacco smoke exposure: No Alcohol intake: never Substance use: former Substance use type: does not use Last use: 1983 Do You Feel Safe in your Home?: Yes Lack of Transportation: No Lack of Food: Never True Current Housing: I Have Housing Concerned About Future Housing: No Difficulty Paying Gas/Electric Bills: No Difficulty Paying for Meds: No Currently Unemployed: No Education: Associate Degree Difficulty w/ Childcare or Family Care: No Living arrangements: other Additional living arrangements comments: with sp Occupation/Education: retired Additional occupation/education comments: Retired from [employer]. Gender identity (if verbalized by the patient): Male Spiritual care concerns: No Exam Const: General: no acute distress and alert Nutritional Appearance: well nourished Orientation/consciousness: patient oriented x3 Limitations: no limitations HENMT: Head: normal to inspection Mouth: Yes lip normal and Yes moist mucous membranes Teeth and gingiva: abnormal tooth and associated gingiva (left lower jaw swelling, no fluctuance. no trismus) Throat: posterior oropharynx normal and uvula midline Eyes: EOM: EOMs intact bilaterally Other: floor of the mouth soft Neck: Neck: normal visual inspection Resp: Effort & Inspection: normal respiratory effort Auscultation: clear to auscultation bilaterally Cardio: Rate: regular rate Rhythm: regular rhythm Heart sounds: no murmurs Skin: General skin exam: normal color Rashes: no rashes Wounds: no wounds Neuro: General: patient oriented x3, moves all extremities and CN's II-XI intact bilaterally Psych: Mental Status: mental status grossly normal Affect: normal affect Attitude: cooperative Course Reevaluation(s) Reevaluation #1: I Discussed with patient that CT did not show an abscess. HE was given dose of clindamycin 900 mg IV in ER. He understands he will be discharged on antibiotics. He states he will follow up with dentist on Monday Date: 04/05/25 Time: 14:22 Vital Signs Vital signs: Vital Signs Temperature 98.7 F 04/05/25 09:40 Pulse Rate 106 H 04/05/25 09:40 Respiratory Rate 18 04/05/25 09:40 Blood Pressure 127/71 04/05/25 09:40 Pulse Oximetry 100 04/05/25 09:40 Temperature 98.7 F 04/05/25 09:40 Pulse Rate 106 H 04/05/25 09:40 Respiratory Rate 18 04/05/25 09:40 Blood Pressure 127/71 04/05/25 09:40 Pulse Oximetry 100 04/05/25 09:40 MDM - Dental/Oral Differential Diagnosis Differential diagnosis: Likely gingival abscess, dental caries, toothache and dental abscess Medical Records Attestation: I reviewed the patient's medical records. Imaging Data Radiologist's impression: ITS Impressions Face CT 04/05/25 14:01 IMPRESSION: Soft tissue swelling consistent with probable cellulitis. No abscess identified. Follow-up suggested to assess as clinically warranted Discharge Plan Discharge Clinical Impression: Dental infection, Cellulitis, face Patient Disposition: Home Condition: Stable Instructions: Antibiotic Form, Dental Abscess (ED) Additional Instructions: IF you develop difficulty swallowing, shortness of breath return to ER Patient Language: Welsh Prescriptions: New clindamycin HCl [Cleocin HCl] 150 mg capsule 450 mg PO Q8H 10 Days Qty: 90 0RF No Action ferrous sulfate [iron] 325 mg (65 mg iron) Tablet 325 mg PO DAILY Patient Comments: . cholecalciferol (vitamin D3) [Vitamin D3] 25 mcg (1,000 unit) Capsule 25 mcg PO DAILY Patient Comments: . Lantus U-100 Insulin 100 unit/mL Cartridge 50 unit SUBCUT DAILY acyclovir 200 mg Capsule 200 mg PO DAILY Patient Comments: ................. Fish Oil 60-90-500 mg capsule,delayed release(DR/EC) 1 cap PO DAILY atorvastatin 80 mg tablet 80 mg PO HS Patient Comments: . amlodipine 10 mg tablet 10 mg PO DAILY Patient Comments: . triamterene-hydrochlorothiazid 75-50 mg tablet 75 tablet PO DAILY Rx Instructions: triamterene 75 mg hydrochlorothiazide 50 mg latanoprost 0.005 % drops 1 drp EACH EYE HS metoprolol tartrate 50 mg tablet 50 mg PO BID Humalog KwikPen Insulin 200 unit/mL (3 mL) insulin pen 18 unit SUBCUT TID Patient Comments: .. Rx Instructions: TID with meals allopurinol 100 mg tablet 100 mg PO DAILY Patient Comments: . Follow-up/Referrals: UNKNOWN,DOCTOR [Primary Care Provider] Stand Alone Forms: Work/School Release IP
--- NOTE | 2025-04-05 12:53 | PC.NURSE ---
Pharmacy called for antibiotic. They state they just have to tube it up.
[2025-04-05] MEDS: CLINDAMYCIN 900 MG/D5W 50 ML 900 MG/50 ML PIGGYBACK 50 MG IVPB (12:58)
[2025-04-05 14:15] VITALS: BP 107/58; PULSE 90; RESP 18; O2SAT 100
[2025-04-05 14:46] VITALS: BP 104/50; PULSE 72; RESP 18; O2SAT 100
== END 2025-04-05 15:02 | disposition home or self-care (01) ==
PROVIDERS: Emergency Provider General Practice
DX: K04.7 Periapical abscess without sinus (principal); L03.211 Cellulitis of face; D64.9 Anemia, unspecified; I12.9 Hypertensive chronic kidney disease with stage 1 through stage 4 chronic kidney disease, or unspecified chronic kidney disease; E11.22 Type 2 diabetes mellitus with diabetic chronic kidney disease; N18.9 Chronic kidney disease, unspecified; Z79.4 Long term (current) use of insulin; E78.5 Hyperlipidemia, unspecified
CPT/HCPCS: 70486; 96365; 99284